=== PATIENT | male | born 1965 | race Caucasian/White ===

== ENCOUNTER → 2020-11-13 10:54 | Outpatient (BNVA) | payer OTHER, SELFPAY | PROVIDERS: Visit Provider Urology | DX: Z76.89 Persons encountering health services in other specified circumstances (principal) ==

== ENCOUNTER → 2022-06-04 15:16 | Outpatient (BNVA) | payer OTHER, SELFPAY | PROVIDERS: PCP Internal Medicine; Visit Provider Urology | DX: R79.89 Other specified abnormal findings of blood chemistry (principal); N40.1 Benign prostatic hyperplasia with lower urinary tract symptoms; N13.8 Other obstructive and reflux uropathy | CPT/HCPCS: 51798 ==

== ENCOUNTER 2023-02-01 07:54 | Outpatient (REF) | payer OTHER, SELFPAY ==
[2023-02-01 09:34] LABS: Prostate Specific Antigen 1.18 ng/mL (<0.05-4.0)
[2023-02-07 16:19] LABS: Testosterone, Total 151 ng/dL (250-1100)
== END 2023-02-01 07:55 | disposition home or self-care (01) ==
LOC: HO.LAB 07:54
PROVIDERS: Visit Provider Urology
DX: Z12.5 Encounter for screening for malignant neoplasm of prostate (principal); R79.89 Other specified abnormal findings of blood chemistry; E29.1 Testicular hypofunction
CPT/HCPCS: 36415; 84153; 84403; 85014

== ENCOUNTER → 2023-02-03 10:00 | Outpatient (BNVA) | payer OTHER, SELFPAY | PROVIDERS: PCP Internal Medicine; Visit Provider Urology | DX: Z13.89 Encounter for screening for other disorder (principal) ==

== ENCOUNTER → 2023-03-10 10:18 | Outpatient (BNVA) | payer OTHER, SELFPAY | PROVIDERS: PCP Internal Medicine; Visit Provider Urology ==

== ENCOUNTER 2023-09-14 16:06 | Outpatient (REF) | payer OTHER, SELFPAY ==
[2023-09-14 16:44] LABS: Hematocrit 37.6 % (42.0-52.0); Mean Corpuscular HGB Conc 34.6 g/dl (31.0-36.0); Mean Corpuscular Hemoglobin 30.5 pg (27.0-33.0); Mean Corpuscular Volume 88.3 fL (80.0-98.0); Platelet Count 215 X10*3/uL (160-400); Red Blood Count 4.26 X10*6/uL (4.60-5.80); Red Cell Distribution Width 12.9 % (11.0-16.0); White Blood Count 6.8 X10*3/uL (4.8-10.8)
[2023-09-14 17:26] LABS: Prostate Specific Antigen 0.62 ng/mL (<0.05-4.0)
[2023-09-18 21:48] LABS: Testosterone, Total 229 ng/dL (250-1100)
== END 2023-09-14 16:07 | disposition home or self-care (01) ==
LOC: HO.LAB 16:06
PROVIDERS: Visit Provider Urology
DX: E29.1 Testicular hypofunction (principal); Z12.5 Encounter for screening for malignant neoplasm of prostate
CPT/HCPCS: 36415; 84153; 84403; 85027

== ENCOUNTER 2023-09-20 13:23 | Outpatient (AMB) | payer OTHER, SELFPAY ==
--- NOTE | 2023-09-20 13:24 | MHC.OFFVIS ---
Intake Intake Visit Reasons: PSA/Testosterone(Testo Pending) Intake Note: Patient is Present for Telephone Follow Up For Urology Med: Tadalafil, Testosterone Antibiotic Allergy: None Blood Thinner: None Allergies No Known Allergies Allergy (Verified 06/04/22 07:50) HPI HPI Comments History of Present Illness Details Farhan is a pleasant male. He is a patient of Dr. Humphrey. He is seen for the following urologic conditions - hypogonadism - lower urinary tract symptoms - retrograde ejaculation - erectile dysfunction Telemedicine Evaluation 15 min Consultation [employer] Ellen Video attempted Good response to tadalafil 5 mg daily. Would like to add 20 mg on demand Testosterone low end of normal for him Increase T backed 0.5 cc subQ weekly Six month follow-up lab work Hypogonadism: 0.5 cc subcu weekly T is at higher end of range Reduced to 0.4 cc weekly He presents today for further evaluation and followup of his hypogonadism - stable lab work - doing well otherwise. Initial symptoms include erectile dysfunction Yes decreased libido Yes change in mood/depression Yes in muscle size/strength Yes increased fatigue/malaise Yes increased abdominal fat No tender breasts/gynecomastia No hair loss No osteopenia No The onset of symptoms has been gradual. Associate conditions include obstructive sleep apnea No CAD No diabetes Yes - with retrograde ejaculation dyslipidemia Yes hypertension Yes obesity No stress - financial, family, employment No heavy alcohol or illicit drug use No He has been taking antidepressants, anxiolytics, antipsychotics. Laboratory results baseline 03/16 T 248 01/15 T 309 02/15 T 520, PSA 0.5, 08/17 T 940 PS A0.6 02/16 T 740 PSA 0.6, 08/18 806, 0.5 04/19 897 PSA 1.4., 04/21 1300 1.6 - 02/20 P 1.2, T150, 09/22 T 229 Current therapy includes injectable exogenous testosterone 0.5 mg weekly. Response to therapy has been no change. Prior therapy includes topical, testosterone, minimal effect. Therapeutic plan Six months. Review [facility] Medical History Hypogonadism in male Insomnia Anxiety disorder GERD (gastroesophageal reflux disease) Asthma Diabetes mellitus, type II HTN (hypertension) Erectile disorder due to medical condition in male Urgency-frequency syndrome Bladder outlet obstruction Low testosterone Surgical History History of surgery Review of Systems Const All systems reviewed & are unremarkable except as noted in HPI and below Reports no additional complaints Resp Reports no additional complaints GI Reports no additional complaints Reports as per HPI Musc Reports no additional complaints Physical Exam Telemedicine evaluation Appropriate responses Regular breathing rate and rhythm HEENT Head: Yes normal to inspection Ears: hearing grossly normal bilaterally Eyes General: appearance normal, both eyes and all related structures Neck Neck: Yes normal visual inspection Chest Chest palpation & inspection: normal inspection of the chest Resp Effort & Inspection: normal respiratory effort and able to speak in complete sentences Assessment & Plan Assessment & Plan (1) Erectile dysfunction associated with type 2 diabetes mellitus: Code(s): E11.69 - Type 2 diabetes mellitus with other specified complication; N52.1 - Erectile dysfunction due to diseases classified elsewhere (2) Low testosterone in male: Code(s): R79.89 - Other specified abnormal findings of blood chemistry Plan Six month follow-up labs Orders: Orders Complete Blood Count no Diff 6 Months R79.89 - Other specified abnormal findings of blood chemistry Prostate Specific Antigen 6 Months R79.89 - Other specified abnormal findings of blood chemistry Testosterone, Total 6 Months R79.89 - Other specified abnormal findings of blood chemistry Medications: New syringe (disposable) (BD Luer-Brendan Syringe) Testosterone injection weekly 30 ea 0RF E11.69 - Type 2 diabetes mellitus with other specified complication, E34.9 - Endocrine disorder, unspecified, N52.1 - Erectile dysfunction due to diseases classified elsewhere syringe with needle, safety As directed 100 ea 0RF E11.69 - Type 2 diabetes mellitus with other specified complication, N52.1 - Erectile dysfunction due to diseases classified elsewhere tadalafil On demand medication take 60 minutes before intended activity 20 mg PO ONCE 30 days PRN 30 tabs 0RF sexual activity E11.69 - Type 2 diabetes mellitus with other specified complication, N52.1 - Erectile dysfunction due to diseases classified elsewhere Changed From testosterone cypionate (Depo-Testosterone) Two injections from each vial 80 mg (0.4 mL) subcut QWEEK 4 weeks 2 mL 1RF [id number] To testosterone cypionate (Depo-Testosterone) Two injections from each vial 100 mg (0.5 mL) subcut QWEEK 4 weeks 2 mL 5RF [id number] Refilled tadalafil (Cialis) 5 mg PO DAILY 90 days 90 tabs 1RF R79.89 - Other specified abnormal findings of blood chemistry Patient Instructions: Imaging studies, laboratory and physical exam results were discussed and reviewed in detail. No major barriers to patient understanding were identified. An opportunity to ask questions regarding the treatment plan was provided. All questions were answered. The patient expressed understanding and agreement with the above treatment plan. The patient is aware they should contact our office by phone for worsening of their current condition or the appearance of new urologic symptoms. Compliance is encouraged with any medications and followup testing that is ordered. It is a privilege to participate in the urologic care of your patient. If you have any questions or concerns regarding treatment for the above conditions, or other urologic issues, please do not hesitate to contact me. The office telephone contact is [phone]. This note is constructed using voice recognition software. While every effort has been made to ensure accuracy loader malt house errors may have been included. Yours sincerely, Dr Abhishek Angel MD, ORLIN [facility] - Urology Providers of Expert, Compassionate Care for the Genitourinary System Telehealth Telehealth Location of provider rendering services: practice address Location of patient: address on file Patient Identification confirmed using: Name, : Yes Telehealth method: video Patient verbally consented to treatment: Yes Patient verbally consented to billing insurance company: Yes Patient informed of any privacy concerns related to visit: Yes Coding Level of Care Code Tele Est Pt Level 3 (08603) Diagnoses Erectile dysfunction associated with type 2 diabetes mellitus E11.69; N52.1 Low testosterone in male R79.89
== END 2023-09-20 14:00 | disposition home or self-care (01) ==
LOC: HO.HUSH 13:23
PROVIDERS: PCP Internal Medicine; Visit Provider Urology
DX: E11.69 Type 2 diabetes mellitus with other specified complication (principal); N52.1 Erectile dysfunction due to diseases classified elsewhere; R79.89 Other specified abnormal findings of blood chemistry
CPT/HCPCS: 99213

== ENCOUNTER → 2023-09-20 13:23 | Outpatient (BNVA) | payer OTHER, SELFPAY | PROVIDERS: PCP Internal Medicine; Visit Provider Urology ==

== ENCOUNTER 2024-04-19 09:34 | Outpatient (REF) | payer OTHER, SELFPAY ==
[2024-04-19 10:33] LABS: Hematocrit 35.9 % (42.0-52.0); Hemoglobin 12.4 g/dl (14.0-18.0); Mean Corpuscular HGB Conc 34.5 g/dl (31.0-36.0); Mean Corpuscular Hemoglobin 30.2 pg (27.0-33.0); Mean Corpuscular Volume 87.3 fL (80.0-98.0); Mean Platelet Volume 10.9 fL (9.4-12.4); Platelet Count 191 X10*3/uL (160-400); Red Blood Count 4.11 X10*6/uL (4.60-5.80); Red Cell Distribution Width 13.4 % (11.0-16.0); White Blood Count 5.7 X10*3/uL (4.8-10.8)
[2024-04-23 17:14] LABS: Testosterone, Total 361 ng/dL (250-1100)
== END 2024-04-19 09:35 | disposition home or self-care (01) ==
LOC: HO.HMGCLDS 09:34
PROVIDERS: PCP Internal Medicine; Visit Provider Urology
DX: R79.89 Other specified abnormal findings of blood chemistry (principal); Z12.5 Encounter for screening for malignant neoplasm of prostate
CPT/HCPCS: 36415; 84153; 84403; 85027

== ENCOUNTER 2024-05-30 14:13 | Outpatient (AMB) | payer OTHER, SELFPAY ==
--- NOTE | 2024-05-30 14:18 | MHC.OFFVIS ---
Intake Visit Reasons: 8M Follow Up-PSA/Testosterone(set) Intake Note: Patient is Present for Follow Up Urology Medication:Tadalafil, Testosterone Antibiotic Allergies:None Blood Thinners: None Roll Tube Setter Required: No Allergies No Known Allergies Allergy (Verified 05/30/24 14:22) Medication List - Last Reconciled 05/30/24 by Abhishek Angel MD glipizide ER 2.5 mg PO DAILY hydrochlorothiazide 12.5 mg PO DAILY hydrochlorothiazide 25 mg PO DAILY lamotrigine 100 mg PO DAILY lisinopril 40 mg PO DAILY metformin 1,000 mg PO BID metoprolol tartrate 0 mg PO nifedipine ER 60 mg PO DAILY pantoprazole 40 mg PO DAILY pantoprazole 20 mg PO DAILY sertraline mg PO syringe (disposable) (BD Luer-Brendan Syringe) Testosterone injection weekly syringe with needle, safety As directed tadalafil (Cialis) 5 mg PO DAILY 90 days tadalafil 20 mg PO ONCE PRN 30 days testosterone cypionate (Depo-Testosterone) 100 mg (0.5 mL) subcut QWEEK 4 weeks trazodone 50 - 100 mg PO BEDTIME HPI Comments Details: Farhan is a pleasant male. He is a patient of Dr. Humphrey. He is seen for the following urologic conditions - hypogonadism - lower urinary tract symptoms - retrograde ejaculation - erectile dysfunction Telemedicine Evaluation 15 min Consultation [employer] Ellen Video attempted Good response to tadalafil 5 mg daily. Would like to add 20 mg on demand Testosterone low end of normal for him Increase T backed 0.5 cc subQ weekly Six month follow-up lab work Hypogonadism: 0.5 cc subcu weekly T is at higher end of range Reduced to 0.4 cc weekly He presents today for further evaluation and followup of his hypogonadism - stable lab work - doing well otherwise. Initial symptoms include erectile dysfunction Yes decreased libido Yes change in mood/depression Yes in muscle size/strength Yes increased fatigue/malaise Yes increased abdominal fat No tender breasts/gynecomastia No hair loss No osteopenia No The onset of symptoms has been gradual. Associate conditions include obstructive sleep apnea No CAD No diabetes Yes - with retrograde ejaculation dyslipidemia Yes hypertension Yes obesity No stress - financial, family, employment No heavy alcohol or illicit drug use No He has been taking antidepressants, anxiolytics, antipsychotics. Laboratory results baseline 5/17 T 248 01/15 T 309 02/15 T 520, PSA 0.5, 08/17 T 940 PS A0.6 02/16 T 740 PSA 0.6, 08/18 806, 0.5 04/19 897 PSA 1.4., 04/21 1300 1.6 - 02/20 P 1.2, T150, 09/22 T 229 Current therapy includes injectable exogenous testosterone 0.5 mg weekly. Response to therapy has been no change. Prior therapy includes topical, testosterone, minimal effect. Therapeutic plan Six months. Review [facility] Medical History Hypogonadism in male Insomnia Anxiety disorder GERD (gastroesophageal reflux disease) Asthma Diabetes mellitus, type II HTN (hypertension) Erectile disorder due to medical condition in male Urgency-frequency syndrome Bladder outlet obstruction Low testosterone Surgical History History of surgery Review of Systems Const Denies chills and Denies fever(s) Card Reports no additional complaints and Denies syncope Resp Denies cough GI Denies abdominal pain and Denies heartburn Reports as per HPI and Denies change in libido Neuro Denies syncope Psych Denies change in libido Endo Denies change in libido Physical Exam Const General: cooperative, healthy appearing, comfortable and no acute distress Orientation/consciousness: patient oriented x3 HEENT Face and sinus: Yes normal facial exam Mouth: moist mucous membranes Neck Neck: Yes normal visual inspection, Yes full ROM and Yes trachea midline Chest Chest palpation & inspection: normal inspection of the chest Resp Effort & Inspection: normal respiratory effort, able to speak in complete sentences and no respiratory distress GI Inspection: Yes normal to inspection Back/Spine/Pelvis Cervical Spine: normal cervical lordosis Thoracic/Lumbar Spine: thoracic and lumbar spine normal to inspection Skin General skin exam: no rashes or lesions noted Neuro General: patient oriented x3, gait normal, tone normal and moves all extremities Extrem General: Yes normal to inspection and Yes capillary refill normal Assessment & Plan Assessment & Plan (1) Erectile dysfunction associated with type 2 diabetes mellitus: Code(s): E11.69 - Type 2 diabetes mellitus with other specified complication; N52.1 - Erectile dysfunction due to diseases classified elsewhere Category: Medical (2) Low testosterone in male: Code(s): R79. - Other specified abnormal findings of blood chemistry Category: Medical Plan Refill medications Six month follow-up labs Orders: Orders Prostate Specific Antigen 6 Months R7. - Other specified abnormal findings of blood chemistry Testosterone, Total 6 Months R7. - Other specified abnormal findings of blood chemistry Complete Blood Count no Diff 6 Months R7 - Other specified abnormal findings of blood chemistry Medications: New insulin syringe-needle U-100 As directed 30 ea 0RF E29.1 - Testicular hypofunction, R7. - Other specified abnormal findings of blood chemistry needle (disp) 18 G (BD Regular [place]) As directed - draw up testosterone 30 ea 0RF E29.1 - Testicular hypofunction, R7. - Other specified abnormal findings of blood chemistry Patient Instructions: Imaging studies, laboratory and physical exam results were discussed and reviewed in detail. No major barriers to patient understanding were identified. An opportunity to ask questions regarding the treatment plan was provided. All questions were answered. The patient expressed understanding and agreement with the above treatment plan. The patient is aware they should contact our office by phone for worsening of their current condition or the appearance of new urologic symptoms. Compliance is encouraged with any medications and followup testing that is ordered. It is a privilege to participate in the urologic care of your patient. If you have any questions or concerns regarding treatment for the above conditions, or other urologic issues, please do not hesitate to contact me. The office telephone contact is [phone]. This note is constructed using voice recognition software. While every effort has been made to ensure accuracy solution professional errors may have been included. Yours sincerely, Dr Abhishek Angel MD, ORLIN [facility] - Urology Providers of Expert, Compassionate Care for the Genitourinary System Coding Level of Care Code Est Pt Level 3 (94992) Diagnoses Erectile dysfunction associated with type 2 diabetes mellitus E11.69; N52.1 Low testosterone in male R79.
== END 2024-05-30 14:39 | disposition home or self-care (01) ==
PROVIDERS: PCP Internal Medicine; Visit Provider Urology
DX: E11.69 Type 2 diabetes mellitus with other specified complication (principal); N52.1 Erectile dysfunction due to diseases classified elsewhere; R79.89 Other specified abnormal findings of blood chemistry
CPT/HCPCS: 99213

== ENCOUNTER → 2024-05-30 14:13 | Outpatient (BNVA) | payer OTHER, SELFPAY | PROVIDERS: PCP Internal Medicine; Visit Provider Urology ==

== ENCOUNTER 2024-11-30 08:55 | Outpatient (AMB) | payer OTHER, SELFPAY ==
--- NOTE | 2024-11-30 08:55 | MHC.OFFVIS ---
Intake Visit Reasons: 6M review(Pt refused labs) Intake Note: Patient is present for 6M (PT REFUSED LABS) Urology Medication:TADALAFIL,TESTOSTERONE Antibiotic Allergy:NONE Blood Thinner:NONE Sr. Vendor Management Associate Required: No Allergies No Known Allergies Allergy (Verified 11/30/24 08:56) HPI Comments Details: Farhan is a pleasant male. He is a patient of Dr. Humphrey. He is seen for the following urologic conditions - hypogonadism - lower urinary tract symptoms - retrograde ejaculation - erectile dysfunction Telemedicine Evaluation 15 min Consultation [employer] Ellen Video attempted Lab work not done Labs today and 6 months Rx done Hypogonadism: 0.5 cc subcu weekly T is at higher end of range Reduced to 0.4 cc weekly He presents today for further evaluation and followup of his hypogonadism - stable lab work - doing well otherwise. Initial symptoms include erectile dysfunction Yes decreased libido Yes change in mood/depression Yes in muscle size/strength Yes increased fatigue/malaise Yes increased abdominal fat No tender breasts/gynecomastia No hair loss No osteopenia No The onset of symptoms has been gradual. Associate conditions include obstructive sleep apnea No CAD No diabetes Yes - with retrograde ejaculation dyslipidemia Yes hypertension Yes obesity No stress - financial, family, employment No heavy alcohol or illicit drug use No He has been taking antidepressants, anxiolytics, antipsychotics. Laboratory results baseline 03/16 T 248 01/15 T 309 02/15 T 520, PSA 0.5, 08/17 T 940 PS A0.6 02/16 T 740 PSA 0.6, 08/18 806, 0.5 04/19 897 PSA 1.4., 04/21 1300 1.6 - 02/20 P 1.2, T150, 09/22 T 229 Current therapy includes injectable exogenous testosterone 0.5 mg weekly. Response to therapy has been no change. Prior therapy includes topical, testosterone, minimal effect. Therapeutic plan Six months. Review [facility] Medical History (Updated 11/30/24 @ 12:45 by Abhishek Angel MD) Hypogonadism in male Insomnia Anxiety disorder GERD (gastroesophageal reflux disease) Asthma Diabetes mellitus, type II HTN (hypertension) Erectile disorder due to medical condition in male Urgency-frequency syndrome Bladder outlet obstruction Low testosterone Surgical History History of surgery Review of Systems Const All systems reviewed & are unremarkable except as noted in HPI and below Reports no additional complaints Resp Reports no additional complaints GI Reports no additional complaints Reports as per HPI Musc Reports no additional complaints Physical Exam Telemedicine evaluation Appropriate responses Regular breathing rate and rhythm HEENT Head: Yes normal to inspection Ears: hearing grossly normal bilaterally Eyes General: appearance normal, both eyes and all related structures Neck Neck: Yes normal visual inspection Chest Chest palpation & inspection: normal inspection of the chest Resp Effort & Inspection: normal respiratory effort and able to speak in complete sentences Telehealth Telehealth Location of provider rendering services: practice address Location of patient: address on file Patient Identification confirmed using: Name, : Yes Telehealth method: voice only Patient verbally consented to treatment: Yes Patient verbally consented to billing insurance company: Yes Patient informed of any privacy concerns related to visit: Yes Assessment & Plan Assessment & Plan (1) Erectile dysfunction associated with type 2 diabetes mellitus: Code(s): E11.69 - Type 2 diabetes mellitus with other specified complication; N52.1 - Erectile dysfunction due to diseases classified elsewhere Category: Medical (2) BPH w urinary obs/LUTS: Code(s): N40.1 - Benign prostatic hyperplasia with lower urinary tract symptoms; N13.8 - Other obstructive and reflux uropathy Category: Medical (3) Low testosterone: Code(s): R79.89 - Other specified abnormal findings of blood chemistry Category: Medical Plan Rx 6m f/u Orders: Orders Prostate Specific Antigen 6 Months R79.89 - Other specified abnormal findings of blood chemistry Testosterone, Total 6 Months R79.89 - Other specified abnormal findings of blood chemistry Complete Blood Count no Diff 6 Months R79.89 - Other specified abnormal findings of blood chemistry Medications: Refilled tadalafil On demand medication take 60 minutes before intended activity 20 mg PO ONCE 30 days PRN 30 tabs 0RF sexual activity E11.69 - Type 2 diabetes mellitus with other specified complication, N52.1 - Erectile dysfunction due to diseases classified elsewhere testosterone cypionate (Depo-Testosterone) Two injections from each vial 100 mg (0.5 mL) subcut QWEEK 4 weeks 2 mL 5RF [id number] tadalafil (Cialis) 5 mg PO DAILY 90 days 90 tabs 1RF R79.89 - Other specified abnormal findings of blood chemistry Patient Instructions: Imaging studies, laboratory and physical exam results were discussed and reviewed in detail. No major barriers to patient understanding were identified. An opportunity to ask questions regarding the treatment plan was provided. All questions were answered. The patient expressed understanding and agreement with the above treatment plan. The patient is aware they should contact our office by phone for worsening of their current condition or the appearance of new urologic symptoms. Compliance is encouraged with any medications and followup testing that is ordered. It is a privilege to participate in the urologic care of your patient. If you have any questions or concerns regarding treatment for the above conditions, or other urologic issues, please do not hesitate to contact me. The office telephone contact is [phone]. This note is constructed using voice recognition software. While every effort has been made to ensure accuracy busperson errors may have been included. Yours sincerely, Dr Abhishek Angel MD, ORLIN [facility] - Urology Providers of Expert, Compassionate Care for the Genitourinary System Coding Level of Care Code Tele Est Pt Level 3 (00734) Diagnoses Erectile dysfunction associated with type 2 diabetes mellitus E11.69; N52.1 BPH w urinary obs/LUTS N40.1; N13.8 Low testosterone R79.89
--- OUTSIDE RECORDS SUMMARY | 2024-11-30 09:14 | XMS_ITS | Encounter Summary ---
Author Organization [facility] Address [phone] [place] [address] Care Team Providers Care Circular Ripsaw Operator Name Role Phone Jw Humphrey MD Primary Care Provider [phone]- [phone] Rita Wang PA-C Primary Care Provider Encounter Details Date Type Department Care Team (Late st Contact Info) Description 02/15/2024 Transcribe Orders [facility] SPECIMEN [address] [place] [address] Bridget Root CNP 2013 [facility] [address] [place] [phone] [email or web address] Social History Tobacco Use Types Packs/Day Years [...] with a working camera? Not on file Sex and Gender Information Value Date Recorded Sex Assigned at Male 02/07/2020 11:18 AM EDT Gender Identity Male 02/07/2020 11:18 AM EDT Sexual Orientation Straight 02/07/2020 11 :18 AM EDT documented as of this encounter Plan of Treatment Upcoming Encounters Date Type Department Care Team (Late st Contact Info) Description 01/22/2025 8:05 AM EDT Pre-Admission Testing [facility] PRETESTING [address] [place] [phone] Beto Ansari MD [address] [place] [address] [email or web address] 02/12/2025 Procedure Pass [facility] PERIOPERATIVE DEPT [address] [place] [address] 02/12/2025 11:30 AM EDT Hospital Encounter [facility] PERIOPERATIVE DEPT [address] [place] [address] Beto Ansari MD [address] [place] [address] [email or web address] 02/12/2025 11:30 AM EDT Anesthesia Event [facility] PERIOPERATIVE DEPT [address] [place] [address] Mayra Mckay, MAGDIEL [address] [place] [address] 02/12/2025 11:30 AM EDT - 02/12/2025 1:49 PM EDT Surgery [facility] PERIOPERATIVE DEPT [address] [place] [address] Beto Ansari MD [address] [place] [address] [email or web address] ARTHROPLASTY TOTAL HIP Scheduled Procedures Name Priority Associated Diagnoses Date/Ti me ARTHROPLASTY TOTAL HIP Primary osteoarthritis of left hip 02/12/2025 11:30 AM EDT MODIFIER ARTHROPLASTY HIP GURDEEP TAPERLOC MICROPLASTY Primary osteoarthritis of left hip 02/12/2025 11:30 AM EDT documented as of this encounter Visit Diagnoses Not on filedocumented in this encounter Care Teams Circular Ripsaw Operator Relationship Specialty Start Date End Date Jw Humphrey MD [address] [place] [phone] PCP - General Internal Medicine 09/27/23 10/24/24 Rita Wang PA-C [address] [place] [phone] PCP - General 10/25/24 documented as of this encounter Additional Source Comments The information contained in this document represents components of the legal health record. It is not the complete legal health record.[facility]
--- OUTSIDE RECORDS SUMMARY | 2024-11-30 09:14 | XMS_ITS | Encounter Summary ---
Author Organization [facility] Address [phone] [place] [address] Care Team Providers Care Client Director Name Role Phone Jw Humphrey MD Primary Care Provider [phone]- [phone] Jw Humphrey MD Primary Care Provider [phone]- [phone] Rita Wang PA-C Primary Care Provider Encounter Details Date Type Department Care Team (Late Contact Info) Description 06/18/2019 Procedure Pass [facility] PERIOPERATIVE DEPT [address] [place] [phone] Social History Tobacco Use Types Packs/Day Years Used Date Smoking Tobacco: Former Cigarettes 0.5 27.9 0 06/12/1991 - 05/22/2019 Smokeless Tobacco: Former Chew Quit: 06/12/1989 Comments:rough estimate star t date Sex and Gender Information Value Date Recorded Sex Assigned at Male 02/07/2020 11:18 AM EDT Gender Identity Male 02/07/2020 11:18 AM EDT Sexual Orientation Straight 02/07/2020 11 :18 AM EDT documented as of this encounter Plan of Treatment Upcoming Encounters Date Type Department Care Team (Late Contact Info) Description 01/22/2025 8:05 AM EDT Pre-Admission Testing [facility] PRETESTING [address] [place] [id number] Beto Ansari MD [address] [place] [address] [email or web address] 02/12/2025 Procedure Pass [facility] PERIOPERATIVE DEPT [address] [place] [address] 02/12/2025 11:30 AM EDT Hospital Encounter [facility] PERIOPERATIVE DEPT [address] [place] [address] Beto Ansari MD [address] [place] [address] [email or web address] 02/12/2025 11:30 AM EDT Anesthesia Event [facility] PERIOPERATIVE DEPT [address] [place] [address] Mayra Mckay CNP [address] [place] [address] [email or web address] 02/12/2025 11:30 AM EDT - 02/12/2025 1:49 PM EDT Surgery [facility] PERIOPERATIVE DEPT [address] [place] [address] Beto Ansari MD [address] [place] [address] [email or web address] ARTHROPLASTY TOTAL HIP Scheduled Procedures Name Priority [...] AM EST documented as of this encounter Care Teams Client Director Relationship Specialty Start Date End Date Jw Humphrey MD PCP - General Internal Medicine 06/10/19 09/26/23 Jw Humphrey MD [address] [place] [phone] PCP - General Internal Medicine 09/27/23 10/24/24 Rita Wang PA-C [address] [place] [phone] PCP - General 10/25/24 documented as of this encounter Additional Source Comments The information contained in this document represents components of the legal health record. It is not the complete legal health record.[facility]
--- OUTSIDE RECORDS SUMMARY | 2024-11-30 09:16 | XMS_ITS | Clinical Summary ---
Author Organization [facility] Address [phone] [place] [id number] Care Team Providers Care Leather Drier Name Role Phone Rita Wang PA-C Primary Care Provider Allergies Active Allergy Reactions Criticality Noted Date Comments Sulfamethoxazole-Trimethop rim Diarrhea,Nausea and/or Vomiting Medium 06/23/2019 Medications Medication Sig Dispensed Refills Start Date End Date Status metFORMIN (GLUCOPHAGE) 500 MG tablet Take 1,000 mg by mouth 2 (two) times a day with meals. Active lisinopril (PRINIVIL,ZESTRIL ) 40 MG tablet Take 40 mg by mouth daily. Active atorvastatin (LIPITOR) 10 MG tablet Take 10 mg by mouth daily. Active NIFEdipine (ADALAT CC) 60 MG 24 hr tablet Take 60 mg by mouth daily. Active lamoTRIgine (LAMICTAL) 100 MG tablet Take 100 mg by mouth daily. Active metoprolol tartrate (LOPRESSOR) 100 MG tablet Take 100 mg by mouth daily. Active sertraline (ZOLOFT) 100 MG tablet Take 200 mg by mouth daily. Active tamsulosin (FLOMAX) 0.4 mg Cap Take 0.4 mg by mouth nightly at bedtime. Active traZODone (DESYREL) 50 MG tablet Take 25-50 mg by mouth nightly at bedtime. Active glipiZIDE (GLUCOTROL XL) 2.5 MG 24 hr tablet Take 2.5 mg by mouth daily. 09/18/2022 Active SOOLANTRA 1 % APPLY IN THE MORNING TO FACE ROSACEA 2022 Active testosterone cypionate (DEPO-TESTOTERONE ) 200 mg/mL injection INJECT 80 MG (0.4 ML) SUBCUTANEOUSLY EVERY WEEK FOR 4 WEEKS TWO INJECTIONS FROM EACH VIAL 11/15/2022 Active tadalafiL (CIALIS) 5 MG tablet TAKE 1 TABLET BY MOUTH ONCE DAY. 11/08/2022 Active doxycycline hyclate (VIBRAMYCIN) 100 MG capsule Take 100 mg by mouth daily. Takes once daily for rosacea 02/01/2023 Active celecoxib (CELEBREX) 200 MG capsule Take 1 capsule (200 mg total) by mouth 2 (two) times a day as needed for pain (specific location in comments). 60 capsule 12/15/2023 Active metoprolol tartrate (LOPRESSOR) 50 MG tablet Take 50 mg by mouth nightly at bedtime. 01/15/2024 Active hydroCHLOROthiazi de (HYDRODIURIL) 25 MG tablet Take 1 tablet by mouth every morning. 12/07/2023 Active acetaminophen (TYLENOL) 500 MG tablet Take 2 tablets (1,000 mg total) by mouth every 8 (eight) hours as needed. 03/20/2024 Active amoxicillin (AMOXIL) 500 MG capsule Take 4 capsules (2,000 mg total) by mouth once as needed. Take 4 capsules one hour prior to any dental work or procedures. 12 capsule 1 04/16/2024 Active Active Problems Problem Noted Date Diagnosed Date History of total right hip replacement 4 Overview (03/20/2024): S/p T LORRI 03/19/24 Dr. Beto Marshall [facility] Primary osteoarthritis of right hip 03/19/2024 Wound infection 08/02/2019 Assessment & Plan (02/07/2020 8:27 PM EDT): Necrotizing soft tissue infection of his right foot and ankle debrided in late April and again in May 2019. He was home 06/19-07/27 with a VAC dressing and off antibiotics, and made good progress. On 07/27, he underwent planned readmission for STSG coverage of the wound. At that time, there was some concern for infection (malodor but not overt purulence), and the wound was irrigated with a solution of cefazolin, gentamicin, and bacitracin, and he was treated with systemic antibiotics post-op, primarily vancomycin and ciprofloxacin. Cultures from the OR grew enterococcus, peptostreptococcus, and corynebacterium. He did well, and was discharged home 08/01, on amoxicillin-clavulanate. He returned 08/02 with fever, chills, and new erythema about the wound, with serous discharge. He was started on empiric vancomycin, cefepime, and metronidazole, and promptly defervesed. Metronidazole was stopped 08/03, and cefepime was changed to ceftriaxone 08/05. He returned home 08/08 and did well subsequently, continuing vancomycin and ceftriaxone through 08/22. The wounds healed and he was doing very well at the time of follow-up with Dr. Blakely in October. That has remained the case. I have no objection to proceeding with right total hip arthroplasty. Assessment & Plan (08/16/2019 10:13 PM EDT): Necrotizing soft tissue infection of his right foot and ankle debrided in late April and again in May of this year. He was home 06/19-07/27 with a VAC dressing and off antibiotics, and made good progress. On 07/27, he underwent planned readmission for STSG coverage of the wound. At that time, there was some concern for infection (malodor but not overt purulence), and the wound was irrigated with a solution of cefazolin, gentamicin, and bacitracin, and he was treated with systemic antibiotics post-op, primarily vancomycin and ciprofloxacin. Cultures from the OR grew enterococcus, peptostreptococcus, and corynebacterium. He did well, and was discharged home 08/01, on amoxicillin-clavulanate. He returned 08/02 with fever, chills, and new erythema about the wound, with serous discharge. He was started on empiric vancomycin, cefepime, and metronidazole, and promptly defervesed. Metronidazole was stopped 08/03, and cefepime was changed to ceftriaxone 08/05. He returned home 08/08 and has done well since then, on vancomycin and ceftriaxone. At this time, the skin graft is largely intact, without purulence or evidence of surrounding cellulitis, though with some serous discharge, and some bleeding distally. I discussed the situation with Dr. Blakely and we agreed, out of an abundance of caution, to continue antibiotics through 08/22. S/P split thickness skin graft 07/27/2019 Anemia 06/15/2019 Assessment & Plan (06/15/2019 2:25 PM EDT): Hgb persistently low in the 8s. Normocytic. Wound vac has been draining sanguinous fluid but H/H remains stable. - Check iron studies, folate, B12 - Transfuse if hgb<7 Cellulitis and abscess of foot 06/12/2019 Assessment & Plan (06/15/2019 2:24 PM EDT): Patient presented to [facility] on 05/22 with right ankle pain/swelling and erythema in the setting of non-penetrating trauma several days before. S/p I&D on 05/24 and 05/26 with Cx growing MSSA. Initially started on vancomycin, narrowed to cefazolin based on culture data. ID was consulted at OSH for He's abscess (which is pus/necrosis encapsulated by granulation tissue) concerning for osteo and evidence of tenosynovitis. ID was consulted, recommended at least 6 weeks of cefazolin from 05/26 (last I&D). During the hospital course he developed necrotic area on the dorsal lateral side of his foot, concerning for persistent infection/osteomyelitis needing further I&D and flap reconstruction for exposed tendons on the dorsal side for which he has been transferred to [facility]. Ankle and foot xrays with findings concerning for osteo and subcutaneous gas. S/p OR 06/13 with Ortho debridement of his right foot and ankle, with placement of wound vac. OR cultures growing enterobacter, and cultures from OSH 05/24 grew MSSA (records uploaded to [facility]). Since plan will be managed by Plastic Surgery going forward, he is transferring to their service today. Pain control has been challenging. In the past 24hr, he received 40mg of oxycontin, plus 35mg oxycodone prn, plus 1.5mg IV dilaudid prn. Based on equianalgesic conversion, this equals approximately 95mg of oxycodone in 24hr. He has tolerated it well without altered mental status, drowsiness, or decreased respirations. He says that he slept better last night and his pain is down to 7/10 now. Would recommend uptitrating the long-acting meds as below to reduce the need for breakthrough meds. - Transfer to Plastic Surgery service - Appreciate Ortho recs- now signed off - Per ortho, should wear multi-podus boot for RLE and NWB (they confirmed he should we this all the time, including at night to immobilize the foot) - MRI no longer needed per ortho - Discontinued IV cefazolin - Started IV Cefepime and IV Flagyl per ID recs - Appreciate ID consult - F/u OR culture data Pain control: - Increase Oxycontin to 30mg q12hr standing, uptitrate based on prn needs - Oxycodone 5mg Q3hr prn moderate breakthrough pain - IV dilaudid 0.5mg Q3hr prn severe breakthrough pain - Tylenol 975mg TID standing - Increased gabapentin to 300mg TID - Elevate RLE Atrial fibrillation 06/12/2019 Assessment & Plan (06/15/2019 2:24 PM EDT): Patient with a known history of pAfib for which he is rate controlled and on baby ASA at home. Following repeat debridement in OR on 05/26; patient flipped into Afib; likely from septic shock and required ICU stay. CHADs Vasc - 2; however held given potential surgical interventions. Had an TTE at OSH which was unremarkable. EKG was repeated, noted to be in NSR. - Continue home dose of metoprolol 100 mg QAM and 50mg QPM - Continue 81 mg ASA - No events on tele so has been discontinued - Will need to have discussion after the surgical intervention to determine if he should be on NOAC for stroke prevention HTN (hypertension) 06/12/2019 Assessment & Plan (06/15/2019 2:17 PM EDT): Stable, but on fairly robust regimen - and it is unclear what type of work-up has been done. Better controlled now that pain is better managed. - IAC consult for PCP records - Continue home dose of 40 mg lisinopril - Continue home dose of 60 mg nifedipine ER - Continue home dose of 12.5 mg HCTZ - Continue with home dose of 100 mg QAM and 50 mg QPM metoprolol Anxiety and depression 06/12/2019 Assessment & Plan (06/13/2019 2:21 PM EDT): Stable. - Continue home dose of 200 mg sertraline daily DM (diabetes mellitus), type 2 06/12/2019 Assessment & Plan (06/14/2019 3:54 PM EDT): Patient reports stable management at home and takes metformin. He denies checking blood sugars, but reports in general that in the past are below 200's. A1c checked this admission; noted to be 7.5%. BG mostly 100s. - Continue with sliding scale insulin and FS QID Adverse effect of anesthetic 04/30/2019 Overview (11/05/2024): aspiration pneumonia Encounters Date Type Department Care Team Description 11/12/2024 7:40 AM EST - 11/12/2024 11:59 PM EST Hospital Encounter [facility] [address] [place] [address] Bridget Root CNP Discharge Disposition: Home or Self Care 11/09/2024 Orders Only [facility] [address] [address] Bridget Root CNP Type 2 diabetes mellitus with other skin complication, without long-term current use of insulin (Primary Dx) 2024 Orders Only [facility] [address] [address] Bridget Root CNP Type 2 diabetes mellitus with other skin complication, without long-term current use of insulin (Primary Dx) 10/18/2024 11:03 AM EST - 10/18/2024 11:59 PM EST Hospital Encounter [facility] - Diagnostic Radiology, [address] [place] [address] [place] [address] Jael Jones PA-C Discharge Disposition: Home or Self Care 10/18/2024 10:45 AM EST - 10/18/2024 11:02 AM EST Hospital Encounter [facility] [address] [place] [address] Bridget Root CNP Discharge Disposition: Home or Self Care 10/18/2024 9:30 AM EST Office Visit [facility] [address] [place] [address] [place] [address] Bridget Root CNP Kalnenieks, Melonie C, PA-C Type 2 diabetes mellitus with other skin complication, without long-term current use of insulin (Primary Dx); Preop testing; Primary osteoarthritis of left hip 10/18/2024 Orders Only [facility] 2013 [facility] [place] [address] Jael Jones PA-C Left hip pain (Primary Dx) 10/18/2024 Orders Only [facility] [address] [facility] [place] [address] Bridget Root CNP Pre-op testing (Primary Dx) 10/10/2024 Orders Only [facility] [address] [facility] [place] [address] Jael Jones PA-C Aftercare following hip joint replacement surgery, unspecified laterality (Primary Dx) 10/01/2024 Documentation [facility] [address] [facility] [place] [address] Bridget Root CNP from Last 3 Months Immunizations Name Administration Dates Next Due Influenza Quadrivalent Preservative Free IM 12/2018 Pneumococcal polysaccharide PPSV23 08/01/2019 Social History Tobacco Use Types Packs/Day Years Used Date Smoking Tobacco: Former Cigarettes 0.5 27.9 0 06/12/1991 - 05/22/2019 Smokeless Tobacco: Former Chew Quit: 06/12/1989 Tobacco Cessation:Counseling Given: Not Answered Comments:rough estimate start date Alcohol Use Standard Drinks/Week Comments Never [...] Orientation Straight 02/07/2020 11 :18 AM EDT Last Filed Vital Signs Vital Sign Reading Time Taken Comments Blood Pressure 146/82 10/18/2024 9:31 AM EST Pulse 60 10/18/2024 9:31 AM EST Temperature 36.3 ??C (97.4 ??F) 03/19/2024 7:00 PM ED T Respiratory Rate 18 10/18/2024 9:31 AM EST Oxygen Saturation 96% 10/18/2024 9:31 AM EST Inhaled Oxygen Concentration - - Weight 106 kg (233 lb 9.6 oz) 10/18/2024 9:31 AM EST Height 172.7 cm (5' 8 ) 10/18/2024 9:31 AM EST Body Mass Index 35.52 10/18/2024 9:31 AM EST Plan of Treatment Upcoming Encounters Date Type Department Care Team (Late st Contact Info) Description 01/22/2025 8:05 AM EDT Pre-Admission Testing [facility] PRETESTING [address] [place] [address] Beto Ansari MD [address] [place] [address] [email or web address] 02/12/2025 Procedure Pass [facility] PERIOPERATIVE DEPT [address] [place] [address] 02/12/2025 11:30 AM EDT Hospital Encounter [facility] PERIOPERATIVE DEPT [address] [place] [address] Beto Ansari MD [address] [place] [address] [email or web address] 02/12/2025 11:30 AM EDT Anesthesia Event [facility] PERIOPERATIVE DEPT [address] [place] [address] Mayra Mckay, MAGDIEL [address] [place] [address] 02/12/2025 11:30 AM EDT - 02/12/2025 1:49 PM EDT Surgery [facility] PERIOPERATIVE DEPT [address] [place] [address] Beto Ansari MD [address] [place] [address] [email or web address] ARTHROPLASTY TOTAL HIP Scheduled Procedures Name Priority Associated Diagnoses Date/Ti me ARTHROPLASTY TOTAL HIP Primary osteoarthritis of left hip 02/12/2025 11:30 AM EDT MODIFIER ARTHROPLASTY HIP GURDEEP TAPERLOC MICROPLASTY Primary osteoarthritis of left hip 02/12/2025 11:30 AM EDT Health Maintenance Due Date Last Done Comments Adult Td,Tdap Booster 1966 HEPATITIS B SCREENING 1984 HEPATITIS C SCREENING 1984 HIV ONE-TIME SCREENING (18-65 YEARS) 1984 HEPATITIS B VACCINES (1 of 3 - 19+ 3-dose series) 1985 COLOGUARD 2011 COLONOSCOPY 2011 COLORECTAL CANCER SCREENING 2011 FIT TEST 2011 FOBT 2011 SIGMOIDOSCOPY 2011 VIRTUAL COLONOSCOPY 2011 ZOSTER VACCINES (1 of 2) 2016 DIABETIC EYE EXAM 06/12/2019 INFLUENZA VACCINE (#1) 2024 , 08/06/2022, 09/20/2021, Additional history exists COVID-19 VACCINE ( - 2023- season) 2024 09/20/2021, 01/25/2021, 01/04/2021 DEPRESSION SCREENING 11/23/2024 11/23/2023 HEMOGLOBIN A1C 02/10/2025 11/12/2024, 09/30, 03/13/2024, Additional history exists BLOOD PRESSURE 04/18/2025 10/18/2024 PNEUMOCOCCAL VACCINES (50+ years) (3 of 3 - PCV20 or PCV21) 08/14/2025 08/14/2020, 08/01/2019 CREATININE LEVEL 10/18/2025 10/18/2024, , 08/04/2019, Additional history exists POTASSIUM LEVEL 10/18/2025 10/18/2024, 01/29, 08/04/2019, Additional history exists SMOKING STATUS SCREENING (Every 5 Years) 10/18/2029 10/18/2024 HEPATITIS A VACCINES Aged Out No long er eligible based on patient's age to complete this topic HIB VACCINES Aged Out No longer eligi ble based on patient's age to complete this topic MENINGOCOCCAL VACCINES (ACWY) Aged Out No longer eligible based on patient's age to complete this topic Medical Devices Implanted Type Area Caustic Mixer Device Identifier Shelf Expiration Date Model / Serial / Lot Dressing Wound 4.0x10in Bilayer Matrix Cross Linked Bovine Tendon Collagen Silicone - [id number] Implanted:Qty: 1 on 06/18/2019 by Gideon Blakely MD at [facility] [employer] Right: Foot INTE[employer]IS[employer] ETTA 09/29/2020 [id number] / / [id number] Screw Bone 25x6.5mm Cortical Acetabular Self Tapping Cable Ready Trauma Trilogy Hip 16a - [id number] Implanted:Qty: 1 on 03/19/2024 by Beto Ansari MD at [facility] Right: Acetabulum GUR[employer]EP [employer] [id number] 01/29/2033 [id number] / / [id number] Description:The implant type , laterality (when applicable), size, and expiration date have been visually and verbally confirmed by the Surgeon, Circulating RN and Scrub Personnel. Screw Bone 20x6.5mm Cortical Acetabular Self Tapping Cable Ready Trauma Trilogy Hip 16a - [id number] Implanted:Qty: 1 on 03/19/2024 by Beto Ansari MD at [facility] Right: Acetabulum [employer]EP [employer] [id number] 1 04/22/2033 [id number] / / [id number] Description:The implant type , laterality (when applicable), size, and expiration date have been visually and verbally confirmed by the Surgeon, Circulating RN and Scrub Personnel. Dressing Wound 2.0 Delmis Skin Replacement Bilayer Matrix - [id number] Implanted:Qty: 1 on 07/27/2019 by Gideon Blakely MD at [facility] Right: Foot [employer] ETTA 01/28/2021 [id number] / / [id number] Tamaroa Suture 4.75mm Healicoil Regensorb With 2 #2 Ultrabraid - [id number] Implanted:Qty: 1 on 12/30/2022 by Jassi King DO at [facility] Right: Shoulder ZAIDI 08/06/2025 [id number] / / [id number] Tamaroa Suture 4.75mm Healicoil Regensorb With 2 #2 Ultrabraid - [id number] Implanted:Qty: 1 on 12/30/2022 by Jassi King DO at [facility] Right: Shoulder ZAIDI 07/15/2025 [id number] / / [id number] Tamaroa Suture 4.5mm Arthroscopy Reelx Stt Peek Ss Core Knotless Shapr Tip Expandable Bx/5ea - [id number] Implanted:Qty: 4 on 12/30/2022 by Jassi King DO at [facility] Right: Shoulder [employer]AB[employer]OS[employer] 09/06/2024 [id number] / / [id number] Hip Shell 52mm Acetabular Multihole G7 - [id number] Implanted:Qty: 1 on 03/19/2024 by Beto Ansari MD at [facility] Right: Acetabulum [employer] 09/19/2033 [id number] / / [id number] Description:The implant type , laterality (when applicable), size, and expiration date have been visually and verbally confirmed by the Surgeon, Circulating RN and Scrub Personnel. Hip Liner 36mm E Acetabular Neutral G7 Vit E - [id number] Implanted:Qty: 1 on 03/19/2024 by Beto Ansari MD at [facility] Right: Acetabulum [employer]EP [employer] [id number] 12/19/2028 [id number] / / [id number] Description:The implant type , laterality (when applicable), size, and expiration date have been visually and verbally confirmed by the Surgeon, Circulating RN and Scrub Personnel. Hip Stem Size 12 Taperloc Pps Coated Complete Microplasty High Offset - [id number] Implanted:Qty: 1 on 03/19/2024 by Beto Ansari MD at [facility] Right: Acetabulum [employer] [id number] 07/28/2033 [id number] / / [id number] Description:The implant type , laterality (when applicable), size, and expiration date have been visually and verbally confirmed by the Surgeon, Circulating RN and Scrub Personnel. Femoral Head 36mm Plus 3mm Type 1 Taper Hip Biolox Delta Modular Ceramic - [id number] Implanted:Qty: 1 on 03/19/2024 by Beto Ansari MD at [facility] Right: Acetabulum [employer] [id number] 08/15/2033 [id number] / / [id number] Description:The implant type , laterality (when applicable), size, and expiration date have been visually and verbally confirmed by the Surgeon, Circulating RN and Scrub Personnel. Procedures Procedure Name Priority Date/Time Associated Diagnosis Comments HEMOGLOBIN A1C Routine 11/12/2024 7:52 AM EST Type 2 diabetes mellitus with other skin complication, without long-term current use of insulin MRSA/MSSA PRE-OP PCR Routine 10/18/2024 12:41 PM EST Pre-op testing XR HIP 2 VW LEFT PLUS PELVIS Routine 10/18/2024 11:17 AM EST Left hip pain HEMOGLOBIN A1C Routine 10/18/2024 10:58 AM EST Type 2 diabetes mellitus with other skin complication, without long-term current use of insulin BASIC METABOLIC PANEL Routine 10/18/2024 10:58 AM EST Preop testing CBC Routine 10/18/2024 10:58 AM EST Preop testing from Last 3 Months Results * (ABNORMAL) Hemoglobin A1c (11/12/2024 7:52 AM EST) Only the most recent of2 resultswithin the time period is included. HEMOGLOBIN A1C 8.2(H) 4.3 - 5.8 % [facility] Blood 11/12/2024 7:52 AM EST 11/12/2024 7:56 AM EST Bridget Fuller Ivett VELOZ LAB BLOOD ORDERABLE S Performing Organization Address City/[facility]/ZIP Co de Phone Number [facility] [address] [place] [address] * MRSA/MSSA PRE-OP PCR (10/18/2024 12:41 PM EST) MRSA PCR SCREEN MRSA NEGATIVE MRSA NEGATIVE [facility] Staph Aureus PCR Screen SA NEGATIVE SA NEGATIVE [facility] Nasal (Nasal) 10/18/2024 12: 41 PM EST 10/18/2024 1:18 PM EST Bridget Root MAGDIEL NON CULTURE MICROBI OLOGY Performing Organization Address City/[facility]/ZIP Co de Phone Number [address] [address] * XR HIP 2 VW LEFT PLUS PELVIS (10/18/2024 11:17 AM EST) Anatomical Region Laterality Modality Hip, Pelvis Computed Radiogr aphy 10/18/2024 1:16 PM EST Impressions 10/18/2024 1:20 PM EST Moderate left hip degenerative change. Narrative 10/18/2024 1:20 PM EST XR HIP 2 VW LEFT PLUS PELVIS Referring clinician's provided indication for this examination in Epic: Pain COMPARISON: XR HIP 2 VW RIGHT PLUS PELVIS ; XR HIPS 1 VW EA BILAT PLUS PELVIS FINDINGS: Pelvis: The pelvis is incompletely imaged. The sacrum is largely obscured by overlying bowel contents. Intact sacroiliac joints and pubic symphysis. Frontal evaluation of the right hip demonstrates total hip arthroplasty. Left hip: No displaced fracture. Normal alignment. Moderate degenerative change with bony proliferation about the lateral acetabulum. Procedure Note Driss Zepeda MD - 10/18/2024 XR HIP 2 VW LEFT PLUS PELVIS Referring clinician's provided indication for this examination in Epic:Pain COMPARISON: XR HIP 2 VW RIGHT PLUS PELVIS ; XR HIPS 1 VW EABILAT PLUS PELVIS FINDINGS: Pelvis: The pelvis is incompletely imaged. The sacrum is largely obscuredby overlying bowel contents. Intact sacroiliac joints and pubic symphysis.Frontal evaluation of the right hip demonstrates total hip arthroplasty. Left hip: No displaced fracture. Normal alignment. Moderate degenerativechange with bony proliferation about the lateral acetabulum. IMPRESSION: Moderate left hip degenerative change. Jael Jones PA-C IMG XR PELVIS * (ABNORMAL) CBC (10/18/2024 10:58 AM EST) WBC 6.47 4.00 - 11.00 K/uL [facility] RBC 4.64 4.50 - 5.90 M/uL [facility] HGB 13.7 13.5 - 17.5 g/dL [facility] HCT 40.0(L) 41.0 - 53.0 % [facility] PLT 224 150 - 450 K/uL [facility] MCV 86.2 80.0 - 100.0 fL [facility] MCH 29.5 27.0 - 31.0 pg [facility] MCHC 34.3 32.0 - 36.0 g/dL [facility] RDW 13.4 11.5 - 14.5 % [facility] MPV 11.1 8.4 - 12.0 fL [facility] NRBC 0.00 0.00 /100 WBCs [facility] Blood 10/18/2024 10:5 8 AM EST 10/18/2024 11:56 AM EST Bridget Root OPERATION SHIFT SUPERVISOR LAB BLOOD ORDERABLE S [facility] [address] [place] [address] * (ABNORMAL) Basic metabolic panel (10/18/2024 10:58 AM EST) SODIUM 138 136 - 145 mmol/L [facility] CHLORIDE 99 95 - 106 mmol/L [facility] POTASSIUM 4.2 3.5 - 5.2 mmol/L [facility] CO2 26 20 - 31 mmol/L [facility] BUN 18 9 - 23 mg/dL [facility] CREATININE 1.09 0.50 - 1.30 mg/dL [facility] GLUCOSE 207(H) 74 - 106 mg/dL [facility] CALCIUM 9.3 8.7 - 10.4 mg/dL [facility] EGFR 79 >60 mL/min/1.7 3m2 [facility] Comment:Estimated glomerular filtration rate calculated using the CKD-EPI refit equation. ANION GAP 13 3 - 17 mmol/L [facility] Blood 10/18/2024 10:5 8 AM EST 10/18/2024 11:58 AM EST Bridget Root OPERATION SHIFT SUPERVISOR LAB BLOOD ORDERABLE S Performing Organization Address City/State/[facility] Co de Phone Number [facility] [address] [place] [address] from Last 3 Months Advance Directives Documents on File Type Date Recorded Patient Plycor Operator Expl anation Healthcare Proxy 06/13/2019 * Full Code (Presumed) (Latest Code Status on File) Date Activated Date Inactivated Comments 08/02/2019 5:22 PM 08/08/2019 2:17 PM * Full Code (Presumed) Date Activated Date Inactivated Comments 07/27/2019 10:00 AM 08/01/2019 4:12 PM * Full Code (Presumed) Date Activated Date Inactivated Comments 06/12/2019 6:55 PM 06/19/2019 6:10 PM Care Teams Leather Drier Relationship Specialty Start Date End Date Rita Wang PA-C [address] [facility] [address] [place] [address] PCP - General 10/25/24 Additional Source Comments The information contained in this document represents components of the legal health record. It is not the complete legal health record.[facility]
--- OUTSIDE RECORDS SUMMARY | 2024-11-30 09:16 | XMS_ITS | Encounter Summary ---
Author Organization [facility] Address [phone] [place] [address] Care Team Providers Care Systems Planner Name Role Phone Unavailable Primary Care Provider Unavailabl e Encounter Details Date Type Department Care Team (Late st Contact Info) Description 08/16/2003 Hospital Encounter [facility] [address] [place] [address] Jaja Hudson, MECHANICAL RELIABILITY ENGINEER [facility] BLK 1500BLK [address] [place] [address] Social History Tobacco Use Types Packs/Day Years [...] Description 01/22/2025 8:05 AM EDT Pre-Admission Testing [facility] [address] [place] [address] Beto Ansari MD 2013 [place] [address] [email or web address] 02/12/2025 Procedure Pass [facility]PT [address] [place] [address] 02/12/2025 11:30 AM EDT Hospital Encounter [facility] [address] [place] [address] Beto Ansari MD 2013 [place] [address] [email or web address] 02/12/2025 11:30 AM EDT Anesthesia Event [facility]PT [address] [place] [address] Mayra Mckay CNP 2013 [place] [address] 02/12/2025 11:30 AM EDT - 02/12/2025 1:49 PM EDT Surgery [facility]PT 2013 [place] [address] Beto Ansari MD [address] [place] [address] [email or web address] ARTHROPLASTY TOTAL HIP Scheduled Procedures Name Priority Associated Diagnoses Date/Ti me ARTHROPLASTY TOTAL HIP Primary osteoarthritis of left hip 02/12/2025 11:30 AM EDT MODIFIER ARTHROPLASTY HIP GURDEEP TAPERLOC MICROPLASTY Primary osteoarthritis of left hip 02/12/2025 11:30 AM EDT documented as of this encounter Procedures Procedure Name Priority Date/Time Associated Diagnosis Comments XR LOWER EXTREMITY OUTSIDE (NO INTERPRETATION) Routine 08/16/2003 12:00 AM EDT documented in this encounter Results * XR Lower Extremity Outside (No Interpretation) (08/16/2003 12:00 AM EDT) Narrative [facility] - 06/15/2019 9:28 AM EDT This study is for PACS storage only and not for interpretation. Jaja Hudson CNP IMG OUTSIDE IMAGING W/OUT INTERPRETATION [facility] documented in this encounter Visit [...] It is not the complete legal health record.[facility]
--- OUTSIDE RECORDS SUMMARY | 2024-11-30 09:17 | XMS_ITS | Encounter Summary ---
Author Organization [facility] Address [phone] [place] [address] Care Team Providers Care Collar Closer Lockstitch Name Role Phone Jw Humphrey MD Primary Care Provider +1- [phone] Rita Wang PA-C Primary Care Provider Encounter Details Date Type Department Care Team (Late st Contact Info) Description 12/15/2023 Telephone [facility] Department of Orthopaedic Surgery, Arthroplasty Service [address] [place] [address] Beto Ansari MD 2013 [place] [address] [email or web address] Social History Tobacco Use Types Packs/Day Years [...] Description 01/22/2025 8:05 AM EDT Pre-Admission Testing [facility] [address] [place] [address] Beto Ansari MD 2013 [place] [address] [email or web address] 02/12/2025 Procedure Pass [facility] PERIOPERATIVE DEPT 2013 [place] [address] 02/12/2025 11:30 AM EDT Hospital Encounter [facility] PERI[facility]IVE DEPT [address] [place] [address] Beto Ansari MD [address] [place] [address] [email or web address] 02/12/2025 11:30 AM EDT Anesthesia Event [facility] PERIOPER[facility]IVE DEPT 2013 [place] [address] Mayra Mckay CNP 2013 [place] [address] 02/12/2025 11:30 AM EDT - 02/12/2025 1:49 PM EDT Surgery [facility] PERIOPER[facility]IVE DEPT 2013 [place] [address] Bteo Ansari MD 2013 [place] [address] [email or web address] ARTHROPLASTY TOTAL HIP Scheduled Procedures Name Priority Associated Diagnoses Date/Ti me ARTHROPLASTY TOTAL HIP Primary osteoarthritis of left hip 02/12/2025 11:30 AM EDT MODIFIER ARTHROPLASTY HIP GURDEEP TAPERLOC MICROPLASTY Primary osteoarthritis of left hip 02/12/2025 11:30 AM EDT documented as of this encounter Visit Diagnoses Not on filedocumented in this encounter Care Teams Collar Closer Lockstitch Relationship Specialty Start Date End Date Jw Humphrey MD [address] [place] [address] PCP - General Internal Medicine 09/27/23 10/24/24 Rita Wang, YEVGENIY [address] [place] [address] PCP - General 10/25/24 documented as of this encounter Additional Source Comments The information contained in this document represents components of the legal health record. It is not the complete legal health record.[facility]
--- OUTSIDE RECORDS SUMMARY | 2024-11-30 09:17 | XMS_ITS | Encounter Summary ---
Author Organization [facility] Address [phone] [place] [address] Care Team Providers Care [facility] Office Supervisor Name Role Phone Jw Humphrey MD Primary Care Provider +1- [phone] Jw Humphrey MD Primary Care Provider +1- [phone] Rita Wang PA-C Primary Care Provider Encounter Details Date Type Department Care Team (Latest Contact Info) Description 08/10/2019 Transcribe Orders [facility] [address] [place] [address] Anatoly White MD [address] [place] [address] [email or web address] Diagnosis unknown (Primary Dx) Social History Tobacco Use Types Packs/Day Years Used Date Smoking Tobacco: Former Cigarettes 0.5 27.9 0 06/12/1991 - 05/22/2019 Smokeless Tobacco: Former Chew Quit: 06/12/1989 Comments:rough estimate star t date Alcohol Use Standard Drinks/Week Comments Not Currently 0 (1 standard drink = 0.6 oz pur e alcohol) Sex and Gender Information Value Date Recorded Sex Assigned at Male 02/07/2020 11:18 AM EDT Gender Identity Male 02/07/2020 11:18 AM EDT Sexual Orientation Straight 02/07/2020 11 :18 AM EDT documented as of this encounter Plan of Treatment Upcoming Encounters Date Type Department Care Team (Late st Contact Info) Description 01/22/2025 8:05 AM EDT Pre-Admission Testing [facility] 2013 [place] [id number] Beto Ansari MD 2013 [place] [address] [email or web address] 02/12/2025 Procedure Pass [facility] PERIOPERATIVE DEPT 2013 [place] [address] 02/12/2025 11:30 AM EDT Hospital Encounter [facility] PERIOPER[facility] DEPT [address] [place] [address] Beto Ansari MD 2013 [place] [address] [email or web address] 02/12/2025 11:30 AM EDT Anesthesia Event [facility] PERIOPERATIVE DEPT [address] [place] [address] Mayra Mckay, MAGDIEL [address] [place] [address] [email or web address] 02/12/2025 11:30 AM EDT - 02/12/2025 1:49 PM EDT Surgery [facility] PER[facility]OPER[facility]IVE DEPT 2013 [place] [address] Beto Ansari MD [address] [place] [address] [email or web address] ARTHROPLASTY TOTAL HIP Scheduled Procedures Name Priority Associated Diagnoses Date/Ti me ARTHROPLASTY TOTAL HIP Primary osteoarthritis of left hip 02/12/2025 11:30 AM EDT MODIFIER ARTHROPLASTY HIP GURDEEP TAPERLOC MICROPLASTY Primary osteoarthritis of left hip 02/12/2025 11:30 AM EDT documented as of this encounter Results * Vancomycin, trough (08/10/2019 10:00 AM EDT) VANCOMYCIN,TROU GH 12.1 10.0 - 20.0 ug/mL [facility] Comment: Pre-dose level 10-20 ug/mL depending on disease severity/organism susceptibility. 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 Enterobacter R to ceftriaxone 06/15/2019 06/15/2019 05/27/2023 1:22 AM E DT VRE 08/16/2019 08/16/2019 12/15/2022 1:26 AM EST documented as of this encounter Care Teams [facility] Office Supervisor Relationship Specialty Start Date End Date Jw Humphrey MD PCP - General Internal Medicine 06/10/19 09/26/23 Jw Humphrey MD [address] [place] [address] PCP - General Internal Medicine 09/27/23 10/24/24 Rita Wang PA-C [address] [place] [address] PCP - General 10/25/24 documented as of this encounter Additional Source Comments The information contained in this document represents components of the legal health record. It is not the complete legal health record.[facility]
--- OUTSIDE RECORDS SUMMARY | 2024-11-30 09:17 | XMS_ITS | Encounter Summary ---
Author Organization [facility] Address [phone] [place] [address] Care Team Providers Care Curriculum Advisory Teacher Name Role Phone Jw Humphrey MD Primary Care Provider +1- [phone] Jw Humphrey MD Primary Care Provider +1- [phone] Rita Wang PA-C Primary Care Provider Encounter Details Date Type Department Care Team (Late Contact Info) Description 06/13/2019 Procedure Pass [facility] [address] [place] [phone] Social History Tobacco Use Types Packs/Day Years [...] Testing [facility] PRETEST[facility] [address] [place] [phone] Beto Ansari MD [address] [place] [address] [email or web address] 02/12/2025 Procedure Pass [facility] PERIOPERATIVE DEPT [address] [place] [address] 02/12/2025 11:30 AM EDT Hospital Encounter [facility] PERIOPERATIVE DEPT [address] [place] [address] Beto Ansari MD 2013 [place] [address] [email or web address] 02/12/2025 11:30 AM EDT Anesthesia Event [facility] PERIOPERATIVE DEPT [address] [place] [address] Mayra Mckay CNP [address] [place] [address] [email or web address] 02/12/2025 11:30 AM EDT - 02/12/2025 1:49 PM EDT Surgery [facility] PERIOPERATIVE DEPT [address] [place] [address] Beto Ansari MD [address] [place] [address] [email or web address] ARTHROPLASTY TOTAL HIP Scheduled Procedures Name Priority Associated Diagnoses Date/Ti me ARTHROPLASTY TOTAL HIP Primary osteoarthritis of left hip 02/12/2025 11:30 AM EDT MODIFIER ARTHROPLASTY HIP UGRDEEP TAPERLOC MICROPLASTY Primary osteoarthritis of left hip 02/12/2025 11:30 AM EDT documented as of this encounter Visit Diagnoses Not on filedocumented in this encounter Additional Health Concerns Infection Onset Date Last Indicated Resolved Time MDR-GN Comment:06/13/19 wound Enterobacter R to ceftriaxone 06/15/2019 06/15/2019 05/27/2023 1:22 AM E DT VRE 08/16/2019 08/16/2019 12/15/2022 1:26 AM EST documented as of this encounter Care Teams Curriculum Advisory Teacher Relationship Specialty Start Date End Date Jw Humphrey MD PCP - General Internal Medicine 06/10/19 09/26/23 Jw Humphrey MD [address] [place] [address] PCP - General Internal Medicine 09/27/23 10/24/24 Rita Wang PA-C [address] [place] [address] PCP - General 10/25/24 documented as of this encounter Additional Source Comments The information contained in this document represents components of the legal health record. It is not the complete legal health record.[facility]
--- OUTSIDE RECORDS SUMMARY | 2024-11-30 09:17 | XMS_ITS | Encounter Summary ---
Author Organization [facility] Address [phone] [place] [address] Care Team Providers Care Fermenting Cellars Supervisor Name Role Phone Jw Humphrey MD Primary Care Provider +1- [phone] Rita Wang PA-C Primary Care Provider Encounter Details Date Type Department Care Team (Late st Contact Info) Description 11/16/2023 Ancillary Orders [facility] Department of Orthopaedic Surgery, Foot & Ankle Service [address] [facility] [address] [place] [address] Beto Ansari MD 2013 [place] [id number] [email or web address] Pain (Primary Dx) Social History Tobacco Use Types [...] Description 01/22/2025 8:05 AM EDT Pre-Admission Testing [facility] PRE[facility] 2013 [place] [address] Beto Ansari MD 2013 [place] [address] [email or web address] 02/12/2025 Procedure Pass [facility] PERIOPERATIVE DEPT 2013 [place] [address] 02/12/2025 11:30 AM EDT Hospital Encounter [facility] PERIOPERATIVE DEPT [address] [place] [address] Beto Ansari MD 2013 [place] [address] [email or web address] 02/12/2025 11:30 AM EDT Anesthesia Event [facility] PERIOPERATIVE DEPT 2013 [place] [address] Mayra Mckay, MAGDIEL [address] [place] [address] 02/12/2025 11:30 AM EDT - 02/12/2025 1:49 PM EDT Surgery [facility] PERIOPERAT[facility] DEPT [address] [place] [address] Beto Ansari MD [address] [place] [address] [email or web address] ARTHROPLASTY TOTAL HIP Scheduled Procedures Name Priority Associated Diagnoses Date/Ti me ARTHROPLASTY TOTAL HIP Primary osteoarthritis of left hip 02/12/2025 11:30 AM EDT MODIFIER ARTHROPLASTY HIP GURDEEP TAPERLOC MICROPLASTY Primary osteoarthritis of left hip 02/12/2025 11:30 AM EDT documented as of this encounter Results * XR HIPS 1 VW EA BILAT PLUS PELVIS (11/16/2023 10:32 AM EST) Anatomical Region Laterality Modality Hip, Pelvis Radiographic Jenny ging 11/16/2023 10:3 9 AM EST Impressions 11/16/2023 10:41 AM EST Bilateral hip osteoarthritis, right worse than left. Right hip findings are minimally progressed since 2019. Narrative 11/16/2023 10:41 AM EST XR HIPS 1 VW EA BILAT PLUS PELVIS Referring clinician's provided indication for this examination in [facility]: Pain COMPARISON: XR HIPS 2+ VW EA BILAT PLUS PELVIS FINDINGS: Lower pelvis: No displaced fracture. Intact sacroiliac joints and pubic symphysis. Left Hip: Moderate degenerative changes, similar to prior. Right Hip: Moderate to severe degenerative changes with prominent subchondral cysts in the acetabulum, minimally progressed since 2019. Procedure Note Jose Monsalve MD - 11/16/2023 XR HIPS 1 VW EA BILAT PLUS PELVIS Referring clinician's provided indication for this examination in Epic:Pain COMPARISON: XR HIPS 2+ VW EA BILAT PLUS PELVIS FINDINGS: Lower pelvis: No displaced fracture. Intact sacroiliac joints and pubicsymphysis. Left Hip: Moderate degenerative changes, similar to prior. Right Hip: Moderate to severe degenerative changes with prominentsubchondral cysts in the acetabulum, minimally progressed since 2019. IMPRESSION: Bilateral hip osteoarthritis, right worse than left. Right hip findingsare minimally progressed since 2019. Beto Ansari MD IMG XR PELVIS documented in this encounter Visit Diagnoses Diagnosis Pain Generalized pain Pain- Primary Generalized pain Primary osteoarthritis of left hip documented in this encounter Care Teams Fermenting Cellars Supervisor Relationship Specialty Start Date End Date Jw Humphrey MD [address] [place] [address] PCP - General Internal Medicine 09/27/23 10/24/24 Rita Wang PA-C [address] [place] [address] PCP - General 10/25/24 documented as of this encounter Additional Source Comments The information contained in this document represents components of the legal health record. It is not the complete legal health record.[facility]
--- OUTSIDE RECORDS SUMMARY | 2024-11-30 09:18 | XMS_ITS | Encounter Summary ---
Author Organization [facility] Address [phone] [place] [address] Care Team Providers Care Underground Truck Operator Name Role Phone Rita Wang PA-C Primary Care Provider Encounter Details Date Type Department Care Team (Late st Contact Info) Description 11/12/2024 7:40 AM EST - 11/12/2024 11:59 PM [facility] Hospital Encounter [facility] [address] [place] [address] Bridget Root CNP 2013 [facility] [address] [place] [address] [email or web address] Discharge Disposition: Home or Self Care Social History Tobacco Use Types Packs/Day Years [...] AM EDT documented as of this encounter Medications at Time of Discharge Medication Sig Dispensed Refills Start Date End Date acetaminophen (TYLENOL) 500 MG tablet Take 2 tablets (1,000 mg total) by mouth every 8 (eight) hours as needed. 03/20/2024 amoxicillin (AMOXIL) 500 MG capsule Take 4 capsules (2,000 mg total) by mouth once as needed. Take 4 capsules one hour prior to any dental work or procedures. 12 capsule 1 04/16/2024 atorvastatin (LIPITOR) 10 MG tablet Take 10 mg by mouth daily. celecoxib (CELEBREX) 200 MG capsule Take 1 capsule (200 mg total) by mouth 2 (two) times a day as needed for pain (specific location in comments). 60 capsule 12/15/2023 doxycycline hyclate (VIBRAMYCIN) 100 MG capsule Take 100 mg by mouth daily. Takes once daily for rosacea 02/01/2023 glipiZIDE (GLUCOTROL XL) 2.5 MG 24 hr tablet Take 2.5 mg by mouth daily. 09/18/2022 hydroCHLOROthiazide (HYDRODIURIL) 25 MG tablet Take 1 tablet by mouth every morning. 12/07/2023 lamoTRIgine (LAMICTAL) 100 MG tablet Take 100 mg by mouth daily. lisinopril (PRINIVIL,ZESTRIL) 40 MG tablet Take 40 mg by mouth daily. metFORMIN (GLUCOPHAGE) 500 MG tablet Take 1,000 mg by mouth 2 (two) times a day with meals. metoprolol tartrate (LOPRESSOR) 100 MG tablet Take 100 mg by mouth daily. metoprolol tartrate (LOPRESSOR) 50 MG tablet Take 50 mg by mouth nightly at bedtime. 01/15/2024 NIFEdipine (ADALAT CC) 60 MG 24 hr tablet Take 60 mg by mouth daily. sertraline (ZOLOFT) 100 MG tablet Take 200 mg by mouth daily. SOOLANTRA 1 % APPLY IN THE MORNING TO FACE ROSACEA 2022 tadalafiL (CIALIS) 5 MG tablet TAKE 1 TABLET BY MOUTH ONCE DAY. 11/08/2022 tamsulosin (FLOMAX) 0.4 mg Cap Take 0.4 mg by mouth nightly at bedtime. testosterone cypionate (DEPO-TESTOTERONE) 200 mg/mL injection INJECT 80 MG (0.4 ML) SUBCUTANEOUSLY EVERY WEEK FOR 4 WEEKS TWO INJECTIONS FROM EACH VIAL 11/15/2022 traZODone (DESYREL) 50 MG tablet Take 25-50 mg by mouth nightly at bedtime. documented as of this encounter Plan of Treatment Upcoming Encounters Date Type Department Care Team (Late st Contact Info) Description 01/22/2025 8:05 AM EDT Pre-Admission Testing [facility] [address] [place] [address] Beto Ansari MD 2013 [place] [address] [email or web address] 02/12/2025 Procedure Pass [facility] PERIOPERATIVE DEPT [address] [place] [address] 02/12/2025 11:30 AM EDT Hospital Encounter [facility] PERIOPER[facility]IVE DEPT [address] [place] [address] Beto Ansari MD 2013 [place] [address] [email or web address] 02/12/2025 11:30 AM EDT Anesthesia Event [facility] PERIOPER[facility]IVE DEPT [address] [place] [address] Mayra Mckay, MAGDIEL [address] [place] [address] 02/12/2025 11:30 AM EDT - 02/12/2025 1:49 PM EDT Surgery [facility] PERIOPERATIVE DEPT [address] [place] [address] Beto Ansari MD 2013 [place] [address] [email or web address] ARTHROPLASTY TOTAL HIP Scheduled Procedures [...] complication, without long-term current use of insulin documented in this encounter Results * (ABNORMAL) Hemoglobin A1c (11/12/2024 7:52 AM EST) HEMOGLOBIN A1C 8.2(H) 4.3 - 5.8 % [facility] Blood 11/12/2024 7:52 AM EST 11/12/2024 7:56 AM EST Bridget Root LOAN AND CREDIT MANAGER LAB BLOOD ORDERABLE S [facility] [address] [place] [address] documented in this encounter Visit Diagnoses Diagnosis 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 It is not the complete legal health record.[facility]
--- OUTSIDE RECORDS SUMMARY | 2024-11-30 09:20 | XMS_ITS | Encounter Summary ---
Author Organization [facility] Address [address] [place] [address] Care Team Providers Care Field Insurance Sales Manager Name Role Phone Rita Wang Primary Care Provider + Reason for Visit * Reason Comments GERD Encounter Details Date Type Department Care Team (Latest Contact Info) Description 11/07/2024 9:00 AM EST Office Visit Gastroenterology - [address] [facility] [address] [place] [phone] Laureano Farmer MD [address] [facility] [address] [address] Gastroesophageal reflux disease without esophagitis (Primary Dx) Social History Tobacco Use Types Packs/Day Years Used Date Smoking Tobacco: Former Smokeless Tobacco: Never Alcohol Use Standard Drinks/Week Comments Never 0 (1 standard drink = 0.6 oz pur e alcohol) Housing Instability Answer Date Recorde d Are you worried that in the next 2 months you may not have stable housing? Patient declined 11/06/2024 Food Access & Nutrition Answer Date Rec orded Do you have access to a vari ety of food including fruits and vegetables? Patient declined 11/06/2024 Health Literacy Answer Date Recorded How often do you need to hav e someone help you when you read instructions, pamphlets, or other written material from your doctor or pharmacy? Patient declined 11/06/2024 Caregiver: How often do you need to have someone help you when you read instructions, pamphlets, or other written material from your doctor or pharmacy? Not on file 025 Financial Risk Answer Date Recorded How hard is it for you to pa y for the very basics like food, housing, medical care, and air conditioning / heating? Patient declined 11/06/2024 Transportation Answer Date Recorded Has the lack of transportati on kept you from meetings, work, or from getting things needed for daily living? Patient declined 11/06/2024 Has the lack of transportati on kept you from medical appointments or from getting medications? Patient declined 11/06/2024 Social Isolation Answer Date Recorded How often do you feel lonely or isolated from those around you? Patient declined 11/06/2024 Food Risk Answer Date Recorded Within the past 12 months we worried whether our food would run out before we got money to buy more. Patient declined 025 Within the past 12 months th e food we bought just didn't last and we didn't have money to get more. Patient declined 04/2025 Dependent Care Answer Date Recorded Do you need help finding or paying for care for your loved ones. For example, children's zoo caretaker or elderly care for an older adult? Patient declined 11/06/2024 Education Answer Date Recorded Do you think completing more education or training, like finishing a GED, going to college, or learning a trade, would be helpful for you? Patient declined 11/06/2024 Employment and Income Answer Date Recor ded During the last four weeks, have you been actively looking for work? Patient declined 11/06/2024 Living Situation Answer Date Recorded What is your living situation? 0 11/06/2024 Sex and Gender Information Value Date Recorded Sex Assigned at Not on file Gender Identity Not on file Sexual Orientation Not on file Job Start Date Occupation Industry Not on file Not on file Not on file documented as of this encounter Last Filed Vital Signs Vital Sign Reading Time Taken Comments Blood Pressure - - Pulse - - Temperature - - Respiratory Rate - - Oxygen Saturation - - Inhaled Oxygen Concentration - - Weight 116 kg (255 lb) 11/07/2024 8:55 AM EST Height 172.7 cm (5' 8 ) 11/07/2024 8:55 AM EST Body Mass Index 38.77 11/07/2024 8:55 AM EST documented in this encounter Progress Notes * Laureano Farmer MD - 11/07/2024 9:00 AM EST PROGRESS NOTE Subjective Patient ID: Josué Whitney is a 59 y.o. male. Chief Complaint Patient presents with GERD Colonoscopy screening: No family history of crc or polyps. Colon in 2019. Prep was good, some adherent material in right colon irrigated and suctioned away. Diverticulosis. No alarm features. When eats starts to cough. Some GERD. No dysphagia. Reflux after meals. Pantoprazole 20mg. Present for years. No family history of esophageal disorders. No gi bleeding. Weight is stable. GERD He reports no chest pain. Social History Socioeconomic History Marital status: Spouse name: Not on file Number of children: Not on file Years of education: Not on file Highest education level: Not on file Occupational History Not on file Tobacco Use Smoking status: Former Smokeless tobacco: Never Substance and Sexual Activity Alcohol use: Never Drug use: Never Sexual activity: Not on file Other Topics Concern Not on file Social History Narrative 1 son, 1 daughter Past Medical History: Diagnosis Date Anxiety and depression 11/04/2016 DX:Anxiety and depression Benign enlargement of prostate 09/07/2016 DX:Benign enlargement of prostate Bilateral hip pain DX:Bilateral hip pain; COMMENT: right worse than left, x-rays 11/30/18= right > left OA Cellulitis and abscess of foot 07/17/2019 DX:Cellulitis and abscess of foot; COMMENT: R foot, hospitalized at [facility] 05/22/2019, transferred [facility] 06/12/2019 for further I+D procedures. Chronic low back pain DX:Chronic low back pain; COMMENT: injection done [facility] 2018- MRI disc hernitation lumbar Erectile dysfunction 10/13/2018 DX:Erectile dysfunction Esophageal reflux 09/07/2016 DX:Esophageal reflux History of acute respiratory failure 07/17/2019 DX:History of acute respiratory failure; COMMENT: During 05/2019 hospitalization for R foot cellulitis. ICU intubated 06/01-06/10/19 Hyperlipidemia 06/16/2018 DX:Hyperlipidemia Hypertension 06/16/2018 DX:Hypertension Hypogonadism, male 10/13/2018 DX:Hypogonadism, male; COMMENT: urology Dr. Moraes Obesity (BMI 30.0-34.9) DX:Obesity (BMI 30.0-34.9) Osteoarthritis 07/17/2019 DX:Osteoarthritis; COMMENT: Hips and ankles, s/p cortisone inj to hips. Peripheral neuropathy 07/17/2019 DX:Peripheral neuropathy Primary insomnia 09/13/2018 DX:Primary insomnia Right ankle pain DX:Right ankle pain; COMMENT: OA- f/u [facility] Dr. 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 Garcia at [facility] ANKLE SURGERY Right 06/13/2019 PROCEDURE: HISTORICAL ANKLE SURGERY; COMMENT: further debridement of nonviable tissue, with wound VAC placed at [facility] Dr. Blakely ANKLE SURGERY Right 06/18/2019 PROCEDURE: HISTORICAL ANKLE SURGERY; COMMENT: wound debridement and Integra placement at [facility] Dr. Blakely ANKLE SURGERY Right 07/27/2019 PROCEDURE: HISTORICAL ANKLE SURGERY; COMMENT: removal integra, washout and debridment foot wound and split thickness graft right thigh - developed cellulitis (IV vancomycin and ceftriaxone)- PICC placed 08/06/19- d/c home 08/08/19 HIP ARTHROPLASTY Right 03/19/2024 PROCEDURE: HISTORICAL HIP REPLACEMENT; COMMENT: Dr. Renee at [facility] actually her daughter Review of Systems Constitutional: Negative. Respiratory: Negative for shortness of breath. Cardiovascular: Negative for chest pain. Gastrointestinal: Negative. Genitourinary: Negative for difficulty urinating. Skin: Negative for color change. Psychiatric/Behavioral: Negative for agitation and confusion. Objective Physical Exam Vitals reviewed. Constitutional: General: He is not in acute distress. Appearance: Normal appearance. He is not ill-appearing, toxic-appearing or diaphoretic. HENT: Head: Normocephalic. Nose: Nose normal. Mouth/Throat: Mouth: Mucous membranes are moist. Pharynx: Oropharynx is clear. Eyes: Extraocular Movements: Extraocular movements intact. Cardiovascular: Rate and Rhythm: Normal rate. Pulses: Normal pulses. Pulmonary: Effort: Pulmonary effort is normal. Abdominal: General: There is no distension. Palpations: Abdomen is soft. There is no mass. Tenderness: There is no abdominal tenderness. There is no right CVA tenderness, left CVA tenderness, guarding or rebound. Hernia: No hernia is present. Musculoskeletal: General: Normal range of motion. Cervical back: Neck supple. Skin: General: Skin is warm. Neurological: General: No focal deficit present. Mental Status: He is alert and oriented to person, place, and time. Psychiatric: Mood and Affect: Mood normal. Behavior: Behavior normal. Assessment/Plan GERD. He is on pantoprazole which is excellent. Basically we discussed dietary and other nonpharmacologic treatments including not eating for 3 hours before he goes to sleep not lying down after eating dietary measures etc. And outs were given. He asked about weight loss and I did share that certainly or at least in my opinion weight loss might help his reflux tremendously. Has had good luck previously on the keto diet. Given borderline blood sugars I would be totally good with this. Shared with him I am not a diet doctor, but the keto diet was the only 1 that personally worked for me. I did book him for an upper endoscopy just to assess and rule out Fraire's. Coughing when he swallows. Depending on the results of the upper endoscopy may need to investigate this further. Colon cancer screening. Did have a colonoscopy in 2020. This was discussed with him. There is no family history of first-degree relatives with colon cancer or polyps. His colonoscopy in 2020 his prepwas generally good just a thin coating of material in the proximal colon which was largely irrigated away. I think is reasonable to hold off at this point given no symptoms. Oertli we can revisit this issue from time to time. Last Recorded Vitals: Height 1.727 m (68 ), weight 116 kg (255 lb). Labs: No results found for: WBC , HGB , HCT , MCV , PLT No results found for: NA , K , CL , CO2 , BUN , CREATININE , CALCIUM , PROT , BILITOT , ALKPHOS , ALT , AST , GLUCOSE No results found for: WOUNDCX , BLOODCX , URINECX , CSFCX , AFBCX , MRSA Pertinent new radiology results/studies: MR PELVIS W WO [facility] Diagnostic Imaging Department [address] [place] [id number] Patient: JOSUÉ WHITNEY /Age/Sex: 1965 - 57 - M Unit#: [id number] Location/Status: SPDIMRI/REG CLI Mnemonic/Ordering Site: PELVISWWO/SPMAIN Ordering Physician: QUYEN HESS MD MR Pelvis W WO - 02/22/23 - MRI of the pelvis. February 22, 2023 at 1513 hours Clinical History: Retrograde ejaculation. Technique: Multiplanar multiecho sequences through the pelvis are obtained without and with intravenous gadolinium. Contrast Dose: 20 mL of DOTAREM. Comparison: No prior imaging studies comparison at the time of reporting. Findings: A few nodular foci are seen in the transitional zone of the prostate, possibly early changes of prostatic hyperplasia. The prostate and seminal vesicles are otherwise unremarkable. No prostatomegaly. There is dilated caliber of the proximal prostatic urethra (maximum calibre of 5.7 mm) with patulous bladder neck. The urinary bladder is well distended with mild diffuse wall thickening. No free fluid is noted. No evidence of significant lymphadenopathy. Degenerative changes are seen in the right hip joint with reduced superior joint space and a few subchondral cysts along the acetabulum. Remaining visualised osseous structures are grossly unremarkable. Impression: 1. A few nodular foci in the transitional zone of the prostate, possibly early changes of prostatic hyperplasia. No prostatomegaly. 2. Dilated caliber of the proximal prostatic urethra. Possibilities to consider include any prior history of prostatic surgery versus urethral stricture. Further workup is suggested. 3. Mild diffuse urinary bladder wall thickening, which may be related to chronic cystitis versus bladder outlet obstruction. Dictating Physician: ZANE BYRNE MD Electronically Signed by: ZANE BYRNE MD Dic Date/Time: 02/25/23 0959 Sign date/Time: 02/25/23958 MEDICATIONS: Current Hospital Medications: Current Outpatient Medications: albuterol HFA (ProAir HFA) 90 mcg/actuation inhaler, Inhale 2 puffs by mouth every 4 (four) hours if needed for wheezing or shortness of breath., Disp: , Rfl: aspirin 81 mg EC tablet, Take 1 tablet (81 mg total) by mouth 1 (one) time each day., Disp: , Rfl: atorvastatin (LIPITOR) 10 mg tablet, TAKE 1 TABLET BY MOUTH EVERY DAY, Disp: 90 tablet, Rfl: 3 cholecalciferol (VITAMIN D-3) 50 mcg (2,000 unit) capsule, Take 1 capsule (2,000 Units total) by mouth 1 (one) time each day., Disp: , Rfl: doxycycline (VIBRAMYCIN) 100 mg capsule, Take 1 capsule (100 mg total) by mouth 2 (two) times a day., Disp: , Rfl: glipiZIDE (GLUCOTROL XL) 2.5 mg 24 hr tablet, Take 1 tablet (2.5 mg total) by mouth 1 (one) time each day., Disp: , Rfl: hydroCHLOROthiazide (HYDRODIURIL) 25 mg tablet, Take 1 tablet (25 mg total) by mouth 1 (one) time each day., Disp: , Rfl: lamoTRIgine (LaMICtal) 100 mg tablet, TAKE 1 TABLET BY MOUTH EVERY DAY, Disp: 90 tablet, Rfl: 1 lisinopril (PRINIVIL,ZESTRIL) 40 mg tablet, TAKE 1 TABLET BY MOUTH EVERY DAY, Disp: 90 tablet, Rfl:3 metFORMIN (GLUCOPHAGE) 500 mg tablet, TAKE 2 TABS BY MOUTH 2 TIMES DAILY (WITH MEALS)., Disp: 360 tablet, Rfl: 3 metoprolol tartrate (LOPRESSOR) 100 mg tablet, Take 1 tablet (100 mg total) by mouth 1 (one) time each day in the morning., Disp: , Rfl: metoprolol tartrate (LOPRESSOR) 50 mg tablet, Take 1 tablet (50 mg total) by mouth 1 (one) time each day in the morning. SEPARATE FROM METOPROLOL 100 MG TAB AT NIGHT., Disp: , Rfl: pantoprazole (PROTONIX) 20 mg EC tablet, TAKE 1 TABLET BY MOUTH EVERY DAY, Disp: 90 tablet, Rfl: 1 sertraline (ZOLOFT) 100 mg tablet, TAKE 2 TABLETS BY MOUTH EVERY DAY, Disp: 180 tablet, Rfl: 1 tadalafiL (CIALIS) 5 mg tablet, Take 1 tablet (5 mg total) by mouth 1 (one) time each day., Disp: ,Rfl: tamsulosin (FLOMAX) 0.4 mg 24 hr capsule, Take 1 capsule (0.4 mg total) by mouth 1 (one) time each day., Disp: , Rfl: testosterone cypionate (DEPO-TESTOTERONE) 200 mg/mL injection, Inject 4 mL (800 mg total) into the shoulder, thigh, or buttocks every 14 (fourteen) days., Disp: , Rfl: traZODone (DESYREL) 100 mg tablet, TAKE 1/2 TO 1 TABLET nightly, Disp: 90 tablet, Rfl: 3 fluticasone propionate (FLONASE) 50 mcg/actuation nasal spray, Administer 2 sprays into each nostril 1 (one) time each day if needed. (Patient not taking: Reported on 11/07/2024), Disp: , Rfl: gabapentin (NEURONTIN) 300 mg capsule, Take 1 capsule (300 mg total) by mouth 2 (two) times a day. (Patient not taking: Reported on 11/07/2024), Disp: , Rfl: LORazepam (ATIVAN) 0.5 mg tablet, Take 1 tablet (0.5 mg total) by mouth 3 (three) times a day if needed for anxiety. for up to 7 days Max Daily Amount: 1.5 mg (Patient not taking: Reported on 11/07/2024), Disp: , Rfl: meloxicam (MOBIC) 7.5 mg tablet, Take 1 tablet (7.5 mg total) by mouth 2 (two) times a day if needed for mild pain. for up to 7 days. Take with food (Patient not taking: Reported on 11/07/2024), Disp: , Rfl: metroNIDAZOLE (METROGEL) 0.75 % gel, Apply topically 2 (two) times a day. Apply and rub a thin filmmorning and evening, to entire affected, Disp: , Rfl: NIFEdipine CC (ADALAT CC) 60 mg 24 hr tablet, TAKE 1 TABLET BY MOUTH EVERY DAY (Patient not taking:Reported on 11/07/2024), Disp: 90 tablet, Rfl: 3 terazosin (HYTRIN) 10 mg capsule, Take 1 capsule (10 mg total) by mouth., Disp: , Rfl: Home Medications: He has a current medication list which includes the following long-term medication(s): albuterol hfa, atorvastatin, glipizide, hydrochlorothiazide, lamotrigine, lisinopril, metformin, metoprolol tartrate, metoprolol tartrate, sertraline, tadalafil, trazodone, fluticasone propionate, gabapentin, lorazepam, nifedipine cc, and terazosin. 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) Type 2 diabetes mellitus with neurological manifestation ([facility]) Vitamin D deficiency Laureano Farmer MD 9:06 AM EST Screening for colon cancer. Patient did undergo a colonoscopy in 07/20 which was negative except forsome diverticulosis. From PCP: HPI: Noticed a rash around the eyelids for about 4 weeks ,went to urgent care, was put on prednisone with some improvement seen, although the rash is still present he says. Possibly came in contact with some plants like poison gumaro when he was doing yard work before it started. ROS: Constitutional: No fever, chills or night sweats. GI: See HPI. PAST MEDICAL HISTORY: Patient Active Problem List Diagnosis Date Noted Rosacea [L71.9] 02/01/2023 Obesity (BMI 30.0-34.9) [E66.811] Cellulitis and abscess of foot [L03.119, L02.619] 07/17/2019 R foot, hospitalized at [facility] 05/22/2019, transferred to [facility] 06/12/2019 for further I+D procedures. History of acute respiratory failure [Z87.09] 07/17/2019 During 05/2019 hospitalization for R foot cellulitis. ICU intubated 06/01-06/10/19 Peripheral neuropathy [G62.9] 07/17/2019 Osteoarthritis [M19.90] 07/17/2019 Hips and ankles, s/p cortisone inj to hips. Type 2 diabetes mellitus with neurological manifestation (HCC) [E11.49] 07/17/2019 Tobacco use [Z72.0] 07/17/2019 Right ankle pain [M25.571] OA- f/u [facility] Dr. Escalante Type 2 diabetes mellitus with microalbuminuria, without long-term current use of insulin (HCC) [E11.29, R80.9] Chronic low back pain [M54.50, G89.29] injection done [facility] 2018- MRI disc hernitation lumbar Bilateral hip pain [M25.551, M25.552] right worse than left, x-rays 11/30/18= right > left OA . S/p injection right hip 12/22/18 via arthrogrm- ortho Dr. 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 Garcia at [facility] HISTORICAL ANKLE SURGERY Right 06/13/2019 further debridement of nonviable tissue, with wound VAC placed at [facility] Dr. Blakely HISTORICAL ANKLE SURGERY Right 06/18/2019 wound debridement and Integra placement at [facility] Dr. Blakely HISTORICAL ANKLE SURGERY Right 07/27/2019 removal integra, washout and debridment foot wound and split thickness graft right thigh - developed cellulitis (IV vancomycin and ceftriaxone)- PICC placed 08/06/19- d/c home 08/08/19 HISTORICAL HIP REPLACEMENT Right 03/19/2024 Dr. Renee at [facility] actually her daughter SOCIAL HISTORY: Social History Tobacco Use Smoking status: Former Smokeless tobacco: Never Tobacco comments: quit 05/22/19 when hospitalized Substance Use Topics Alcohol use: Never History Last Reviewed by Rita Wang PA-C on 03/13/2024 at 2:51 PM Sections Reviewed Tobacco FAMILY HISTORY: No family history on file. MEDICATIONS DISCONTINUED/REORDERED: There are no discontinued medications. ACTIVE MEDICATIONS: Current Outpatient Medications Medication Sig Dispense Refill glipiZIDE (GLUCOTROL) 2.5 MG 24 hr tablet TAKE 1 TABLET BY MOUTH EVERY DAY 90 Tablet 1 meloxicam (MOBIC) 7.5 MG tablet Take 1 Tablet by mouth 2 times daily as needed for Pain for up to 7days. Take with food. 14 Tablet 0 lamotrigine (LAMICTAL) 100 MG tablet TAKE 1 TABLET BY MOUTH EVERY DAY 90 Tablet 1 metoprolol (LOPRESSOR) 50 MG tablet TAKE 1 TABLET BY MOUTH EVERY MORNING. SEPARATE FROM METOPROLOL 100 MG TAB AT NIGHT. 90 Tablet 3 sertraline (ZOLOFT) 100 MG tablet TAKE 2 TABLETS BY MOUTH EVERY DAY 180 Tablet 1 metoprolol (LOPRESSOR) 100 MG tablet TAKE 1 TABLET BY MOUTH EVERY DAY IN THE MORNING 90 Tablet 3 hydrochlorothiazide (HYDRODIURIL) 25 MG tablet TAKE 1 TABLET BY MOUTH EVERY DAY 90 Tablet 3 doxycycline (VIBRAMYCIN) 100 MG capsule Take 1 Capsule by mouth 2 times daily. 180 Capsule 1 trazodone (DESYREL) 100 MG tablet TAKE 1/2 TO 1 TABLET BY MOUTH AT BEDTIME 90 Tablet 1 NIFEdipine (ADALAT CC) 60 MG 24 hr tablet TAKE 1 TABLET BY MOUTH EVERY DAY 90 Tablet 3 metformin (GLUCOPHAGE) 500 MG tablet TAKE 2 TABS BY MOUTH 2 TIMES DAILY (WITH MEALS). 360 Tablet 3 atorvastatin (LIPITOR) 10 MG tablet TAKE 1 TABLET BY MOUTH EVERY DAY 90 Tablet 3 pantoprazole (PROTONIX) 20 MG tablet TAKE 1 TABLET BY MOUTH EVERY DAY 90 Tablet 1 lisinopril (PRINIVIL,ZESTRIL) 40 MG tablet TAKE 1 TABLET BY MOUTH EVERY DAY 90 Tablet 3 gabapentin (NEURONTIN) 300 MG capsule Take 1 Capsule by mouth 2 times daily. Testosterone Cypionate 200 MG/ML Solution INJECT (0.4 ML) SUBCUTANEOUSLY EVERY WEEK FOR 4 WEEKS TWOINJECTIONS FROM EACH VIAL tadalafil (CIALIS) 5 MG tablet TAKE ONE TABLET BY MOUTH EVERY DAY DIRECTED terazosin (HYTRIN) 10 MG capsule metronidazole (METROGEL) 0.75 % gel Apply and rub a thin film twice daily, morning and evening, to entire affected 45 g 0 PROAIR HFA 108 (90 Base) MCG/ACT Aero Soln Inhale 2 Puffs into the lungs 4 times daily as needed for Cough or Wheezing. 1 Inhaler 0 fluticasone (FLONASE) 50 MCG/ACT nasal spray 2 sprays each nostril daily as needed. 1 Bottle 0 tamsulosin (FLOMAX) 0.4 MG 24 hr capsule Take 0.4 mg by mouth daily. PER UROLOGY lorazepam (ATIVAN) 0.5 MG tablet Take 1 Tab by mouth 3 times daily as needed for Anxiety (anxiety) for up to 7 days. 21 tablet 0 aspirin 81 MG tablet Take 81 mg by mouth daily. Cholecalciferol (VITAMIN D3) 2000 UNITS Cap Take 2,000 Units by mouth daily. No current facility-administered medications for this visit. ALLERGIES: Allergies Allergen Reactions No Known Drug Allergies documented in this encounter Plan of Treatment Upcoming Encounters Date Type Department Care Team (Late st Contact Info) Description 12/05/2024 10:00 AM EST Hospital Encounter [facility] Endoscopy [address] [place] [phone] Laureano Farmer MD 299 [facility] [address] [place] [address] 05/13/2025 2:00 PM EDT Office Visit Internal Medicine - [place] 175 [facility] [address] [place] [phone] Rita Wang PA 175 [facility] [address] [place] [address] documented as of this encounter Visit Diagnoses Diagnosis Gastroesophageal reflux disease without esophagitis- Primary Esophageal reflux documented in this encounter Additional Health Concerns Assessment Noted Time PHQ-9 Depression Total Score: 0 11/06/19 25 12:32 PM EST documented as of this encounter Care Teams Field Insurance Sales Manager Relationship Specialty Start Date End Date Rita Wang PA [address] [place] [address] PCP - General Internal Medicine 08/18/20 documented as of this encounter
--- OUTSIDE RECORDS SUMMARY | 2024-11-30 09:20 | XMS_ITS | Encounter Summary ---
Author Organization [facility] Address [phone] [place] [address] Care Team Providers Care Automobile Mechanic Radiator Name Role Phone Jw Humhprey MD Primary Care Provider +1- [phone] Rita Wang PA-C Primary Care Provider Encounter Details Date Type Department Care Team (Late st Contact Info) Description 03/30/2024 Telephone [facility] Department of Orthopaedic Surgery, Arthroplasty Service [address] [place] [address] Beto Ansari MD [address] [place] [address] [email or web address] Social History Tobacco Use Types Packs/Day [...] 8:05 AM EDT Pre-Admission Testing [facility] PRETESTING [address] [place] [address] Beto Ansari MD [address] [place] [address] [email or web address] 02/12/2025 Procedure Pass [facility] PERIOPERATIVE DEPT [address] [place] [address] 02/12/2025 11:30 AM EDT Hospital Encounter [facility] PERIOPERATIVE DEPT [address] [place] [address] Beto Ansari MD [address] [place] [address] [email or web address] 02/12/2025 11:30 AM EDT Anesthesia Event [facility] PERIOPERATIVE DEPT [address] [place] [address] Mayra Mckay CNP [address] [place] [address] 02/12/2025 11:30 AM EDT - 02/12/2025 1:49 PM EDT Surgery [facility] PERIOPERATIVE DEPT [address] [place] [address] Beto Ansari MD [address] [place] [address] [email or web address] ARTHROPLASTY TOTAL HIP Scheduled Procedures Name Priority Associated Diagnoses Date/Ti me ARTHROPLASTY TOTAL HIP Primary osteoarthritis of left hip 02/12/2025 11:30 AM EDT MODIFIER ARTHROPLASTY HIP GURDEEP TAPERLOC MICROPLASTY Primary osteoarthritis of left hip 02/12/2025 11:30 AM EDT documented as of this encounter Visit Diagnoses Not on filedocumented in this encounter Care Teams Automobile Mechanic Radiator Relationship Specialty Start Date End Date Jw Humphrey MD [address] [place] [address] PCP - General Internal Medicine 09/27/23 10/24/24 Rita Wang, YEVGENIY [address] [place] [id number] PCP - General 10/25/24 documented as of this encounter Additional Source Comments The information contained in this document represents components of the legal health record. It is not the complete legal health record.[facility]
--- OUTSIDE RECORDS SUMMARY | 2024-11-30 09:20 | XMS_ITS | Clinical Summary ---
Author Organization [facility] [address] [facility] Address [address] [place] [address] Phone Care Team Providers Care Dry Cell Sealer Name Role Phone Rita Wang Primary Care Provider + Allergies Active Allergy Reactions Criticality Noted Date Comments Sulfamethoxazole-Trimethop rim Diarrhea,Nausea And Vomiting Medium 06/23/2019 Medications Medication Sig Dispensed Refills Start Date End Date Status aspirin 81 mg EC tablet Take 1 tablet (81 mg total) by mouth 1 (one) time each day. 02/25/2015 Active cholecalciferol (VITAMIN D-3) 50 mcg (2,000 unit) capsule Take 1 capsule (2,000 Units total) by mouth 1 (one) time each day. 03/17/2018 Active doxycycline (VIBRAMYCIN) 100 mg capsule Take 1 capsule (100 mg total) by mouth 2 (two) times a day. 03/13/2024 Active glipiZIDE (GLUCOTROL XL) 2.5 mg 24 hr tablet Take 1 tablet (2.5 mg total) by mouth 1 (one) time each day. 06/15/2023 Active hydroCHLOROthiazid e (HYDRODIURIL) 25 mg tablet Take 1 tablet (25 mg total) by mouth 1 (one) time each day. 03/13/2024 Active metoprolol tartrate (LOPRESSOR) 100 mg tablet Take 1 tablet (100 mg total) by mouth 1 (one) time each day in the morning. 03/13/2024 Active metoprolol tartrate (LOPRESSOR) 50 mg tablet Take 1 tablet (50 mg total) by mouth 1 (one) time each day in the morning. SEPARATE FROM METOPROLOL 100 MG TAB AT NIGHT. 04/16/2024 Active metroNIDAZOLE (METROGEL) 0.75 % gel Apply topically 2 (two) times a day. Apply and rub a thin film morning and evening, to entire affected 12/15/2020 Active albuterol HFA (ProAir HFA) 90 mcg/actuation inhaler Inhale 2 puffs by mouth every 4 (four) hours if needed for wheezing or shortness of breath. 08/14/2020 Active tadalafiL (CIALIS) 5 mg tablet Take 1 tablet (5 mg total) by mouth 1 (one) time each day. 07/27/2023 Active tamsulosin (FLOMAX) 0.4 mg 24 hr capsule Take 1 capsule (0.4 mg total) by mouth 1 (one) time each day. 04/03/2019 Active terazosin (HYTRIN) 10 mg capsule Take 1 capsule (10 mg total) by mouth. Active testosterone cypionate (DEPO-TESTOTERONE) 200 mg/mL injection Inject 4 mL (800 mg total) into the shoulder, thigh, or buttocks every 14 (fourteen) days. 08/11/2023 Active pantoprazole (PROTONIX) 20 mg EC tabletIndications: Gastro-esophageal reflux disease without esophagitis TAKE 1 TABLET BY MOUTH EVERY DAY 90 tablet 1 09/11/2024 Active sertraline (ZOLOFT) 100 mg tabletIndications: Anxiety disorder, unspecified TAKE 2 TABLETS BY MOUTH EVERY DAY 180 tablet 1 09/11/2024 Active atorvastatin (LIPITOR) 10 mg tablet TAKE 1 TABLET BY MOUTH EVERY DAY 90 tablet 3 10/23/2024 Active metFORMIN (GLUCOPHAGE) 500 mg tablet TAKE 2 TABS BY MOUTH 2 TIMES DAILY (WITH MEALS). 360 tablet 3 10/23/2024 Active NIFEdipine CC (ADALAT CC) 60 mg 24 hr tabletIndications: Essential (primary) hypertension TAKE 1 TABLET BY MOUTH EVERY DAY 90 tablet 3 10/23/2024 Active Additional Information Patient not taking.Reported on 11/07/2024 lisinopril (PRINIVIL,ZESTRIL) 40 mg tabletIndications: Essential (primary) hypertension TAKE 1 TABLET BY MOUTH EVERY DAY 90 tablet 3 2024 Active lamoTRIgine (LaMICtal) 100 mg tablet TAKE 1 TABLET BY MOUTH EVERY DAY 90 tablet 1 2024 Active traZODone (DESYREL) 100 mg tablet TAKE 1/2 TO 1 TABLET nightly 90 tablet 3 2024 Active semaglutide (OZEMPIC) 0.25 mg or 0.5 mg (2 mg/3 mL) injection penIndications:Typ e 2 diabetes mellitus with microalbuminuria, without long-term current use of insulin ([facility]) Inject 0.25 mg under the skin every 7 (seven) days. 2 mL 11/13/2024 Active fluticasone propionate (FLONASE) 50 mcg/actuation nasal spray Administer 2 sprays into each nostril 1 (one) time each day if needed. 01/14/2020 5 Discontinue d(Therapy completed) gabapentin (NEURONTIN) 300 mg capsule Take 1 capsule (300 mg total) by mouth 2 (two) times a day. 08/17/2023 5 Discontinue d(Therapy completed) LORazepam (ATIVAN) 0.5 mg tablet Take 1 tablet (0.5 mg total) by mouth 3 (three) times a day if needed for anxiety. for up to 7 days Max Daily Amount: 1.5 mg 2018 Discontinue d(Therapy completed) meloxicam (MOBIC) 7.5 mg tablet Take 1 tablet (7.5 mg total) by mouth 2 (two) times a day if needed for mild pain. for up to 7 days. Take with food 05/18/2024 Discontinue d(Therapy completed) Active Problems Problem Noted Date Diagnosed Date Bilateral hip pain 08/04/2024 Overview (08/04/2024): right worse than left, x-rays 11/30/18= right > left OA . S/p injection right hip 12/22/18 via arthrogrm- ortho Dr. Beltre Chronic low back pain 08/04/2024 Overview (08/04/2024): injection done [facility] 2018- MRI disc hernitation lumbar Obesity (BMI 30.0-34.9) 08/04/2024 Right ankle pain 08/04/2024 Overview (08/04/2024): OA- f/u [facility] Dr. Escalante Type 2 diabetes mellitus wit h microalbuminuria, without long-term current use of insulin 08/04/2024 Vitamin D deficiency 08/04/2024 Rosacea 02/01/2023 Cellulitis and abscess of foot 07/17/2019 Overview (08/04/2024): R foot, hospitalized at [facility] 05/22/2019, transferred to [facility] 06/12/2019 for further I+D procedures. Osteoarthritis 07/17/2019 Overview (08/04/2024): Hips and ankles, s/p cortisone inj to hips. 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 Back pain of lumbar region with sciatica 018 Anxiety and depression 11/04/2016 Benign enlargement of prostate 09/07/2016 Esophageal reflux 09/07/2016 Encounters Date Type Department Care Team Description 11/13/2024 4:00 PM EST Office Visit Internal Medicine - [place] [address] [facility] [address] [place] [address] Rita Wang PA Type 2 diabetes mellitus with microalbuminuria, without long-term current use of insulin ([facility]) (Primary Dx); Primary hypertension; Pure hypercholesterolemia; Anxiety and depression; Insomnia, unspecified type; Obesity (BMI 30.0-34.9) 11/07/2024 9:00 AM EST Office Visit Gastroenterology - 299 [facility] 299 [facility] [address] [place] [address] Laureano Farmer MD Gastroesophageal reflux disease without esophagitis (Primary Dx) from Last 3 Months Immunizations Name Administration Dates Next Due Influenza Quadravalent, MDCK , 0.5ml, preservative free (Flucelvax) 6mo and older 08/14/2020 Influenza trivalent, 0.5mL, preservative free (Fluarix; FluLaval; Fluzone) ages 6mo and older (Afluria) 3 years and older 09/19/2014 Influenza, Unspecified 08/01/2019 Pneumococcal conjugate 13 va lent (Prevnar 13, PCV13) 2mo and older 08/14/2020 Pneumococcal polysaccharide 23 valent (Pneumovax 23) 2yo and older 08/01/2019 Surgical History Surgery Date Site/Laterality Comments ANKLE SURGERY 05/26/2019 Right PROCEDURE: HISTORICAL ANKLE SURGERY; COMMENT: I & D and synovectomies Dr. Garcia at [facility] ANKLE SURGERY 06/13/2019 Right PROCEDURE: HISTORICAL ANKLE SURGERY; COMMENT: further debridement of nonviable tissue, with wound VAC placed at [facility] Dr. Blakely ANKLE SURGERY 06/18/2019 Right PROCEDURE: HISTORICAL ANKLE SURGERY; COMMENT: wound debridement and Integra placement at [facility] Dr. Blakely ANKLE SURGERY 07/27/2019 Right PROCEDURE: HISTORICAL ANKLE SURGERY; COMMENT: removal integra, washout and debridment foot wound and split thickness graft right thigh - developed cellulitis (IV vancomycin and ceftriaxone)- PICC placed 08/06/19- d/c home 08/08/19 HIP ARTHROPLASTY 03/19/2024 Right PROCEDURE: HISTORICAL HIP REPLACEMENT; COMMENT: Dr. Renee at [facility] actually her daughter Medical History Medical History Date Comments Erectile dysfunction 10/13/2018 DX:Erectile dysfunction Benign enlargement of prostate 09/07/2016 D X:Benign enlargement of prostate Esophageal reflux 09/07/2016 DX:Esophageal reflux Hyperlipidemia 06/16/2018 DX:Hyperlipidemi a Hypertension 06/16/2018 DX:Hypertension Hypogonadism, male 10/13/2018 DX:Hypogonadi sm, male; COMMENT: urology Dr. 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 Escalante Chronic low back pain DX:Chronic low back pain; COMMENT: injection done [facility] 2018- MRI disc hernitation lumbar Anxiety and depression 11/04/2016 DX:Anxiet y and depression Bilateral hip pain DX:Bilateral hip pain; COMMENT: right worse than left, x-rays 11/30/18= right > left OA Type 2 diabetes mellitus wit h vascular disease (CMS/HCC) DX:Type 2 diabetes mellitus with vascular disease ([facility]) Cellulitis and abscess of foot 07/17/2019 D X:Cellulitis and abscess of foot; COMMENT: R foot, hospitalized at [facility] 05/22/2019, transferred to [facility] 06/12/2019 for further I+D procedures. History of acute respiratory failure 07/17/2019 DX:History of acute respiratory failure; COMMENT: During 05/2019 hospitalization for R foot cellulitis. ICU intubated 06/01-06/10/19 Peripheral neuropathy 07/17/2019 DX:Periphe ral neuropathy Osteoarthritis 07/17/2019 DX:Osteoarthriti s; COMMENT: Hips and ankles, s/p cortisone inj to hips. Type 2 diabetes mellitus wit h neurological manifestation ([facility]) 07/17/2019 DX:Type 2 diabete s mellitus with neurological manifestation ([facility]) Obesity (BMI 30.0-34.9) DX:Obesi ty (BMI 30.0-34.9) Rosacea DX:Rosacea Family History Relation Name Status Comments Daughter Lisa Alive Son Jam Alive Social History Tobacco Use Types Packs/Day Years Used Date Smoking Tobacco: Former Smokeless Tobacco: Never Tobacco Cessation:Counseling Given: Not Answered Alcohol Use Standard Drinks/Week Comments Never 0 [...] care for your loved ones. For example, child welfare consultant or elderly care for an older adult? [...] file Not on file Not on file Obstetrics History Last Filed Vital Signs Vital Sign Reading Time Taken Comments Blood Pressure 178/100 11/13/2024 4:11 PM EST Pulse 65 11/13/2024 4:07 PM EST Temperature 35.8 ??C (96.4 ??F) 11/13/2024 4:07 PM ES T Respiratory Rate - - Oxygen Saturation 98% 11/13/2024 4:07 PM EST Inhaled Oxygen Concentration - - Weight 102 kg (225 lb) 11/13/2024 4:07 PM EST Height 172.7 cm (5' 8 ) 11/07/2024 8:55 AM EST Body Mass Index 34.21 11/07/2024 8:55 AM EST Plan of Treatment Upcoming Encounters Date Type Department Care Team (Late st Contact Info) Description 12/05/2024 10:00 AM EST Hospital Encounter [facility] Endoscopy [address] [place] [id number] Laureano Farmer MD 299 [facility] [address] [place] [address] 05/13/2025 2:00 PM EDT Office Visit Internal Medicine - [place] 175 [facility] [address] [place] [phone] Rita Wang PA 175 [facility] [address] [place] [address] Health Maintenance Due Date Last Done Comments Diabetes: Annual Foot Exam 1976 DTaP,Tdap,and Td Vaccines (1 - Tdap) 1985 Hepatitis B Vaccines (1 of 3 - 19+ 3-dose series) 1985 Zoster Vaccines (1 of 2) 2016 HIV Screening 10/09/2022 Hepatitis C Screening 10/09/2022 Diabetes: Annual Urine Albumin-Creatinine Ratio (uACR) 02/02/2024 02/01/2023 COVID-19 Vaccine ( season) 2024 09/20/2021, 01/25/2021, 01/04/2021 Influenza Vaccine (#1) 2024 , 08/06/2022, 09/20/2021, Additional history exists Diabetes: Blood Sugar Control Test (HGBA1C) 09/13/2024 03/13/2024, 03/13/2024 Diabetes: Annual Retina Eye Exam 10/03/2024 10/03/2023 Diabetes: Annual GFR (Glomerular Filtration Rate) 03/13/2025 03/13/2024, 03/13/2024 Hypertension/CHF/CAD Annual BMP Blood Test 03/13/2025 03/13/2024, 03/13/2024 Depression Screening 11/06/2025 11/06/2024 Social Influencers of Health Screening 11/06/2025 11/06/2024 Cholesterol Screening (Lipid Panel) 03/13/2029 03/13/2024, 03/13/2024 Colorectal Cancer Screening: Colonoscopy 07/29/2030 07/29/2020, 07/29/2020 Pneumococcal Vaccine: Pediatrics (0 to 5 Years) and At-Risk Patients (6 to 64 Years) (3 of 3 - PPSV23 or PCV20) 2031 08/14/2020, 08/01/2019 HIB Vaccines Aged Out No longer eligi ble based on patient's age to complete this topic HPV Vaccines Aged Out No longer eligi ble based on patient's age to complete this topic Hepatitis A Vaccines Aged Out No long er eligible based on patient's age to complete this topic IPV Vaccines Aged Out No longer eligi ble based on patient's age to complete this topic MMR Vaccines Aged Out No longer eligi ble based on patient's age to complete this topic Meningococcal ACWY Vaccine Aged Out N o longer eligible based on patient's age to complete this topic RSV Immunization Patients Under 20 months Aged Out No longer eligible based on patient's age to complete this topic Varicella Vaccines Aged Out No longer eligible based on patient's age to complete this topic Procedures Procedure Name Priority Date/Time Associated Diagnosis Comments ANNUAL BMP BLOOD TEST Routine 03/13/2024 HEMOGLOBIN A1C Routine 03/13/2024 LIPID PANEL Routine 03/13/2024 DIABETES EYE EXAM Routine 10/03/2023 URINE ALBUMIN CREATININE RATIO Routine 02/01/2023 COLONOSCOPY Routine 07/29/2020 from Last 3 Months or Most Recently Relevant to Health Maintenance Results * Annual BMP Blood Test (03/13/2024) Pathologist [facility] Annual BMP Blood Test abstracted Historical Provider MD ALMAS HICKS E * (ABNORMAL) Hemoglobin A1c (03/13/2024) [facility] Hemoglobin A1C 6.6(A) 6.5 % Blood Venous blood specimen / Unknown Historical Provider LAB BLOOD ORDERAB LES * (ABNORMAL) Lipid panel (03/13/2024) [facility] LDL/HDL Ratio 5(A) 0 - 4 Triglycerides 150 0 - 150 mg/dL Cholesterol 206(A) 0 - 200 mg/dL HDL 44 40 mg/dL LDL Cholesterol 132(A) 0 - 100 mg/dL Blood Venous blood specimen / Unknown Historical Provider LAB BLOOD ORDERAB LES * Diabetes Eye Exam (10/03/2023) [facility] Diabetes: Annual Retina Eye Exam abstracted Historical Provider [facility] * Urine Albumin Creatinine Ratio (02/01/2023) [facility] Urine Albumin Creatinine Ratio abstracted [facility] Provider [facility] E * Colonoscopy (07/29/2020) [facility] Colonoscopy no interpretation , abstracted Anatomical Region Laterality Modality Other [facility] Provider [facility] from Last 3 Months or Most Recently Relevant to Health Maintenance Care Teams Dry Cell Sealer Relationship Specialty Start Date End Date Rita Wang PA [address] [place] [address] PCP - General Internal Medicine 08/18/20
--- OUTSIDE RECORDS SUMMARY | 2024-11-30 09:20 | XMS_ITS | Encounter Summary ---
Author Organization [facility] Address [phone] [place] [address] Care Team Providers Care Overhead Cleaner Maintainer Name Role Phone Jw Humphrey MD Primary Care Provider +1- [phone] Jw Humphrey MD Primary Care Provider +1- [phone] Rita Wang PA-C Primary Care Provider Encounter Details Date Type Department Care Team (Late st Contact Info) Description 11/25/2022 Procedure Pass [address] [place] [address] Social History Tobacco Use Types Packs/Day Years [...] Description 01/22/2025 8:05 AM EDT Pre-Admission Testing [facility] PRETESTING [address] [place] [id number] Beto Ansari MD [address] [place] [address] [email or web address] 02/12/2025 Procedure Pass [facility] PERIOPERATIVE DEPT [address] [place] [address] 02/12/2025 11:30 AM EDT Hospital Encounter [facility] PERIOPERATIVE DEPT [address] [place] [address] Beto Ansari MD [address] [place] [address] [email or web address] 02/12/2025 11:30 AM EDT Anesthesia Event [facility] PERIOPERATIVE DEPT [address] [place] [address] Mayra Mckay CNP [address] [place] [address] [email or web address] 02/12/2025 11:30 AM EDT - 02/12/2025 1:49 PM EDT Surgery [facility] PERIOPERATIVE DEPT [address] [place] [address] Beto Ansari MD [address] [place] [address] [email or web address] ARTHROPLASTY TOTAL [...] documented as of this encounter Care Teams Overhead Cleaner Maintainer Relationship Specialty Start Date End Date Jw Humphrey MD PCP - General Internal Medicine 06/10/19 09/26/23 Jw Humphrey MD [address] [place] [address] PCP - General Internal Medicine 09/27/23 10/24/24 Rita Wang PA-C [address] [place] [id number] PCP - General 10/25/24 documented as of this encounter Additional Source Comments The information contained in this document represents components of the legal health record. It is not the complete legal health record.[facility]
--- OUTSIDE RECORDS SUMMARY | 2024-11-30 09:20 | XMS_ITS | Encounter Summary ---
Author Organization [facility] Address [address] [place] [address] Care Team Providers Care Armature Coil Winder Name Role Phone Rita Wang Primary Care Provider + Reason for Referral * Medications - Pending Review Specialty Diagnoses / Procedures Referred By Contsaul t Referred To Contact Diagnoses Type 2 diabetes mellitus with microalbuminuria, without long-term current use of insulin (CMS/HCC) Rita Wang PA [address] [address] Referral ID Status Reason Start Date Expiration Date V isits Requested Visits Authorized [id number] Pending Review 1 1 Reason for Visit * Reason Comments Diabetes Hypertension Hyperlipidemia Anxiety Depression Insomnia Obesity Encounter Details Date Type Department Care Team (Late st Contact Info) Description 11/13/2024 4:00 PM EST Office Visit Internal Medicine - [place] 175 [facility] [address] [facility] [address] [place] [address] Rita Wang PA 175 [facility] [address] [place] [address] Type 2 diabetes mellitus with microalbuminuria, without long-term current use of insulin (CMS/HCC) (Primary Dx); Primary hypertension; Pure hypercholesterolemia; Anxiety and depression; Insomnia, unspecified type; Obesity (BMI 30.0-34.9) Social History Tobacco Use Types Packs/Day Years [...] care for your loved ones. For example, childcare center director or elderly care for an older adult? [...] (225 lb) 11/13/2024 4:07 PM EST Height - - Body Mass Index 34.21 11/07/2024 8:55 AM EST documented in this encounter Ordered Prescriptions Prescription Sig Dispensed Refills Start Date End Da te semaglutide (OZEMPIC) 0.25 mg or 0.5 mg (2 mg/3 mL) injection penIndications:Type 2 diabetes mellitus with microalbuminuria, without long-term current use of insulin ([facility]) Inject 0.25 mg under the skin every 7 (seven) days. 2 mL 11/13/2024 documented in this encounter Progress Notes * GILLIAN Olsen - 11/13/2024 4:00 PM EST CHIEF COMPLAINT: Diabetes, Hypertension, Hyperlipidemia, Anxiety, Depression, Insomnia, and Obesity IDENTIFIER: Farhan Storey is a 59 y.o. old male. HPI: Follow-up diabetes, hypertension, hyperlipidemia, anxiety, depression, insomnia and obesity. He waslast seen by me for physical 03/13/2024. He was last seen in primary care via Dr. Bell for sick visit 08/29/2024 for allergic dermatitis around eyes. He was prescribed a cream which helped. Last labs (BMP, hemoglobin A1c, CBC with differential) were on 10/18/2024 and also had a hemoglobin A1c doneon at [facility] yesterday. States he is compliant with his medications and denies any side effects. Diabetes is treated with metformin 500 mg 2 tabs twice daily and glipizide ER 2.5 mg daily, last hemoglobin A1c 8.2. Admits he has not been paying good attention to diet, but has been really vigilantpast couple weeks. Will add ozempic 0.25 mg weekly. Hypertension is treated with metoprolol 50 mg in the morning and 100 mg at bedtime, HCTZ 12.5 mg daily, nifedipine ER 60 mg daily and lisinopril 40 mg daily, elevated in the office today 200/115 and 178/100. He was a little elevated at his last visit with me and was advised to monitor at home says runs in good range usually 120's/70's. Says he will cont to monitor at home. Hyperlipidemia is treated with atorvastatin 10 mg daily with last LDL 132, triglycerides 150, HDL 44 and 03/13/2024. Anxiety/depression/insomnia are stable on sertraline, Lamictal and trazodone. Obesewith BMI 34.21 and he is up 11 pounds since his last visit with me. BPH is stable on Flomax 0.4 mg daily and terazosin 10 mg nightly for which he is followed by urology. GERD is stable on pantoprazole 20 mg daily. Right hip arthritis followed by Ortho surgeon Dr. Ansari at [facility] and is status post right hip replacement 03/19/2024. He also needs to have left total hip replacement done, but needs to get sugars under better control. Plan to add ozempic and he says new surgery date 02/12/25. Says his right hip feels great, left hip in lot pain. HCM: Colonoscopy 07/29/2020, repeat [address] Farmer Eye exams yearly Dental exams every 6 months Other Providers: Urologist Dr. Angel every 6 months for hypogonadism on testosterone injections, BPH Ortho Dr. Ansari at [facility] Gen - hip OA Plastic Dr. 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 [place] DERM - Rosacea ROS: GENERAL: Negative for malaise, significant weight loss and fever RESPIRATORY: No cough, wheezing or shortness of breath CARDIOVASCULAR: No chest pain, leg swelling or palpitations SKIN: No lesions, rash or itching NEURO: No headaches or dizziness PAST MEDICAL HISTORY: Patient Active Problem List Diagnosis Date Noted Bilateral hip pain 08/04/2024 Chronic low back pain 08/04/2024 Obesity (BMI 30.0-34.9) 08/04/2024 Right ankle pain 08/04/2024 Type 2 diabetes mellitus with microalbuminuria, without long-term current use of insulin ([facility]) 08/04/2024 Vitamin D deficiency 08/04/2024 Rosacea 02/01/2023 Cellulitis and abscess of foot 07/17/2019 Osteoarthritis 07/17/2019 Peripheral neuropathy 07/17/2019 Type 2 diabetes mellitus with neurological manifestation ([facility]) 07/17/2019 Erectile dysfunction 10/13/2018 Hypogonadism, male 10/13/2018 Primary insomnia 09/13/2018 Hyperlipidemia 06/16/2018 Hypertension 06/16/2018 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 Garcia at [facility] ANKLE SURGERY Right 06/13/2019 PROCEDURE: HISTORICAL ANKLE SURGERY; COMMENT: further debridement of nonviable tissue, with wound VAC placed at [facility] Dr. Blakely ANKLE SURGERY Right 06/18/2019 PROCEDURE: HISTORICAL ANKLE SURGERY; COMMENT: wound debridement and Integra placement at [facility] Dr. Blakely ANKLE SURGERY Right 07/27/2019 PROCEDURE: HISTORICAL ANKLE SURGERY; COMMENT: removal integra, washout and debridment foot wound and split thickness graft right thigh - developed cellulitis (IV vancomycin and ceftriaxone)- PICC placed 08/06/19- d/c home 08/08/19 HIP ARTHROPLASTY Right 03/19/2024 PROCEDURE: HISTORICAL HIP REPLACEMENT; COMMENT: Dr. Renee at [facility] her daughter SOCIAL HISTORY: Social History Tobacco Use Smoking status: Former Smokeless tobacco: Never Substance Use Topics Alcohol use: Never FAMILY HISTORY: No family history on file. MEDICATIONS DISCONTINUED/REORDERED: Medications Discontinued During This Encounter Medication Reason meloxicam (MOBIC) 7.5 mg tablet Therapy completed gabapentin (NEURONTIN) 300 mg capsule Therapy completed LORazepam (ATIVAN) 0.5 mg tablet Therapy completed fluticasone propionate (FLONASE) 50 mcg/actuation nasal spray Therapy completed ACTIVE MEDICATIONS: No outpatient medications have been marked as taking for the 11/13/24 encounter (Office Visit) with GILLIAN Olsen. ALLERGIES: No Known Allergies PHYSICAL EXAM: Visit Vitals BP (!) 178/100 Pulse 65 Temp 35.8 ??C (96.4 ??F) (Temporal) Wt 102 kg (225 lb) SpO2 98% BMI 34.21 kg/m?? Smoking Status Former BSA 2.15 m?? APPEARANCE: Alert and in no acute distress EYES: Conjunctiva and sclera normal. HEART: RRR LUNG: clear to auscultation bilaterally ABDOMEN: Obese EXTREMITIES: No edema NEURO: Awake, alert and oriented x 3 SKIN: Skin color normal. Warm and dry. LABS: Abstract on 08/04/2024 Component Date Value Ref Range Status Annual BMP Blood Test 03/13/2024 abstracted Final HM Colonoscopy 07/29/2020 no interpretation, abstracted Final Diabetes: Annual Retina Eye Exam 10/03/2023 abstracted Final HM Urine Albumin Creatinine Ratio 02/01/2023 abstracted Final LDL/HDL Ratio 03/13/2024 5 (A) 0 - 4 Final Triglycerides 03/13/2024 150 0 - 150 mg/dL Final Cholesterol 03/13/2024 206 (A) 0 - 200 mg/dL Final HDL 03/13/2024 44 40 mg/dL Final LDL Cholesterol 03/13/2024 132 (A) 0 - 100 mg/dL Final Hemoglobin A1C 03/13/2024 6.6 (A) 6.5 % Final Medication and lab orders: No orders of the defined types were placed in this encounter. Other orders: None IMAGING: IMPRESSION: 1. Type 2 diabetes mellitus with microalbuminuria, without long-term current use of insulin ([facility]) 2. Primary hypertension 3. Pure hypercholesterolemia 4. Anxiety and depression 5. Insomnia, unspecified type 6. Obesity (BMI 30.0-34.9) PLAN: 1. DM type II with microalbuminuria, without long-term use insulin. Not optimally controlled. Continue metformin 500 mg 2 tabs twice daily with meals, glipizide ER 2.5 mg daily and adding Ozempic 0.25 mg weekly along with diet and exercise. He will reach out in the next month to see how he is doing with the medication. 2. Hypertension. Not optimally controlled in the office. Claims he runs in good range at home and will continue to monitor and stay on the same medication regimen (see HPI) along with DASH diet. 3. Hyperlipidemia. Stable. Reviewed most recent lipids. Continue with atorvastatin 10 mg daily along with diet and exercise. 4. Anxiety/depression/insomnia. Stable. Continue current medication regimen. 5. Obesity. Diet and exercise encouraged weight loss. Adding Ozempic. Follow-up 6 months for physical. Call sooner if needed. GILLIAN Olsen on 11/13/2024 at 4:37 PM EST documented in this encounter Plan of Treatment Upcoming Encounters Date Type Department Care Team (Late st Contact Info) Description 12/05/2024 10:00 AM EST Hospital Encounter [facility] Endoscopy [address] [place] [phone] Laureano Farmer MD 299 [facility] [address] [place] [address] 05/13/2025 2:00 PM EDT Office Visit Internal Medicine - [place] 175 [facility] [address] [place] [phone] Rita Wang PA 175 [facility] [address] [place] [address] documented as of this encounter Visit Diagnoses Diagnosis Type 2 diabetes mellitus with microalbuminuria, without long-term current use of insulin ([facility])- Primary Primary hypertension Unspecified essential hypertension Pure hypercholesterolemia Anxiety and depression Insomnia, unspecified type Obesity (BMI 30.0-34.9) documented in this encounter Discontinued Medications Medication Sig Discontinue Reason Start Date End Da te meloxicam (MOBIC) 7.5 mg tablet Take 1 tablet (7.5 mg total) by mouth 2 (two) times a day if needed for mild pain. for up to 7 days. Take with food Therapy completed 05/18/2024 11/13/2024 gabapentin (NEURONTIN) 300 mg capsule Take 1 capsule (300 mg total) by mouth 2 (two) times a day. Therapy completed 08/17/2023 11/13/2024 LORazepam (ATIVAN) 0.5 mg tablet Take 1 tablet (0.5 mg total) by mouth 3 (three) times a day if needed for anxiety. for up to 7 days Max Daily Amount: 1.5 mg Therapy completed 2018 11/13/2024 fluticasone propionate (FLONASE) 50 mcg/actuation nasal spray Administer 2 sprays into each nostril 1 (one) time each day if needed. Therapy completed 01/14/2020 11/13/2024 documented as of this encounter Additional Health Concerns Assessment Noted Time PHQ-9 Depression Total Score: 0 11/06/19 25 12:32 PM EST documented as of this encounter Care Teams Armature Coil Winder Relationship Specialty [place] [address] [place] [address] PCP - General Internal Medicine 08/18/20 documented as of this encounter
--- OUTSIDE RECORDS SUMMARY | 2024-11-30 09:20 | XMS_ITS | Encounter Summary ---
Author Organization [facility] Address [phone] [place] [address] Care Team Providers Care Distillery Miller Name Role Phone Jw Humphrey MD Primary Care Provider +1- [phone] Jw Humphrey MD Primary Care Provider +1- [phone] Rita Wang PA-C Primary Care Provider Encounter Details Date Type Department Care Team (Late Contact Info) Description 07/27/2019 Procedure Pass [facility] PERIOPERATIVE DEPT [address] [place] [phone] Social History Tobacco Use Types Packs/Day Years [...] Upcoming Encounters Date Type Department Care Team ([facility] Contact Info) Description 01/22/2025 8:05 AM EDT Pre-Admission Testing [facility] PRETEST[facility] [address] [place] [address] Beto Ansari MD [address] [place] [address] [email or web address] 02/12/2025 Procedure Pass [facility] PERIOPERATIVE DEPT [address] [place] [address] 02/12/2025 11:30 AM EDT Hospital Encounter [facility] PERIOPERATIVE DEPT [address] [place] [address] Beto Ansari MD [address] [place] [address] [email or web address] 02/12/2025 11:30 AM EDT Anesthesia Event [facility] PERIOPERATIVE DEPT [address] [place] [address] Mayra Mckay CNP [address] [place] [address] [email or web address] 02/12/2025 11:30 AM EDT - 02/12/2025 1:49 PM EDT Surgery [facility] PERIOPERATIVE DEPT [address] [place] [address] Beto Ansari MD [address] [place] [address] [email or web address] ARTHROPLASTY TOTAL HIP Scheduled Procedures Name [...] documented as of this encounter Care Teams Distillery Miller Relationship Specialty Start Date End Date Jw Humphrey MD PCP - General Internal Medicine 06/10/19 09/26/23 Jw Humphrey MD [address] [place] [address] PCP - General Internal Medicine 09/27/23 10/24/24 Rita Wang PA-C [address] [place] [address] PCP - General 10/25/24 documented as of this encounter Additional Source Comments The information contained in this document represents components of the legal health record. It is not the complete legal health record.[facility]
--- OUTSIDE RECORDS SUMMARY | 2024-11-30 09:20 | XMS_ITS | Encounter Summary ---
Author Organization [facility] Address [phone] [place] [address] Care Team Providers Care Rapier Insertion Loom Fixer Name Role Phone Jw Humphrey MD Primary Care Provider +1- [phone] Rita Wang PA-C Primary Care Provider Encounter Details Date Type Department Care Team (Late st Contact Info) Description 03/19/2024 Procedure Pass [facility] PER[facility]IVE [facility]PT [address] [place] [address] Social History Tobacco Use Types Packs/Day Years [...] [facility] [address] [place] [address] Beto Ansari MD [address] [place] [address] [email or web address] 02/12/2025 Procedure Pass [facility] PERIOPER[facility]IVE [facility]PT [address] [place] [address] 02/12/2025 11:30 AM EDT Hospital Encounter [facility] PERIOPERATIVE [facility]PT [address] [place] [address] Beto Ansari MD [address] [place] [address] [email or web address] 02/12/2025 11:30 AM EDT Anesthesia Event [facility] PERIOPERATIVE DEPT [address] [place] [address] Mayra Mckay CNP [address] [place] [address] [email or web address] 02/12/2025 11:30 AM EDT - 02/12/2025 1:49 PM EDT Surgery [facility] PERIOPER[facility]IVE DEPT [address] [place] [address] Beto Ansari MD [address] [place] [address] [email or web address] ARTHROPLASTY TOTAL HIP Scheduled Procedures Name Priority Associated Diagnoses Date/Ti me ARTHROPLASTY TOTAL HIP Primary osteoarthritis of left hip 02/12/2025 11:30 AM EDT MODIFIER ARTHROPLASTY HIP GURDEEP TAPERLOC MICROPLASTY Primary osteoarthritis of left hip 02/12/2025 11:30 AM EDT documented as of this encounter Visit Diagnoses Not on filedocumented in this encounter Care Teams Rapier Insertion Loom Fixer Relationship Specialty Start Date End Date Jw Humphrey MD [address] [place] [address] PCP - General Internal Medicine 09/27/23 10/24/24 Rita Wang PA-C [address] [place] [address] PCP - General 10/25/24 documented as of this encounter Additional Source Comments The information contained in this document represents components of the legal health record. It is not the complete legal health record.[facility]
== END 2024-11-30 10:08 | disposition home or self-care (01) ==
LOC: HO.HUSH 08:55
PROVIDERS: PCP Internal Medicine; Visit Provider Urology
DX: E11.69 Type 2 diabetes mellitus with other specified complication (principal); N52.1 Erectile dysfunction due to diseases classified elsewhere; N40.1 Benign prostatic hyperplasia with lower urinary tract symptoms; N13.8 Other obstructive and reflux uropathy; R79.89 Other specified abnormal findings of blood chemistry
CPT/HCPCS: 98013

== ENCOUNTER 2025-05-28 10:38 | Outpatient (AMB) | payer OTHER, SELFPAY ==
--- NOTE | 2025-05-28 10:53 | HO.NEPHOV_ITS ---
Vital Signs 05/28/25 10:59 Height 5 ft 8 in Weight 208 lb BMI 31.6 BP 120/76 Blood Pressure Location Lt brachial Position Sitting Pulse 70 Pulse Source Pulse Oximeter Pulse Oximetry (%) 97 Oxygen Delivery Method Room Air Intake Visit Reasons: Self Referral- [facility] P[employer] Tank Fabricator Required: No Accompanied by: Self / Same As Patient Allergies Sulfa (Sulfonamide Antibiotics) Allergy (Verified 05/28/25 11:02) Unknown HPI Comments Details: I had the pleasure of seeing Farhan in consultation for CKD and hypertension. He is 59 years of age and has been a diabetic and hypertensive. He has lost some weight on GLP 1 agonist and his blood pressure is better controlled.He is tolera ting JOHANA inhibitor well. He denies any coronary artery disease, carotid stenosis, congestive heart failure, CVA, PVD or known ZAIRE. He does not have any epistaxis, recurrent sinusitis, recurrent sore throat, microscopic hematuria, sensorineural deafness, new bone or back pain, excessive nonsteroidal anti- inflammatory intake, family history of ESRD or renal transplantation. He had no systemic complaints at the time of this office visit. [facility] Medical History (Updated 05/28/25 @ 11:33 by Mohamud Wesley MD) Benign enlargement of prostate Anxiety and depression Back pain of lumbar region with sciatica Spondylarthrosis HLD (hyperlipidemia) Erectile dysfunction Peripheral neuropathy Osteoarthritis Cellulitis and abscess of foot Rosacea Vitamin D deficiency Type 2 diabetes mellitus with microalbuminuria, without long-term current use of insulin Right ankle pain Obesity Chronic low back pain Bilateral hip pain Hypogonadism in male Insomnia Anxiety disorder GERD (gastroesophageal reflux disease) Asthma Diabetes mellitus, type II HTN (hypertension) Erectile disorder due to medical condition in male Urgency-frequency syndrome Bladder outlet obstruction Low testosterone Surgical History History of total right hip arthroplasty History of ankle surgery History of surgery Family History (Updated 05/28/25 @ 10:56 by Maylin Morgan MA) Maternal Uncle Diabetes mellitus Social History (Updated 05/28/25 @ 10:56 by Maylin Morgan MA) Alcohol intake: never Patient Tobacco Use Status: Former Tobacco user Review of Systems Const All systems reviewed & are unremarkable except as noted in HPI and below Physical Exam Vital Signs: Last Vital Signs Pulse 70 05/28/25 10:59 BP 120/76 05/28/25 10:59 Pulse Ox 97 05/28/25 10:59 Oxygen Delivery Method Room Air 05/28/25 10:59 BMI result Body Mass Index 31.6 Const General: comfortable and no acute distress Orientation/consciousness: patient oriented x3 HEENT Head: Yes normocephalic Mouth: Normal oral and palatal mucosa present Eyes EOM: EOMs intact bilaterally Neck Neck: Yes supple Resp Auscultation: clear to auscultation bilaterally Cardio Jugular venous distension: no JVD Rate: regular rate GI Palpation (GI): Soft to palpation Auscultation: normal bowel sounds General: Yes no CVA tenderness Back/Spine/Pelvis Back: no CVA tenderness Skin General skin exam: no rashes or lesions noted Neuro General: patient oriented x3 and moves all extremities Extrem General: Yes no pedal edema Assessment & Plan Assessment & Plan (1) HTN (hypertension): Code(s): I10 - Essential (primary) hypertension Category: Medical Qualifiers: Hypertension type: unspecified Qualified Code(s): I10 - Essential (primary) hypertension (2) CKD stage 3a, GFR 45-59 ml/min: Code(s): N18.31 - Chronic kidney disease, stage 3a Category: Medical Plan Farhan has mild CKD with hypertension. 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 He may be having vascular disease as well. His urine output is good. He has history of BPH and is on Flomax and terazosin. He is tolerating JOHANA inhibitor well. He is a great candidate for SGLT2 inhibitor. He is on GLP 1 agonist. He has lost weight. His blood pressure is at goal. I have ordered extensive workup including imaging studies. There is no indication for any renal biopsy now. All these have been discussed in detail. Answered all questions and follow-up was given. Orders: Orders Electrolytes 2 Weeks I10 - Essential (primary) hypertension, N18.31 - Chronic kidney disease, stage 3a Blood Urea Nitrogen 2 Weeks I10 - Essential (primary) hypertension, N18.31 - Chronic kidney disease, stage 3a Creatinine 2 Weeks I10 - Essential (primary) hypertension, N18.31 - Chronic kidney disease, stage 3a Immunofixation Pnl, Serum 2 Weeks I10 - Essential (primary) hypertension, N18.31 - Chronic kidney disease, stage 3a Protein Creatinine Ratio, Ur 2 Weeks I10 - Essential (primary) hypertension, N18.31 - Chronic kidney disease, stage 3a Calcium 2 Weeks I10 - Essential (primary) hypertension, N18.31 - Chronic kidney disease, stage 3a UA and rflx microscopic 2 Weeks I10 - Essential (primary) hypertension, N18.31 - Chronic kidney disease, stage 3a US renal BI 2 Weeks I10 - Essential (primary) hypertension, N18.31 - Chronic kidney disease, stage 3a US renal doppler 2 Weeks I10 - Essential (primary) hypertension, N18.31 - Chronic kidney disease, stage 3a Coding Level of Care Code New Pt Level 4 (17316) Diagnoses Hypertension, unspecified type I10 Hypertension type: unspecified CKD stage 3a, GFR 45-59 ml/min N18.31
[2025-05-28 10:59] VITALS: BP 120/76; PULSE 70; O2SAT 97; BMI 31.6
--- OUTSIDE RECORDS SUMMARY | 2025-05-28 11:44 | XMS_ITS | Encounter Summary ---
Author Organization [facility] Address [address] [facility] [address] [place] [address] Phone Care Team Providers Care Lap Winder Name Role Phone Jw Humphrey MD Primary Care Provider +1- [phone] Rita Wang Primary Care Provider + Encounter Details Date Type Department Care Team (Late st Contact Info) Description 02/15/2024 Transcribe Orders [facility] [address] [place] [address] Bridget Root CNP 2013 [facility] [address] [place] [address] [email or web address] Social History Tobacco Use Types Packs/Day Years [...] Care Team (Late st Contact Info) Description 05/29/2025 8:00 AM EDT Appointment [facility] - Diagnostic Radiology, Main [place] [address] [place] [address] Ninoska Howard, MAGDIEL [address] [facility] [address] [place] [address] [email or web address] 05/29/2025 10:15 AM EDT Office Visit [facility] 2013 [facility], [address] [place] [address] Beto Ansari MD [address] [facility], [facility] [address] [place] [address] [email or web address] documented as of this encounter Visit Diagnoses Not on filedocumented in this encounter Care Teams Lap Winder Relationship Specialty Start Date End Date Jw Humphrey MD [address] [place] [address] PCP - General Internal Medicine 09/27/23 10/24/24 Rita Wang PA 175 [facility] [address] [place] [address] PCP - General 10/25/24 documented as of this encounter Additional Source Comments The information contained in this document represents components of the legal health record. It is not the complete legal health record.[facility]
--- OUTSIDE RECORDS SUMMARY | 2025-05-28 11:44 | XMS_ITS | Clinical Summary ---
Author Organization [facility] 299 [facility] Address [address] [place] [address] Phone Care Team Providers Care News Videotape Editor Name Role Phone Rita Wang Primary Care Provider + Allergies No known active allergies Medications aspirin 81 mg EC tablet Take 1 tablet (81 mg total) by mouth 1 (one) time each day. 02/26/20 15 Active cholecalciferol (VITAMIN D-3) 50 mcg (2,000 unit) capsule Take 1 capsule (2,000 Units total) by mouth 1 (one) time each day. 03/17/20 18 Active doxycycline (VIBRAMYCIN) 100 mg capsule Take 1 capsule (100 mg total) by mouth 2 (two) times a day. 03/13/20 24 Active metroNIDAZOLE (METROGEL) 0.75 % gel Apply topically 2 (two) times a day. Apply and rub a thin film morning and evening, to entire affected 12/15/19 21 Active albuterol HFA (ProAir HFA) 90 mcg/actuation inhaler Inhale 2 puffs by mouth every 4 (four) hours if needed for wheezing or shortness of breath. 08/14/20 20 Active tadalafiL (CIALIS) 5 mg tablet Take 1 tablet (5 mg total) by mouth 1 (one) time each day. 07/27/20 23 Active tamsulosin (FLOMAX) 0.4 mg 24 hr capsule Take 1 capsule (0.4 mg total) by mouth 1 (one) time each day. 04/03/20 Active terazosin (HYTRIN) 10 mg capsule Take 1 capsule (10 mg total) by mouth. Active testosterone cypionate (DEPO-TESTOTERO NE) 200 mg/mL injection Inject 4 mL (800 mg total) into the shoulder, thigh, or buttocks every 14 (fourteen) days. 08/11/20 Active atorvastatin (LIPITOR) 10 mg tablet TAKE 1 TABLET BY MOUTH EVERY DAY 90 tablet 3 10/23/20 24 Active metFORMIN (GLUCOPHAGE) 500 mg tablet TAKE 2 TABS BY MOUTH 2 TIMES DAILY (WITH MEALS). 360 tablet 3 10/23/20 Active NIFEdipine CC (ADALAT CC) 60 mg 24 hr tabletIndicatio ns:Essential (primary) hypertension TAKE 1 TABLET BY MOUTH EVERY DAY 90 tablet 3 10/23/20 Active Additional Information Patient not taking.Reported on 11/07/2024 lisinopril (PRINIVIL,ZESTR IL) 40 mg tabletIndicatio ns:Essential (primary) hypertension TAKE 1 TABLET BY MOUTH EVERY DAY 90 tablet 3 10/26/20 24 Active traZODone (DESYREL) 100 mg tablet TAKE 1/2 TO 1 TABLET nightly 90 tablet 3 10/26/20 24 Active glipiZIDE (GLUCOTROL XL) 2.5 mg 24 hr tablet TAKE 1 TABLET BY MOUTH EVERY DAY 90 tablet 1 02/17/20 25 Active sertraline (ZOLOFT) 100 mg tabletIndicatio ns:Anxiety disorder, unspecified TAKE 2 TABLETS BY MOUTH EVERY DAY 180 tablet 1 02/17/20 25 Active metoprolol tartrate (LOPRESSOR) 100 mg tablet TAKE 1 TABLET BY MOUTH EVERY DAY IN THE MORNING 90 tablet 3 03/14/20 25 Active hydroCHLOROthia zide (HYDRODIURIL) 25 mg tablet TAKE 1 TABLET BY MOUTH EVERY DAY 90 tablet 3 03/14/20 25 Active pantoprazole (PROTONIX) 20 mg EC tabletIndicatio ns:Gastro-esoph ageal reflux disease without esophagitis TAKE 1 TABLET BY MOUTH EVERY DAY 90 tablet 1 03/14/20 25 Active lamoTRIgine (LaMICtal) 100 mg tablet TAKE 1 TABLET BY MOUTH EVERY DAY 90 tablet 1 04/22/20 25 Active semaglutide (Ozempic) 0.25 mg or 0.5 mg (2 mg/3 mL) injection penIndications: Type 2 diabetes mellitus with microalbuminuri a, without long-term current use of insulin ([facility] V24, [facility] V28) Inject 0.5 mg under the skin every 7 (seven) days. 6 mL 3 04/30/20 25 Active metoprolol tartrate (LOPRESSOR) 50 mg tablet Take 1 tablet (50 mg total) by mouth 2 (two) times a day. 90 tablet 3 05/06/20 25 026 Active metoprolol tartrate (LOPRESSOR) 50 mg tablet Take 1 tablet (50 mg total) by mouth 1 (one) time each day in the morning. SEPARATE FROM METOPROLOL 100 MG TAB AT NIGHT. 04/16/20 24 025 Discontinued semaglutide (Ozempic) 0.25 mg or 0.5 mg (2 mg/3 mL) injection penIndications: Type 2 diabetes mellitus with microalbuminuri a, without long-term current use of insulin ([facility] V24, [facility] V28) Inject 0.5 mg under the skin every 7 (seven) days. 6 mL 1 01/11/20 25 025 Discontinued Active Problems Problem Noted Date Diagnosed Date Bilateral hip pain 08/04/2024 Overview (08/04/2024): right worse than left, x-rays 11/30/18= right > left OA . S/p injection right hip 12/22/18 via arthrogrm- ortho Dr. Beltre Chronic low back pain 08/04/2024 Overview (08/04/2024): injection done [facility] 2018- MRI disc hernitation lumbar Obesity (BMI 30.0-34.9) 08/04/2024 Right ankle pain 08/04/2024 Overview (08/04/2024): OA- f/u [facility] Dr. Escalante Type 2 diabetes mellitus wit h microalbuminuria, without long-term current use of insulin ([facility] V24, [facility] V28) 08/04/2024 Vitamin D deficiency 08/04/2024 Rosacea 02/01/2023 Cellulitis and abscess of foot 07/17/2019 Overview (08/04/2024): R foot, hospitalized at [facility] 05/22/2019, transferred to [facility] 06/12/2019 for further I+D procedures. Osteoarthritis 07/17/2019 Overview (08/04/2024): Hips and ankles, s/p cortisone inj to hips. 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 Garcia at [facility] ANKLE SURGERY 06/13/2019 Right PROCEDURE: HISTORICAL ANKLE SURGERY; COMMENT: further debridement of nonviable tissue, with wound VAC placed at [facility] Dr. Blakely ANKLE SURGERY 06/18/2019 Right PROCEDURE: HISTORICAL ANKLE SURGERY; COMMENT: wound debridement and Integra placement at [facility] Dr. Blakely ANKLE SURGERY 07/27/2019 Right PROCEDURE: HISTORICAL ANKLE SURGERY; COMMENT: removal integra, washout and debridment foot wound and split thickness graft right thigh - developed cellulitis (IV vancomycin and ceftriaxone)- PICC placed 08/06/19- d/c home 08/08/19 HIP ARTHROPLASTY 03/19/2024 Right PROCEDURE: HISTORICAL HIP REPLACEMENT; COMMENT: Dr. Renee at [facility] actually her daughter Medical History Medical History [...] DX:Chronic low back pain; COMMENT: injection done [facility] 2018- MRI disc hernitation lumbar Anxiety and depression 11/04/2016 DX:Anxiet y and depression Bilateral hip pain DX:Bilateral hip pain; COMMENT: right worse than left, x-rays 11/30/18= right > left OA Type 2 diabetes mellitus wit h vascular disease (CMS/HCC V24, CMS/HCC V28) DX:Type 2 diabetes mellitus with vascular disease (HCC) Cellulitis and abscess of foot 07/17/2019 D X:Cellulitis and abscess of foot; COMMENT: R foot, hospitalized at [facility] 05/22/2019, transferred to [facility] 06/12/2019 for further I+D procedures. History of acute respiratory failure 07/17/2019 DX:History of acute respiratory failure; COMMENT: During 05/2019 hospitalization for R foot cellulitis. ICU intubated 06/01-06/10/19 Peripheral neuropathy 07/17/2019 DX:Periphe ral neuropathy Osteoarthritis 07/17/2019 DX:Osteoarthriti s; COMMENT: Hips and ankles, s/p cortisone inj to hips. 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 For example, child nutrition manager or elderly care for an older adult? [...] What is your living situation? 0 11/06/2024 Interpersonal Safety Answer Date Record ed Physical Abuse 12/05/2024 Verbal Abuse 12/05/2024 Sex and Gender Information Value Date Recorded Sex Assigned at Male 11/30/2024 9:48 AM EST Legal Sex Male 9:13 PM EST Gender Identity Male 11/30/2024 9:48 AM EST Sexual Orientation Straight 11/30/2024 9: 48 AM EST Obstetrics History Last Filed Vital Signs Vital Sign Reading Time Taken Comments Blood Pressure 145/90 12/05/2024 10:15 AM EST Pulse 60 12/05/2024 10:15 AM EST Temperature 36.1 C (96.9 F) 12/05/2024 9:55 AM EST Respiratory Rate 16 12/05/2024 10:15 AM EST Oxygen Saturation 98% 12/05/2024 10:15 AM EST Inhaled Oxygen Concentration - - Weight 102 kg (225 lb) 11/13/2024 4:07 PM EST Height 172.7 cm (5' 8 ) 11/07/2024 8:55 AM EST Body Mass Index 34.21 11/07/2024 8:55 AM EST Plan of Treatment Health Maintenance Due Date Last Done Comments Diabetes: Annual Foot Exam 1976 DTaP,Tdap,and Td Vaccines (1 - Tdap) 1985 Hepatitis B Vaccines (1 of 3 - 19+ 3-dose series) 1985 Zoster Vaccines (1 of 2) 2016 HIV Screening 10/09/2022 Hepatitis C Screening 10/09/2022 Diabetes: Annual Urine Albumin-Creatinine Ratio (uACR) 02/02/2024 02/01/2023 COVID-19 Vaccine ( season) 2024 09/20/2021, 01/25/2021, 01/04/2021 Diabetes: Blood Sugar Control Test (HGBA1C) 09/13/2024 03/13/2024, 03/13/2024 Diabetes: Annual Retina Eye Exam 10/03/2024 10/03/2023 Diabetes: Annual GFR (Glomerular Filtration Rate) 03/13/2025 03/13/2024, 03/13/2024 Hypertension/CHF/CAD Annual BMP Blood Test 03/13/2025 03/13/2024, 03/13/2024 Influenza Vaccine (#1) 2025 , 08/06/2022, 09/20/2021, Additional history exists Pneumococcal Vaccine: 50+ Years (3 of 3 - PCV20 or PCV21) 08/14/2025 08/14/2020, 08/01/2019 Social Influencers of Health Screening 11/06/2025 11/06/2024 Cholesterol Screening (Lipid Panel) 03/13/2029 03/13/2024, 03/13/2024 Colorectal Cancer Screening: Colonoscopy 07/29/2030 07/29/2020, 07/29/2020 Depression Screening Completed 11/06/2024 HIB Vaccines Aged Out No longer eligi [...] patient's age to complete this topic Meningococcal B Vaccine Aged Out No l onger eligible based on patient's age to complete [...] * Annual BMP Blood Test (03/13/2024) Pathologist [facility] Annual BMP Blood Test abstracted Result [facility] Provider HEALTH MAINTENANCE Final Result * (ABNORMAL) Hemoglobin A1c (03/13/2024) [facility] Hemoglobin A1C 6.6(A) <=6.5 % Blood Venous blood specimen / Unknown Result [facility] Provider LAB BLOOD ORDERABLES Gisella l Result * (ABNORMAL) Lipid panel (03/13/2024) [facility] LDL/HDL Ratio 5(A) 0 - 4 Triglycerides 150 0 - 150 mg/dL Cholesterol 206(A) 0 - 200 mg/dL HDL 44 >=40 mg/dL LDL Cholesterol 132(A) 0 - 100 mg/dL Blood Venous blood specimen / Unknown Result [facility] Provider LAB BLOOD ORDERABLES Gisella l Result * Diabetes Eye Exam (10/03/2023) [facility] Diabetes: Annual Retina Eye Exam abstracted Result [facility] Provider HEALTH MAINTENANCE Final Result * Urine Albumin Creatinine Ratio (02/01/2023) [facility] Urine Albumin Creatinine Ratio abstracted Result [facility] Provider HEALTH MAINTENANCE Final Result * Colonoscopy (07/29/2020) Colonoscopy no interpretation , abstracted Anatomical Region Laterality Modality Other Historical Provider MD HEALTH MAINTENANCE Final Result from Last 3 Months or Most Recently Relevant to Health Maintenance Insurance [employer] Care Teams News Videotape Editor Relationship Specialty Start Date End Date Rita Wang PA [address] [place] [address] PCP - General Internal Medicine 08/18/20
--- OUTSIDE RECORDS SUMMARY | 2025-05-28 11:44 | XMS_ITS | Patient Health Record ---
Author Organization [facility] Address [address] [place] [address] Care Team Providers Care Inspection Manager Name Role Phone Jw Humphrey MA Primary Care Provider UnavailChico Santcaruz Unavailable [phone] Reason For Referral No Information Medications Medication SIG (Take, Route, Fr equency, Duration) Notes Start Date End Date Status LaMICtal 100 MG 1 tablet Orally Twic e a day; Duration: 30 day(s) Active Ambien CR 6.25 MG 1 tablet at bedtime as needed Orally Once a day Active Keflex 500 500 MG 1 capsule Orally moshe ry 12 hrs; Duration: 10 day(s) 03/02/2012 Active Zoloft 200 MG 1 tablet Orally Once a day; Duration: 30 day(s) Active Problems Problem Type SNOMED Code ICD Code Onset Dates Problem Status W/U Status Risk Notes Problem Foot ulcer (66986253) Ulcer of Other Part of Foot (707.15) Active confirmed Problem Pain in limb (43339367) Pain in Limb (729.5) Active confirmed Problem Contusion of toe (17829845) Contusion of toe (924.3) Active confirmed Problem Abscess /Cellulitis (682.7) Active confirmed Plan Of Treatment Pending Test Test Name Order Date [id number] SKIN/TISSUE 03/02/2012 Insurance Providers Payer Name Payer Address Payer Phone Subscriber Number Group Number Insured Name Patient Relationship to Insured Coverage Start Date Coverage End Date [employer] ([facility]) [address] [place] [id number] Farhan Storey Self - patient is the insured Medical (General) History Medical History History ICD Code chicken pox depression Surgical History Surgery Date(Month/Year) carpal tunnel surgery ankle surgery stomach surgery
== END 2025-05-28 11:46 | disposition home or self-care (01) ==
LOC: HO.HKAS 10:38
PROVIDERS: PCP Physician Assistant; Visit Provider Internal Medicine Nephrology
DX: I10 Essential (primary) hypertension (principal); N18.31 Chronic kidney disease, stage 3a
CPT/HCPCS: 99204

== ENCOUNTER 2025-05-28 11:37 | Outpatient (REF) | payer OTHER, SELFPAY ==
[2025-05-28 18:17] LABS: Hematocrit 42.4 % (42.0-52.0); Hemoglobin 14.0 g/dl (14.0-18.0); Mean Corpuscular HGB Conc 33.0 g/dl (31.0-36.0); Mean Corpuscular Hemoglobin 29.6 pg (27.0-33.0); Mean Corpuscular Volume 89.6 fL (80.0-98.0); NRBC Abs Auto 0.000 X10*3/uL (0.0-0.012); NRBC Pct Auto 0.0 /100WBC (0.0-0.2); Platelet Count 240 X10*3/uL (160-400); Red Blood Count 4.73 X10*6/uL (4.60-5.80); White Blood Count 5.9 X10*3/uL (4.8-10.8)
[2025-05-31 10:49] LABS: Prostate Specific Antigen 0.78 ng/mL (<0.05-4.0)
== END 2025-05-28 11:38 | disposition home or self-care (01) ==
LOC: HO.HKASLDS 11:37
PROVIDERS: Visit Provider Urology
DX: R79.89 Other specified abnormal findings of blood chemistry (principal); Z12.5 Encounter for screening for malignant neoplasm of prostate
CPT/HCPCS: 36415; 84153; 84403; 85027

== ENCOUNTER 2025-06-19 07:36 | Outpatient (REF) | payer OTHER, SELFPAY ==
--- NOTE | ~2025-06-19 | US_ITS ---
CLINICAL HISTORY: N18.31 - Chronic kidney disease, stage 3a --- Additional Notes or Special Instructions: Needs to R O renal artery stenosis US renal duplex ultrasound Comparison: None available Technique: Real time duplex ultrasound imaging was performed by the email campaign manager. Multiple manufacturing sales representative static images were saved for review. Findings: Aorta: Normal waveform, 77.8 cm/s. Right kidney: Normal size and echotexture, 11.9 cm length. Simple cysts in the upper pole measuring 1.4 x 1.1 x 1.4 cm. Main renal artery peak systolic velocities (PSV), normal is <180cm/s: Proximal: 81.9 cm/s Mid: 87.1 cm/s Distal: 92.8 cm/s Max Renal PSV/Aorta PSV, normal is <3.5: 1.2 No pulsus parvus et tardus waveforms or turbulent flow. Max segmental resistive index: 0.75 Left kidney: Normal size and echotexture, 12.2 cm length. Simple cyst in the upper pole measuring 0.8 x 0.9 x 1.0 cm. Main renal artery peak systolic velocities (PSV), normal is <180cm/s: Proximal: 99.5 cm/s Mid: 88.7 cm/s Distal: 68.4 cm/s Max Renal PSV/Aorta PSV, normal is <3.5: 1.3 No pulsus parvus et tardus waveforms or turbulent flow. Max segmental resistive index: 0.71 Patent renal veins. Impression: No sonographic evidence of renal artery stenosis. This document has been electronically signed by: Connie Garg MD on 06/20/2025 14:53:51
--- NOTE | ~2025-06-19 | US_ITS ---
CLINICAL HISTORY: N18.31 - Chronic kidney disease, stage 3a --- Additional Notes or Special Instructions: Needs to R O renal artery stenosis US renal duplex ultrasound Comparison: None available Technique: Real time duplex ultrasound imaging was performed by the library services dean. Multiple tour sales representative static images were saved for review. Findings: Aorta: Normal waveform, 77.8 cm/s. Right kidney: Normal size and echotexture, 11.9 cm length. Simple cysts in the upper pole measuring 1.4 x 1.1 x 1.4 cm. Main renal artery peak systolic velocities (PSV), normal is <180cm/s: Proximal: 81.9 cm/s Mid: 87.1 cm/s Distal: 92.8 cm/s Max Renal PSV/Aorta PSV, normal is <3.5: 1.2 No pulsus parvus et tardus waveforms or turbulent flow. Max segmental resistive index: 0.75 Left kidney: Normal size and echotexture, 12.2 cm length. Simple cyst in the upper pole measuring 0.8 x 0.9 x 1.0 cm. Main renal artery peak systolic velocities (PSV), normal is <180cm/s: Proximal: 99.5 cm/s Mid: 88.7 cm/s Distal: 68.4 cm/s Max Renal PSV/Aorta PSV, normal is <3.5: 1.3 No pulsus parvus et tardus waveforms or turbulent flow. Max segmental resistive index: 0.71 Patent renal veins. Impression: No sonographic evidence of renal artery stenosis. This document has been electronically signed by: Connie Garg MD on 06/20/2025 14:53:51
--- OUTSIDE RECORDS SUMMARY | 2025-06-19 07:39 | XMS_ITS | Clinical Summary ---
Author Organization [facility] 299 [facility] Address [address] [place] [address] Phone Care Team Providers Care District Ranger Name Role Phone Rita Wang Primary Care Provider + Allergies No known active allergies Medications aspirin 81 mg EC tablet Take 1 tablet (81 mg total) by mouth 1 (one) time each day. 5 Active cholecalciferol (VITAMIN D-3) 50 mcg (2,000 unit) capsule Take 1 capsule (2,000 Units total) by mouth 1 (one) time each day. 8 Active doxycycline (VIBRAMYCIN) 100 mg capsule Take 1 capsule (100 mg total) by mouth 2 (two) times a day. 4 Active metroNIDAZOLE (METROGEL) 0.75 % gel Apply topically 2 (two) times a day. Apply and rub a thin film morning and evening, to entire affected 1 Active albuterol HFA (ProAir HFA) 90 mcg/actuation inhaler Inhale 2 puffs by mouth every 4 (four) hours if needed for wheezing or shortness of breath. 0 Active tadalafiL (CIALIS) 5 mg tablet Take 1 tablet (5 mg total) by mouth 1 (one) time each day. 3 Active tamsulosin (FLOMAX) 0.4 mg 24 hr capsule Take 1 capsule (0.4 mg total) by mouth 1 (one) time each day. 9 Active terazosin (HYTRIN) 10 mg capsule Take 1 capsule (10 mg total) by mouth. Active testosterone cypionate (DEPO-TESTOTERON E) 200 mg/mL injection Inject 4 mL (800 mg total) into the shoulder, thigh, or buttocks every 14 (fourteen) days. 3 Active atorvastatin (LIPITOR) 10 mg tablet TAKE 1 TABLET BY MOUTH EVERY DAY 90 tablet 3 4 Active metFORMIN (GLUCOPHAGE) 500 mg tablet TAKE 2 TABS BY MOUTH 2 TIMES DAILY (WITH MEALS). 360 tablet 3 4 Active NIFEdipine CC (ADALAT CC) 60 mg 24 hr tabletIndication s:Essential (primary) hypertension TAKE 1 TABLET BY MOUTH EVERY DAY 90 tablet 3 4 Active Additional Information Patient not taking.Reported on 11/07/2024 lisinopril (PRINIVIL,ZESTRI L) 40 mg tabletIndication s:Essential (primary) hypertension TAKE 1 TABLET BY MOUTH EVERY DAY 90 tablet 3 4 Active traZODone (DESYREL) 100 mg tablet TAKE 1/2 TO 1 TABLET nightly 90 tablet 3 4 Active glipiZIDE (GLUCOTROL XL) 2.5 mg 24 hr tablet TAKE 1 TABLET BY MOUTH EVERY DAY 90 tablet 1 5 Active sertraline (ZOLOFT) 100 mg tabletIndication s:Anxiety disorder, unspecified TAKE 2 TABLETS BY MOUTH EVERY DAY 180 tablet 1 5 Active metoprolol tartrate (LOPRESSOR) 100 mg tablet TAKE 1 TABLET BY MOUTH EVERY DAY IN THE MORNING 90 tablet 3 5 Active hydroCHLOROthiaz melissa (HYDRODIURIL) 25 mg tablet TAKE 1 TABLET BY MOUTH EVERY DAY 90 tablet 3 5 Active pantoprazole (PROTONIX) 20 mg EC tabletIndication s:Gastro-esophag eal reflux disease without esophagitis TAKE 1 TABLET BY MOUTH EVERY DAY 90 tablet 1 5 Active lamoTRIgine (LaMICtal) 100 mg tablet TAKE 1 TABLET BY MOUTH EVERY DAY 90 tablet 1 5 Active semaglutide (Ozempic) 0.25 mg or 0.5 mg (2 mg/3 mL) injection penIndications:T ype 2 diabetes mellitus with microalbuminuria , without long-term current use of insulin ([facility] V24, [facility] V28) Inject 0.5 mg under the skin every 7 (seven) days. 6 mL 3 5 Active metoprolol tartrate (LOPRESSOR) 50 mg tablet Take 1 tablet (50 mg total) by mouth 2 (two) times a day. 90 tablet 3 5 05/06/20 26 Active Active Problems Problem Noted Date Diagnosed Date Bilateral hip pain 08/04/2024 Overview (08/04/2024): right worse than left, x-rays 11/30/18= right > left OA . S/p injection right hip 12/22/18 via arthrogrm- ortho Dr. Beltre Chronic low back pain 08/04/2024 Overview (08/04/2024): injection done [facility] 2018- MRI disc hernitation lumbar Obesity (BMI 30.0-34.9) 08/04/2024 Right ankle pain 08/04/2024 Overview (08/04/2024): OA- f/u [facility] Dr. Escalante Type 2 diabetes mellitus wit h microalbuminuria, without long-term current use of insulin ([facility] V24, [facility] V28) 08/04/2024 Vitamin D deficiency 08/04/2024 Rosacea 02/01/2023 Cellulitis and abscess of foot 07/17/2019 Overview (08/04/2024): R foot, hospitalized at [facility] 05/22/2019, [place] [facility] [place]12[place]2019 for further I+D procedures. Osteoarthritis 07/17/2019 Overview (08/04/2024): Hips and ankles, s/p cortisone inj to hips. 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 Garcia at [facility] ANKLE SURGERY 06/13/2019 Right PROCEDURE: HISTORICAL ANKLE SURGERY; COMMENT: further debridement of nonviable tissue, with wound VAC placed [place] [facility] [place]. Blakely ANKLE SURGERY 06/18/2019 Right PROCEDURE: HISTORICAL ANKLE SURGERY; COMMENT: wound debridement and Integra placement [place] [facility] [place]. Blakely ANKLE SURGERY 07/27/2019 Right PROCEDURE: HISTORICAL ANKLE SURGERY; COMMENT: removal integra, washout and debridment foot wound and split thickness graft right thigh - developed cellulitis (IV vancomycin and ceftriaxone)- PICC placed 08/06/19- d/c home 08/08/19 HIP ARTHROPLASTY 03/19/2024 Right PROCEDURE: HISTORICAL HIP REPLACEMENT; COMMENT: Dr. Renee at [facility] her daughter Medical History Medical History Date [...] DX:Chronic low back pain; COMMENT: injection done [facility] 2018- MRI disc hernitation lumbar Anxiety and depression 11/04/2016 DX:Anxiet y and depression Bilateral hip pain DX:Bilateral hip pain; COMMENT: right worse than left, x-rays 11/30/18= right > left OA Type 2 diabetes mellitus wit h vascular disease ([facility] V24, [facility] V28) DX:Type 2 diabetes mellitus with vascular disease (HCC) Cellulitis and abscess of foot 07/17/2019 D X:Cellulitis and abscess of foot; COMMENT: R foot, hospitalized at [facility] 05/22/2019, [place] [facility] [place] for further I+D procedures. History of acute respiratory failure 07/17/2019 DX:History of acute respiratory failure; COMMENT: During 05/2019 hospitalization for R foot cellulitis. ICU intubated 06/01-06/10/19 Peripheral neuropathy 07/17/2019 DX:Periphe ral neuropathy Osteoarthritis 07/17/2019 DX:Osteoarthriti s; COMMENT: Hips and ankles, s/p cortisone inj to hips. 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 For example, child life therapist or elderly care for an older adult? [...] Results * Annual BMP Blood Test (03/13/2024) Annual BMP Blood Test abstracted us Historical Provider MD HEALTH MAINTENANCE Final Result * (ABNORMAL) Hemoglobin A1c (03/13/2024) Hemoglobin A1C 6.6(A) <=6.5 % Blood Venous blood specimen / Unknown Result [facility] Provider LAB BLOOD ORDERABLES Gisella l Result * (ABNORMAL) Lipid panel (03/13/2024) [facility] LDL/HDL Ratio 5(A) 0 - 4 Triglycerides 150 0 - 150 mg/dL Cholesterol 206(A) 0 - 200 mg/dL HDL 44 >=40 mg/dL LDL Cholesterol 132(A) 0 - 100 mg/dL Blood Venous blood specimen / Unknown Result [facility] Provider LAB BLOOD ORDERABLES Gisella l Result * Diabetes Eye Exam (10/03/2023) [facility] Diabetes: Annual Retina Eye Exam abstracted Result [facility] Provider HEALTH MAINTENANCE Final Result * Urine Albumin Creatinine Ratio (02/01/2023) [facility] Urine Albumin Creatinine Ratio abstracted Result [facility] Provider HEALTH MAINTENANCE Final Result * Colonoscopy (07/29/2020) [facility] Colonoscopy no interpretation , abstracted Anatomical Region Laterality Modality Other Result [facility] Provider HEALTH MAINTENANCE Final Result from Last 3 Months or Most Recently Relevant to Health Maintenance Insurance [employer] Care Teams District Ranger Relationship Specialty Start Date End Date Rita Wang PA [address] [place] [address] PCP - General Internal Medicine 08/18/20
--- OUTSIDE RECORDS SUMMARY | 2025-06-19 07:39 | XMS_ITS | Encounter Summary ---
Author Organization [facility] Address [address] [place] [address] Phone Care Team Providers Care Plaster Tender Name Role Phone Jw Humphrey MD Primary Care Provider [phone] Rita Wang Primary Care Provider + Encounter Details Date Type Department Care Team (Late st Contact Info) Description 02/15/2024 Transcribe Orders [facility] LAB SPECIMEN [address] [place] [address] Bridget Root CNP [address] [facility] [address] [place] [address] [email or web address] Social History Tobacco [...] on file documented as of this encounter Visit Diagnoses Not on filedocumented in this encounter Care Teams Plaster Tender Relationship Specialty Start Date End Date Jw Humphrey MD [address] [place] [id number] PCP - General Internal Medicine 09/27/23 10/24/24 Rita Wang PA [address] [place] [id number] PCP - General 10/25/24 documented as of this encounter Additional Source Comments The information contained in this document represents components of the legal health record. It is not the complete legal health record.[facility]
--- OUTSIDE RECORDS SUMMARY | 2025-06-19 07:39 | XMS_ITS | Patient Health Record ---
[facility] Address [address] [facility] [place] [address] Care Team Providers Care Warehouse Specialist Name Role Phone Jw Humphrey MA Primary Care Provider UnavailChico Santacruz Unavailable [phone] Reason For Referral No Information Medications Medication [...] W/U Status Risk Notes Problem Foot ulcer (75577822) Ulcer of Other Part of Foot (707.15) Active confirmed Problem Pain in limb (07022480) Pain in Limb (729.5) Active confirmed Problem Contusion of toe (68574944) Contusion of toe (924.3) Active confirmed Problem Abscess /Cellulitis (682.7) Active confirmed Plan Of Treatment Pending Test Test Name Order Date [id number] SKIN/TISSUE 03/02/2012 Insurance Providers Payer Name Payer Address Payer Phone Subscriber Number Group Number Insured Name Patient Relationship to Insured Coverage Start Date Coverage End Date [employer] ([facility]) [address] [place] [id number] Farhan Storey Self - patient is the insured Medical (General) History Medical History History ICD Code chicken pox depression Surgical History Surgery Date(Month/Year) carpal tunnel surgery ankle surgery stomach surgery
== END 2025-06-19 07:37 | disposition home or self-care (01) ==
LOC: HO.US 07:36
PROVIDERS: PCP Physician Assistant; Visit Provider Internal Medicine Nephrology
DX: I12.9 Hypertensive chronic kidney disease with stage 1 through stage 4 chronic kidney disease, or unspecified chronic kidney disease (principal); N18.31 Chronic kidney disease, stage 3a
CPT/HCPCS: 76775; 93975

== ENCOUNTER → 2025-06-19 07:38 | Outpatient (BNV) | payer OTHER, SELFPAY | PROVIDERS: PCP Physician Assistant; Visit Provider Radiology Diagnostic Radiology | DX: I10 Essential (primary) hypertension (principal) | CPT/HCPCS: 93975 ==

== ENCOUNTER 2025-07-11 15:26 | Outpatient (AMB) | payer OTHER, SELFPAY ==
--- OUTSIDE RECORDS SUMMARY | 2003-08-16 | XMS_ITS | Encounter Summary ---
Author Organization [facility] Address [address] [place] [address] Phone Care Team Providers Care City Manager Name Role Phone Unavailable Primary Care Provider Unavailabl e Encounter Details Date Type Department Care Team (Late st Contact Info) Description 08/16/2003 Hospital Encounter [facility] [address] [place] [address] Jaja Hudson, INSPECTING AND TESTING LEAD HAND [address] [place] [address] [email or web address] Social History Tobacco Use Types Packs/Day Years [...] 12/30/2022 7:34 AM Janny Mcbride RN * [place] Suicide Severity Rating Scale (Screener/Recent Self-Report) Question [...] (No Interpretation) (08/16/2003 12:00 AM EDT) Narrative [facility] - 06/15/2019 9:28 AM EDT This study is for PACS storage only and not for interpretation. us Jaja Hudson CNP IMG OUTSIDE IMAGING W/ OUT INTERPRETATION Final Result [facility] documented in this encounter Visit [...] It is not the complete legal health record.[facility]
--- NOTE | 2025-07-11 15:31 | HO.NEPHOV ---
Vital Signs 07/11/25 15:32 Height 5 ft 8 in Weight 209 lb BMI 31.8 BP 116/70 Blood Pressure Location Lt brachial Position Sitting Pulse 66 Pulse Source Pulse Oximeter Pulse Oximetry (%) 97 Oxygen Delivery Method Room Air Intake Visit Reasons: 1mon f/u w/labs-LVM Marking Machine Tender Required: No Accompanied by: Self / Same As Patient Allergies Sulfa (Sulfonamide Antibiotics) Allergy (Verified 07/11/25 15:32) Unknown HPI Comments Details: I had the pleasure of seeing Farhan in follow up for CKD and hypertension. He is 59 years of age and has been a diabetic and hypertensive. He has lost some weight on GLP 1 agonist and his blood pressure is better controlled.He is tolerating JOHANA inhibitor well. He denies any coronary artery disease, carotid stenosis, congestive heart failure, CVA, PVD or known ZAIRE. He does not have any epistaxis, recurrent sinusitis, recurrent sore throat, microscopic hematuria, sensorineural deafness, new bone or back pain, excessive nonsteroidal anti-inflammatory intake, family history of ESRD or renal transplantation. He had no systemic complaints at the time of this office visit. [facility] Medical History (Updated 05/28/25 @ 11:33 by Mohamud Wesley MD) Benign enlargement of prostate Anxiety and depression Back pain of lumbar region with sciatica Spondylarthrosis HLD (hyperlipidemia) Erectile dysfunction Peripheral neuropathy Osteoarthritis Cellulitis and abscess of foot Rosacea Vitamin D deficiency Type 2 diabetes mellitus with microalbuminuria, without long-term current use of insulin Right ankle pain Obesity Chronic low back pain Bilateral hip pain Hypogonadism in male Insomnia Anxiety disorder GERD (gastroesophageal reflux disease) Asthma Diabetes mellitus, type II HTN (hypertension) Erectile disorder due to medical condition in male Urgency-frequency syndrome Bladder outlet obstruction Low testosterone Surgical History History of total right hip arthroplasty History of ankle surgery History of surgery Family History Maternal Uncle Diabetes mellitus Social History Alcohol intake: never Patient Tobacco Use Status: Former Tobacco user Review of Systems Const All systems reviewed & are unremarkable except as noted in HPI and below Physical Exam Vital Signs: Last Vital Signs Pulse 66 07/11/25 15:32 BP 116/70 07/11/25 15:32 Pulse Ox 97 07/11/25 15:32 Oxygen Delivery Method Room Air 07/11/25 15:32 BMI result Body Mass Index 31.8 Const General: comfortable and no acute distress Orientation/consciousness: patient oriented x3 HEENT Head: Yes normocephalic Mouth: Normal oral and palatal mucosa present Eyes EOM: EOMs intact bilaterally Neck Neck: Yes supple Resp Auscultation: clear to auscultation bilaterally Cardio Jugular venous distension: no JVD Rate: regular rate GI Palpation (GI): Soft to palpation Auscultation: normal bowel sounds General: Yes no CVA tenderness Back/Spine/Pelvis Back: no CVA tenderness Skin General skin exam: no rashes or lesions noted Neuro General: patient oriented x3 and moves all extremities Extrem General: Yes no pedal edema Results Reviewed Nephrology Results: Hgb, (14.0-18.0) 14.0 g/dl 05/28/25 WBC, (4.8-10.8) 5.9 X10*3/uL 05/28/25 Plt Count, (160-400) 240 X10*3/uL Δ 05/28/25 Renal US 06/20/25 Assessment & Plan Assessment & Plan (1) HTN (hypertension): Code(s): I10 - Essential (primary) hypertension Category: Medical Qualifiers: Hypertension type: unspecified Qualified Code(s): I10 - Essential (primary) hypertension (2) CKD stage 3a, GFR 45-59 ml/min: Code(s): N18.31 - Chronic kidney disease, stage 3a Category: Medical Plan Farhan has mild CKD with hypertension. 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 He may be having vascular disease as well. His urine output is good. He has history of BPH and is on Flomax and terazosin. He is tolerating JOHANA inhibitor well. He is a great candidate for SGLT2 inhibitor. He is on GLP 1 agonist. He has lost weight. His blood pressure is at goal. His renal imaging study was unremarkable. There is no indication for any renal biopsy now. All these have been discussed in detail. Answered all questions and follow-up was given Orders: Orders Protein Creatinine Ratio, Ur 7 Months I10 - Essential (primary) hypertension, N18.31 - Chronic kidney disease, stage 3a Creatinine 7 Months I10 - Essential (primary) hypertension, N18.31 - Chronic kidney disease, stage 3a Blood Urea Nitrogen 7 Months I10 - Essential (primary) hypertension, N18.31 - Chronic kidney disease, stage 3a Electrolytes 7 Months I10 - Essential (primary) hypertension, N18.31 - Chronic kidney disease, stage 3a Hemoglobin A1c 7 Months I10 - Essential (primary) hypertension, N18.31 - Chronic kidney disease, stage 3a Coding Level of Care Code Est Pt Level 4 (45560) Diagnoses Hypertension, unspecified type I10 Hypertension type: unspecified CKD stage 3a, GFR 45-59 ml/min N18.31
[2025-07-11 15:32] VITALS: BP 116/70; PULSE 66; O2SAT 97; BMI 31.8
--- OUTSIDE RECORDS SUMMARY | 2025-07-11 18:37 | XMS_ITS | Encounter Summary ---
Author Organization [facility] Address [address] [facility] [address] [place] [address] Phone Care Team Providers Care Egg Trayer Name Role Phone Jw Humphrey MD Primary Care Provider +1- [phone] Jw Humphrey MD Primary Care Provider +1- [phone] Rita Wang Primary Care Provider + Encounter Details Date Type Department Care Team (Late st Contact Info) Description 07/27/2019 Procedure Pass [facility] PERIOPERATIVE DEPT [address] [place] [phone] Social History Tobacco Use Types Packs/Day Years [...] documented as of this encounter Care Teams Egg Trayer Relationship Specialty Start Date End Date Jw Humphrey MD PCP - General Internal Medicine 06/10/19 09/26/23 Jw Humphrey MD [address] [place] [address] PCP - General Internal Medicine 09/27/23 10/24/24 Rita Wang PA [address] [place] [id number] PCP - General 10/25/24 documented as of this encounter Additional Source Comments The information contained in this document represents components of the legal health record. It is not the complete legal health record.[facility]
--- OUTSIDE RECORDS SUMMARY | 2025-07-11 18:37 | XMS_ITS | Encounter Summary ---
Author Organization [facility] Address [address] [facility] [address] [place] [address] Phone Care Team Providers Care Nursing Educator Name Role Phone Jw Humphrey MD Primary Care Provider +1- [phone] Jw Humphrey MD Primary Care Provider +1- [phone] Rita Wang Primary Care Provider + Encounter Details Date Type Department Care Team (Late st Contact Info) Description 06/15/2019 Procedure Pass [facility] [address] [place] [address] Social History Tobacco Use Types Packs/Day Years Used Date Smoking Tobacco: Never Assessed Sex and Gender Information Value Date Recorded [...] documented as of this encounter Care Teams Nursing Educator Relationship Specialty Start Date End Date Jw Humphrey MD PCP - General Internal Medicine 06/10/19 09/26/23 Jw Humphrey MD [address] [place] [id number] PCP - General Internal Medicine 09/27/23 10/24/24 Rita Wang PA [address] [place] [id number] PCP - General 10/25/24 documented as of this encounter Additional Source Comments The information contained in this document represents components of the legal health record. It is not the complete legal health record.[facility]
--- OUTSIDE RECORDS SUMMARY | 2025-07-11 18:37 | XMS_ITS | Encounter Summary ---
Author Organization [facility] Address [address] [facility] [address] [place] [address] Phone Care Team Providers Care Rn Clinical Trials Name Role Phone Jw Humphrey MD Primary Care Provider +1- [phone] Jw Humphrey MD Primary Care Provider +1- [phone] Rita Wang Primary Care Provider + Encounter Details Date Type Department Care Team (Latest Contact Info) Description 08/10/2019 Transcribe Orders [facility] [address] [place] [address] Anatoly White MD [address] [place] [id number] [email or web address] Diagnosis unknown (Primary Dx) Social History [...] on file documented as of this encounter Results * Vancomycin, trough (08/10/2019 10:00 AM EDT) VANCOMYCIN,TROU GH 12.1 10.0 - 20.0 ug/mL [facility] Comment: Pre-dose level 10-20 ug/mL depending on disease severity/organism susceptibility. Blood 08/10/2019 10:0 0 AM EDT 08/10/2019 3:39 PM EDT us Anatoly White MD LAB BLOOD ORDERABLES Final Re sult [facility] [address] [place] [address] documented in this encounter Visit Diagnoses Diagnosis Diagnosis unknown- Primary documented in this encounter Additional Health Concerns Infection Onset Date Last Indicated Resolved Time MDR-GN Comment:06/13/19 wound Enterobacter R to ceftriaxone 06/15/2019 06/15/2019 05/27/2023 1:22 AM E DT VRE 08/16/2019 08/16/2019 12/15/2022 1:26 AM EST documented as of this encounter Care Teams Rn Clinical Trials Relationship Specialty Start Date End Date Jw Humphrey MD PCP - General Internal Medicine 06/10/19 09/26/23 Jw Humphrey MD [address] [place] [id number] PCP - General Internal Medicine 09/27/23 10/24/24 Rita Wang PA [address] [place] [id number] PCP - General 10/25/24 documented as of this encounter Additional Source Comments The information contained in this document represents components of the legal health record. It is not the complete legal health record.[facility]
--- OUTSIDE RECORDS SUMMARY | 2025-07-11 18:37 | XMS_ITS | Encounter Summary ---
Author Organization [facility] Address [address] [facility] [address] [place] [address] Phone Care Team Providers Care Skin Care Therapist Name Role Phone Jw Humphrey MD Primary Care Provider +1- [phone] Jw Humphrey MD Primary Care Provider +1- [phone] Rita Wang Primary Care Provider + Encounter Details Date Type Department Care Team (Late st Contact Info) Description 12/30/2022 Procedure Pass [place] Admitting Dept - Virtual Department [address] [place] [address] Social History Tobacco Use Types Packs/Day Years [...] No Risk Indicated 12/30/2022 7:34 AM Janny Mcbride, RN * [place] Suicide Severity Rating Scale (Screener/Recent Self-Report) Question [...] 06/15/2019 06/15/2019 05/27/2023 1:22 AM E DT documented as of this encounter Care Teams Skin Care Therapist Relationship Specialty Start Date End Date Jw Humphrey MD PCP - General Internal Medicine 06/10/19 09/26/23 Jw Humphrey MD [address] [place] [id number] PCP - General Internal Medicine 09/27/23 10/24/24 Rita Wang PA [address] [place] [id number] PCP - General 10/25/24 documented as of this encounter Additional Source Comments The information contained in this document represents components of the legal health record. It is not the complete legal health record.[facility]
--- OUTSIDE RECORDS SUMMARY | 2025-07-11 18:37 | XMS_ITS | Clinical Summary ---
Author Organization [facility] Address [id number] [place] [address] Phone Care Team Providers Care Robotic Technician Name Role Phone Rita Wang Primary Care Provider + Allergies Active Allergy Reactions Criticality Noted Date Comments Sulfamethoxazole-Trimethop rim Diarrhea,Nausea and/or Vomiting Medium 06/23/2019 Medications metFORMIN (GLUCOPHAGE) 500 MG tablet Take 1,000 mg by mouth 2 (two) times a day with meals. Active lisinopril (PRINIVIL,ZESTRIL) 40 MG tablet Take 40 [...] tablet Take 2.5 mg by mouth daily. 09/18/20 22 Active SOOLANTRA 1 % APPLY IN THE MORNING TO FACE ROSACEA 10/26/20 22 Active testosterone cypionate (DEPO-TESTOTERONE) 200 mg/mL injection INJECT 80 MG (0.4 ML) SUBCUTANEOUSLY EVERY WEEK FOR 4 WEEKS TWO INJECTIONS FROM EACH VIAL 11/15/19 23 Active tadalafiL (CIALIS) 5 MG tablet TAKE 1 TABLET BY MOUTH ONCE DAY. 11/08/19 23 Active doxycycline hyclate (VIBRAMYCIN) 100 MG capsule Take 100 mg by mouth daily. Takes once daily for rosacea 02/02/20 23 Active metoprolol tartrate (LOPRESSOR) 50 MG tablet Take 50 mg by mouth nightly at bedtime. 01/15/20 24 Active hydroCHLOROthiazid e (HYDRODIURIL) 25 MG tablet Take 1 tablet by mouth every morning. 12/07/19 24 Active acetaminophen (TYLENOL) 500 MG tablet Take 2 tablets (1,000 mg total) by mouth every 8 (eight) hours as needed. 03/20/20 24 Active pantoprazole (PROTONIX) 20 MG tablet Take 1 tablet by mouth every morning. 12/16/19 25 Active OZEMPIC 0.25 mg or 0.5 mg (2 mg/3 mL) subcutaneous injection pen Inject 0.5 mg under the skin every 7 days. 12/14/19 25 Active tacrolimus (PROTOPIC) 0.1 % ointment Apply 1 Application topically 2 (two) times a day. 10/29/20 Active clindamycin-benzoy l peroxide ER (DUAC) gel Apply 1 Application topically daily. 10/29/20 Active senna (SENOKOT) 8.6 mg tabletIndications: Primary osteoarthritis of left hip Take 2 tablets by mouth 2 (two) times a day. Take while using narcotic pain medications to prevent constipation. Hold for loose stools. This is an over the counter medication. 02/14/20 25 Active Additional Information Patient not taking.Reported on 05/29/2025 ondansetron (ZOFRAN-ODT) 4 MG disintegrating tabletIndications: Primary osteoarthritis of left hip Take 1 tablet (4 mg total) by mouth every 6 (six) hours as needed for nausea. 15 tablet 02/14/20 Active Additional Information Patient not taking.Reported on 05/29/2025 oxyCODONE 5 MG immediate release tablet Take 1-2 tablets (5-10 mg total) by mouth every 4 (four) hours as needed for pain (specific location in comments). Max 6 per day. Partial fill ok. For acute postop pain.Taper pain medications as you are able over the next week by either increasing the time between doses and/or decreasing the number of pills taken at one time. Call MD if you have persistent severe pain requiring a refill or need help to taper your meds. 30 tablet 02/14/20 Active Additional Information Patient not taking.Reported on 05/29/2025 amoxicillin (AMOXIL) 500 MG capsule Take 4 capsules one hour prior to any dental work or procedures. 12 capsule 1 03/15/20 Active Active Problems Problem Noted Date Diagnosed Date Primary osteoarthritis of left hip 02/12/2025 Status post total replacement of left hip 2024 Overview (02/12/2025): Dr. Ansari [facility] 02/12/25 History of total right hip replacement Overview (03/20/2024): S/p T [facility]ORRI 03/19/24 Dr. Beto Marshall [facility] Primary osteoarthritis of right hip 03/19/2024 [...] (06/15/2019 2:24 PM EDT): Patient presented to [facility] on 05/22 with right ankle pain/swelling and [...] for which he has been transferred to [facility]. Ankle and foot xrays with findings concerning for osteo and subcutaneous gas. S/p OR 06/13 with Ortho debridement of his right foot and ankle, with placement of wound vac. OR cultures growing enterobacter, and cultures from OSH 05/24 grew MSSA (records uploaded to [facility]). Since plan will be managed by [...] Encounters Date Type Department Care Team Description 05/29/2025 10:15 AM EDT Office Visit [facility] [address] [facility], [address] [place] [address] Beto Ansari MD Chronic pain of left ankle (Primary Dx) 05/29/2025 8:00 AM EDT - 05/29/2025 11:59 PM EDT Hospital Encounter [facility] - Diagnostic Radiology, [address] [place] [address] [place] [address] Ninoska Howard CNP Discharge Disposition: Home or Self Care 04/16/2025 Orders Only [facility] [address] [facility], [address] [place] [address] Mayra Randle Aftercare following hip joint replacement surgery, unspecified laterality (Primary Dx) from Last 3 Months Immunizations Immunization Administration Dates Next Due Influenza Quadrivalent Preservative [...] Sign Reading Time Taken Comments Blood Pressure 145/78 02/13/2025 7:45 AM EDT Pulse 79 02/13/2025 7:45 AM EDT Temperature 36.5 C (97.7 F) 02/13/2025 7:45 AM EDT Respiratory Rate 20 02/13/2025 7:45 AM EDT Oxygen Saturation 96% 02/13/2025 7:45 AM EDT Inhaled Oxygen Concentration - - Weight 96.4 kg (212 lb 9.6 oz) 01/31/2025 9:33 A M EDT Height 172.7 cm (5' 8 ) 01/31/2025 9:33 AM EDT Body Mass Index 32.33 01/31/2025 9:33 AM EDT Plan of Treatment Health Maintenance Due Date Last Done Comments Adult Td,Tdap Booster 1965 HEPATITIS C SCREENING 1984 HIV ONE-TIME SCREENING (18-65 YEARS) 1984 COLOGUARD 2011 COLONOSCOPY 2011 COLORECTAL CANCER SCREENING 2011 FIT TEST 2011 FOBT 2011 SIGMOIDOSCOPY 2011 VIRTUAL COLONOSCOPY 2011 ZOSTER VACCINES (1 of 2) 2016 DIABETIC EYE EXAM 06/12/2019 DEPRESSION SCREENING 11/23/2024 11/23/2023 INFLUENZA VACCINE (#1) 2025 3, 08/06/2022, 09/20/2021, Additional history exists COVID-19 VACCINE ( season) 2025 09/20/2021, 01/25/2021, 01/04/2021 BLOOD PRESSURE 08/02/2025 01/31/2025 HEMOGLOBIN A1C 08/02/2025 01/31/2025, 10/31, 10/18/2024, Additional history exists PNEUMOCOCCAL VACCINES (50+ years) (3 of 3 - PCV20 or PCV21) 08/14/2025 08/14/2020, 08/01/2019 CREATININE LEVEL 02/13/2026 02/13/2025, 12/2024, 10/18/2024, Additional history exists POTASSIUM LEVEL 02/13/2026 02/13/2025, 0412/2024, 10/18/2024, Additional history exists SMOKING STATUS SCREENING (Every 5 Years) 01/31/2030 01/31/2025 HEPATITIS A VACCINES Aged Out No long er eligible based on patient's age to complete this topic HIB VACCINES Aged Out No longer eligi ble based on patient's age to complete this topic MENINGOCOCCAL VACCINES (ACWY) Aged Out No longer eligible based on patient's age to complete this topic MENINGOCOCCAL VACCINES (B) Aged Out N o longer eligible based on patient's age to complete this topic Medical Devices Implanted Type Area Email Designer Device Identifier Shelf Expiration Date Model / Serial / Lot Dressing Wound 4.0x10in Bilayer Matrix Cross Linked Bovine Tendon Collagen Silicone - [id number] Implanted:Qty: 1 on 06/18/2019 by Gideon Blakely MD at [facility] [place] Right: Foot [employer] ETTA 09/29/2020 [id number] / / [id number] Screw Bone 25x6.5mm Cortical Acetabular Self Tapping Cable Ready Trauma Trilogy Hip 16a - [id number] Implanted:Qty: 1 on 03/19/2024 by Beto Ansari MD at [facility] [employer] Right: Acetabulum GURDEEP BIOMET [id number] 1 01/29/2033 [id number] / / [id number] Description:The implant type , laterality (when applicable), size, and expiration date have been visually and verbally confirmed by the Surgeon, Circulating RN and Scrub Personnel. Screw Bone 20x6.5mm Cortical Acetabular Self Tapping Cable Ready Trauma Trilogy Hip 16a - [id number] Implanted:Qty: 1 on 03/19/2024 by Beto Ansari MD at [facility] Right: Acetabulum GURDEEP [employer]ET [id number] 1 04/22/2033 [id number] / / [id number] Description:The implant type , laterality (when applicable), size, and expiration date have been visually and verbally confirmed by the Surgeon, Circulating RN and Scrub Personnel. Screw Bone 25x6.5mm Cortical Acetabular Self Tapping Cable Ready Trauma Trilogy Hip 16a - [id number] Implanted:Qty: 1 on 02/12/2025 by Beto Ansari MD at [facility] Left: Acetabulum G[employer]EP [employer] [id number] 1 05/10/2034 [id number] / / [id number] Description:The implant type , laterality (when applicable), size, and expiration date have been visually and verbally confirmed by the Surgeon, Circulating RN and Scrub Personnel. Screw Bone 25x6.5mm Cortical Acetabular Self Tapping Cable Ready Trauma Trilogy Hip 16a - [id number] Implanted:Qty: 1 on 02/12/2025 by Beto Ansari MD at [facility] Left: Acetabulum [employer]EP [employer] [id number] 1 12/18/2033 [id number] / / [id number] Description:The implant type , laterality (when applicable), size, and expiration date have been visually and verbally confirmed by the Surgeon, Circulating RN and Scrub Personnel. Dressing Wound 2.0 Delmis Skin Replacement Bilayer Matrix - [id number] Implanted:Qty: 1 on 07/27/2019 by Gideon Blakely MD at [facility] Right: Foot [employer] ETTA 01/28/2021 [id number] / / [id number] [place] Suture 4.75mm Healicoil Regensorb With 2 #2 Ultrabraid - [id number] Implanted:Qty: 1 on 12/30/2022 by Jassi King DO at [facility] Right: Shoulder ZAIDI 08/06/2025 [id number] / / [id number] Ashwood Suture 4.75mm Healicoil Regensorb With 2 #2 Ultrabraid - [id number] Implanted:Qty: 1 on 12/30/2022 by Jassi King DO at [facility] Right: Shoulder ZAIDI 07/15/2025 [id number] / / [id number] Ashwood Suture 4.5mm Arthroscopy Reelx Stt Peek Ss Core Knotless Shapr Tip Expandable Bx/5ea - [id number] Implanted:Qty: 4 on 12/30/2022 by Jassi King DO at [facility] Right: Shoulder [employer]ABRIEL ENDOSCOPY 09/06/2024 [id number] / / [id number] Hip Shell 52mm Acetabular Multihole G7 - [id number] Implanted:Qty: 1 on 03/19/2024 by Beto Ansari MD at [facility] Right: Acetabulum [employer] 09/19/2033 [id number] / / [id number] Description:The implant type , laterality (when applicable), size, and expiration date have been visually and verbally confirmed by the Surgeon, Circulating RN and Scrub Personnel. Hip Liner 36mm E Acetabular Neutral G7 Vit E - [id number] Implanted:Qty: 1 on 03/19/2024 by Beto Ansari MD at [facility] Right: Acetabulum [employer]EP [employer] [id number] 12/19/2028 [id number] / / [id number] Description:The implant type , laterality (when applicable), size, and expiration date have been visually and verbally confirmed by the Surgeon, Circulating RN and Scrub Personnel. Hip Stem Size 12 Taperloc Pps Coated Complete Microplasty High Offset - [id number] Implanted:Qty: 1 on 03/19/2024 by Beto Ansari MD at [facility] Right: Acetabulum [employer] [id number] 07/28/2033 [id number] / / [id number] Description:The implant type , laterality (when applicable), size, and expiration date have been visually and verbally confirmed by the Surgeon, Circulating RN and Scrub Personnel. Femoral Head 36mm Plus 3mm Type 1 Taper Hip Biolox Delta Modular Ceramic - [id number] Implanted:Qty: 1 on 03/19/2024 by Beto Ansari MD at [facility] Right: Acetabulum [employer]EP [employer] [id number] 08/15/2033 [id number] / / [id number] Description:The implant type , laterality (when applicable), size, and expiration date have been visually and verbally confirmed by the Surgeon, Circulating RN and Scrub Personnel. G7 Acetabular [place], 50mm Shell Liner Size D Implanted:Qty: 1 on 02/12/2025 by Beto Ansari MD at [facility] Left: Acetabulum G[employer]EP BI[employer]ET [id number] 11/03/2034 [id number] / / [id number] Description:The implant type , laterality (when applicable), size, and expiration date have been visually and verbally confirmed by the Surgeon, Circulating RN and Scrub Personnel. Hip Liner 36mm D Acetabular Neutral G7 Vit E - [id number] Implanted:Qty: 1 on 02/12/2025 by Beto Ansari MD at [facility] Left: Acetabulum [employer]EP [employer]ET [id number] 12/02/2029 [id number] / / [id number] Description:The implant type , laterality (when applicable), size, and expiration date have been visually and verbally confirmed by the Surgeon, Circulating RN and Scrub Personnel. Hip 36mm 0 Biolox Delta Ceramic 12/14 Taper Neutral - [id number] Implanted:Qty: 1 on 02/12/2025 by Beto Ansari MD at [facility] Left: Acetabulum [employer]EP [employer]ET [id number] 11/09/2034 [id number] / / [id number] Description:The implant type , laterality (when applicable), size, and expiration date have been visually and verbally confirmed by the Surgeon, Circulating RN and Scrub Personnel. 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 Narrative 05/29/2025 9:49 AM EDT XR HIP 2 VW LEFT PLUS PELVIS Referring clinician's provided indication for this examination in [facility]: Hip replacement, asymptomatic, follow up COMPARISON: XR HIP 2 VW LEFT PLUS PELVIS FINDINGS: Pelvis: Incomplete visualization of the pelvis. Right hip arthroplasty. Left hip: Total hip arthroplasty. Hardware is intact and in anatomic position. No periprosthetic lucency or asymmetric liner wear. No periprosthetic fracture. Procedure Note Maxwell Julien MD - 05/29/2025 XR HIP 2 VW LEFT PLUS PELVIS Referring clinician's provided indication for this examination in [facility]:Hip replacement, asymptomatic, follow up COMPARISON: XR HIP 2 VW LEFT PLUS PELVIS FINDINGS: Pelvis: Incomplete visualization of the pelvis. Right hip arthroplasty. Left hip: Total hip arthroplasty. Hardware is intact and in anatomicposition. No periprosthetic lucency or asymmetric liner wear. Noperiprosthetic fracture. IMPRESSION: Left total hip arthroplasty, no complication. us Ninoska Howard CLASSROOM INSTRUCTIONAL AIDE IMG XR PELVIS Fi nal Result * (ABNORMAL) Basic metabolic panel (02/13/2025 4:03 AM EDT) SODIUM 139 136 - 145 mmol/L [facility] CHLORIDE 102 95 - 106 mmol/L [facility] POTASSIUM 4.0 3.5 - 5.2 mmol/L [facility] CO2 27 20 - 31 mmol/L [facility] BUN 23 9 - 23 mg/dL [facility] CREATININE 1.25 0.50 - 1.30 mg/dL [facility] GLUCOSE 168(H) 74 - 106 mg/dL [facility] CALCIUM 8.7 8.7 - 10.4 mg/dL [facility] EGFR 67 >60 mL/min/1.7 3m2 [facility] Comment:Estimated glomerular filtration rate calculated using the CKD-EPI refit equation. ANION GAP 10 3 - 17 mmol/L [facility] Blood 02/13/2025 4:03 AM EDT 02/13/2025 6:17 AM EDT us Aaron Arvizu MD LAB BLOOD ORDERABLES Fi nal Result Performing Organization Address [facility]/ZIP Co de Phone Number [facility] [address] [place] [address] * (ABNORMAL) Hemoglobin A1c (01/31/2025 9:49 AM EDT) HEMOGLOBIN A1C 6.2(H) 4.3 - 5.6 % [facility] Comment: Normal 4.3-5.6% Prediabetes 5.7-6.4% Diagnostic for diabetes >6.5% CALC MEAN BLD GLUC 131 mg/dL [facility] 01/31/2025 9:49 AM EDT 01/31/2025 10:27 AM EDT us Bridget Root CNP LAB BLOOD ORDERABLES Final Result [facility] [address] [place] [address] from Last 3 Months or Most Recently Relevant to Health Maintenance Insurance [employer] PLUS PPO [employer] PLUS PPO [employer] PLUS PPO [employer] PLUS PPO [employer] PLUS PPO [employer] PLUS PPO [employer] GIC PLUS PPO [employer] PLUS PPO [employer] PLUS PPO WORKERS COMPENSATION Advance Directives For more information, please contact: [phone] (9AM - 5PM [facility], Tuesday-Tuesday) Documents on File Type Date Recorded Patient Film Processor Expl anation Healthcare Proxy 06/13/2019 * Full Code (Presumed) (Latest Code Status on File) Date Activated Date Inactivated Comments 08/02/2019 5:22 PM 08/08/2019 2:17 PM * Full Code (Presumed) Date Activated Date Inactivated Comments 07/27/2019 10:00 AM 08/01/2019 4:12 PM * Full Code (Presumed) Date Activated Date Inactivated Comments 06/12/2019 6:55 PM 06/19/2019 6:10 PM Care Teams Robotic Technician Relationship Specialty Start Date End Date Rita Wang PA [address] [place] [address] [address] [place] [address] PCP - General 10/25/24 Additional Source Comments The information contained in this document represents components of the legal health record. It is not the complete legal health record.[facility]
--- OUTSIDE RECORDS SUMMARY | 2025-07-11 18:37 | XMS_ITS | Encounter Summary ---
Author Organization [facility] Address [address] [facility] [address] [place] [address] Phone Care Team Providers Care Head Piece Assembler Name Role Phone Jw Humphrey MD Primary Care Provider +1- [phone] Rita Wang Primary Care Provider + Encounter Details Date Type Department Care Team (Late st Contact Info) Description 12/15/[address] [facility] Department of Orthopaedic Surgery, Arthroplasty Service [address] [facility], 3rd [address], [address] [place] [address] Beto Ansari MD [address] [facility] [address] [place] [address] [email or web address] Social History Tobacco Use Types Packs/Day [...] on filedocumented in this encounter Care Teams Head Piece Assembler Relationship Specialty Start Date End Date Jw Humphrey MD [address] [place] [address] PCP - General Internal Medicine 09/27/23 10/24/24 Rita Wang PA [address] [place] [address] PCP - General 10/25/24 documented as of this encounter Additional Source Comments The information contained in this document represents components of the legal health record. It is not the complete legal health record.[facility]
--- OUTSIDE RECORDS SUMMARY | 2025-07-11 18:37 | XMS_ITS | Encounter Summary ---
Author Organization [facility] Address [address] [address] [place] [address] Phone Care Team Providers Care Pickle Sorter Name Role Phone Jw Humphrey MD Primary Care Provider +1- [phone] Rita Wang Primary Care Provider + Encounter Details Date Type Department Care Team (Late st Contact Info) Description 03/30/2024 Telephone [facility] Department of Orthopaedic Surgery, Arthroplasty Service [address] [facility], 3rd [address], [address] [place] [address] Beto Ansari MD [address] [facility] [address] [place] [address] [email or web address] Social History Tobacco Use Types Packs/Day Years [...] on filedocumented in this encounter Care Teams Pickle Sorter Relationship Specialty Start Date End Date Jw Humphrey MD [address] [place] [address] PCP - General Internal Medicine 09/27/23 10/24/24 Rita Wang PA [address] [place] [address] PCP - General 10/25/24 documented as of this encounter Additional Source Comments The information contained in this document represents components of the legal health record. It is not the complete legal health record.[facility]
--- OUTSIDE RECORDS SUMMARY | 2025-07-11 18:37 | XMS_ITS | Encounter Summary ---
Author Organization [facility] Address [address] [facility] [address] [place] [address] Phone Care Team Providers Care Outside Solar Sales Consultant Name Role Phone Rtia Wang Primary Care Provider + Encounter Details Date Type Department Care Team (Late st Contact Info) Description 02/12/2025 Procedure Pass [facility] PERIOPERATIVE DEPT [address] [place] [address] Social History Tobacco Use Types Packs/Day Years [...] on filedocumented in this encounter Care Teams Outside Solar Sales Consultant Relationship Specialty Start Date End Date Rita Wang PA [address] [facility] [address] [place] [address] PCP - General 10/25/24 documented as of this encounter Additional Source Comments The information contained in this document represents components of the legal health record. It is not the complete legal health record.[facility]
--- OUTSIDE RECORDS SUMMARY | 2025-07-11 18:37 | XMS_ITS | Encounter Summary ---
Author Organization [facility] Address [address] [facility] [address] [place] [address] Phone Care Team Providers Care Aquaculture Director Name Role Phone Rita Wang Primary Care Provider + Encounter Details Date Type Department Care Team ([facility] st Contact Info) Description 01/31/2025 Transcribe Orders [facility] LAB SPECIMEN [address] [place] [address] Bridget Root, BATT MACHINE OPERATOR [address] [facility] [address] [place] [address] [email or web address] Social History Tobacco Use Types Packs/Day Years [...] on filedocumented in this encounter Care Teams Aquaculture Director Relationship Specialty Start Date End Date Rita Wang PA [address] [place] [address] PCP - General 10/25/24 documented as of this encounter Additional Source Comments The information contained in this document represents components of the legal health record. It is not the complete legal health record.[facility]
--- OUTSIDE RECORDS SUMMARY | 2025-07-11 18:37 | XMS_ITS | Encounter Summary ---
Author Organization [facility] Address [address] [facility] [address] [place] [address] Phone Care Team Providers Care Sheet Metal Worker Name Role Phone Jw Humphrey MD Primary Care Provider +1- [phone] Jw Humphrey MD Primary Care Provider +1- [phone] Rita Wang Primary Care Provider + Encounter Details Date Type Department Care Team (Late st Contact Info) Description 06/13/2019 Procedure Pass [facility] [address] [place] [phone] Social History Tobacco Use Types Packs/Day Years [...] documented as of this encounter Care Teams Sheet Metal Worker Relationship Specialty Start Date End Date Jw Humphrey MD PCP - General Internal Medicine 06/10/19 09/26/23 Jw Humphrey MD [address] [place] [address] PCP - General Internal Medicine 09/27/23 10/24/24 Rita Wang PA [address] [place] [address] PCP - General 10/25/24 documented as of this encounter Additional Source Comments The information contained in this document represents components of the legal health record. It is not the complete legal health record.[facility]
--- OUTSIDE RECORDS SUMMARY | 2025-07-11 18:37 | XMS_ITS | Encounter Summary ---
Author Organization [facility] Address [address] [facility] [address] [place] [address] Phone Care Team Providers Care Zigzag Machine Operator Name Role Phone Jw Humphrey MD Primary Care Provider +1- [phone] Rita Wang Primary Care Provider + Encounter Details Date Type Department Care Team (Late st Contact Info) Description 03/19/2024 Procedure Pass [facility] PERIOPERATIVE DEPT [address] [place] [address] Social History Tobacco Use Types Packs/Day Years [...] on filedocumented in this encounter Care Teams Zigzag Machine Operator Relationship Specialty Start Date End Date Jw Humphrey MD [address] [place] [address] PCP - General Internal Medicine 09/27/23 10/24/24 Rita Wang PA [address] [place] [address] PCP - General 10/25/24 documented as of this encounter Additional Source Comments The information contained in this document represents components of the legal health record. It is not the complete legal health record.[facility]
--- OUTSIDE RECORDS SUMMARY | 2025-07-11 18:37 | XMS_ITS | Encounter Summary ---
Author Organization [facility] Address [address] [facility] [address] [place] [address] Phone Care Team Providers Care Pit Crew Support Worker Name Role Phone Jw Humphrey MD Primary Care Provider +1- [phone] Rita Wang Primary Care Provider + Encounter Details Date Type Department Care Team (Late st Contact Info) Description 02/15/2024 Transcribe Orders [facility] [address] [place] [address] Bridget Root CNP [address] [facility] [address] [place] [address] [email or web address] Social History Tobacco Use Types Packs/Day Years [...] on filedocumented in this encounter Care Teams Pit Crew Support Worker Relationship Specialty Start Date End Date Jw Humphrey MD [address] [place] [address] PCP - General Internal Medicine 09/27/23 10/24/24 Rita Wang PA [address] [place] [address] PCP - General 10/25/24 documented as of this encounter Additional Source Comments The information contained in this document represents components of the legal health record. It is not the complete legal health record.[facility]
--- OUTSIDE RECORDS SUMMARY | 2025-07-11 18:37 | XMS_ITS | Encounter Summary ---
Author Organization [facility] Address [address] [facility] [address] [place] [address] Phone Care Team Providers Care Railway Switch Operator Name Role Phone Jw Humphrey MD Primary Care Provider +1- [phone] Rita Wang Primary Care Provider + Encounter Details Date Type Department Care Team (Late st Contact Info) Description 11/16/2023 Ancillary Orders [facility] Department of Orthopaedic Surgery, Foot & Ankle Service [address] [facility] [place] [address] Beto Ansari MD [address] [facility], [facility] [address] [place] [address] [email or web address] Pain (Primary Dx) Social History Tobacco Use [...] clinician's provided indication for this examination in [facility]: Pain COMPARISON: XR HIPS 2+ VW EA [...] clinician's provided indication for this examination in [facility]:Pain COMPARISON: XR HIPS 2+ VW EA BILAT PLUS PELVIS FINDINGS: Lower pelvis: No displaced fracture. Intact sacroiliac joints and pubicsymphysis. Left Hip: Moderate degenerative changes, similar to prior. Right Hip: Moderate to severe degenerative changes with prominentsubchondral cysts in the acetabulum, minimally progressed since 2019. IMPRESSION: Bilateral hip osteoarthritis, right worse than left. Right hip findingsare minimally progressed since 2019. us Beto Ansari MD IMG XR PELVIS Final Re sult documented in this encounter Visit Diagnoses Diagnosis Pain Generalized pain Pain- Primary Generalized pain documented in this encounter Care Teams Railway Switch Operator Relationship Specialty Start Date End Date Jw Humphrey MD [address] [place] [address] PCP - General Internal Medicine 09/27/23 10/24/24 Rita Wang PA [address] [place] [address] PCP - General 10/25/24 documented as of this encounter Additional Source Comments The information contained in this document represents components of the legal health record. It is not the complete legal health record.[facility]
--- OUTSIDE RECORDS SUMMARY | 2025-07-11 18:37 | XMS_ITS | Encounter Summary ---
Author Organization [facility] Address [address] [facility] [address] [place] [address] Phone Care Team Providers Care Associate Name Role Phone Jw Humphrey MD Primary Care Provider +1- [phone] Jw Humphrey MD Primary Care Provider +1- [phone] Rita Wang Primary Care Provider + Encounter Details Date Type Department Care Team (Late st Contact Info) Description 06/18/2019 Procedure Pass [facility] [address] [place] [phone] Social History Tobacco Use Types Packs/Day Years [...] documented as of this encounter Care Teams Associate Relationship Specialty Start Date End Date Jw Humphrey MD PCP - General Internal Medicine 06/10/19 09/26/23 Jw Humphrey MD [address] [place] [address] PCP - General Internal Medicine 09/27/23 10/24/24 Rita Wang PA [address] [place] [address] PCP - General 10/25/24 documented as of this encounter Additional Source Comments The information contained in this document represents components of the legal health record. It is not the complete legal health record.[facility]
--- OUTSIDE RECORDS SUMMARY | 2025-07-11 18:37 | XMS_ITS | Encounter Summary ---
Author Organization [facility] Address [address] [facility] [address] [place] [address] Phone Care Team Providers Care Wage Conciliator Name Role Phone Jw Humphrey MD Primary Care Provider +1- [phone] Jw Humphrey MD Primary Care Provider +1- [phone] Rita Wang Primary Care Provider + Encounter Details Date Type Department Care Team (Late st Contact Info) Description 11/25/2022 Procedure Pass [address] [place] [address] Social History Tobacco Use Types Packs/Day Years [...] Onset Date Last Indicated Resolved Time MDR-GN Comment:8/14/19 wound Enterobacter R to ceftriaxone 06/15/2019 06/15/2019 05/27/2023 1:22 AM E DT VRE 08/16/2019 08/16/2019 12/15/2022 1:26 AM EST documented as of this encounter Care Teams Wage Conciliator Relationship Specialty Start Date End Date Jw Humphrey MD PCP - General Internal Medicine 06/10/19 09/26/23 Jw Humphrey MD [address] [place] [address] PCP - General Internal Medicine 09/27/23 10/24/24 Rita Wang PA [address] [place] [address] PCP - General 10/25/24 documented as of this encounter Additional Source Comments The information contained in this document represents components of the legal health record. It is not the complete legal health record.[facility]
--- OUTSIDE RECORDS SUMMARY | 2025-07-11 18:37 | XMS_ITS | Patient Health Record ---
Author Organization [facility] Address [address] [facility] [place] [address] Care Team Providers Care Laborer Tan [place] Name Role Phone Jw Humphrey MA Primary Care Provider UnavailChico Santacruz Unavailable [phone] Reason For Referral No Information Medications Medication [...] W/U Status Risk Notes Problem Foot ulcer (30074445) Ulcer of Other Part of Foot (707.15) Active confirmed Problem Pain in limb (13097305) Pain in Limb (729.5) Active confirmed Problem Contusion of toe (13604600) Contusion of toe (924.3) Active confirmed Problem Abscess /Cellulitis (682.7) Active confirmed Plan Of Treatment Pending Test Test Name Order Date [id number] SKIN/TISSUE 03/02/2012 Insurance Providers Payer Name Payer Address Payer Phone Subscriber Number Group Number Insured Name Patient Relationship to Insured Coverage Start Date Coverage End Date [place] ([facility]) [address] [place] [id number] [phone] [id number] Farhan Storey Self - patient is the insured Medical (General) History Medical History History ICD Code chicken pox depression Surgical History Surgery Date(Month/Year) carpal tunnel surgery ankle surgery stomach surgery
== END 2025-07-11 15:52 | disposition home or self-care (01) ==
LOC: HO.HKAS 15:26
PROVIDERS: PCP Physician Assistant; Visit Provider Internal Medicine Nephrology
DX: I10 Essential (primary) hypertension (principal); N18.31 Chronic kidney disease, stage 3a
CPT/HCPCS: 99214

== ENCOUNTER 2025-07-24 09:13 | Outpatient (AMB) | payer OTHER, SELFPAY ==
--- OUTSIDE RECORDS SUMMARY | 2003-08-16 | XMS_ITS | Encounter Summary ---
Author Organization [facility] Address [address] [place] [address] Phone Care Team Providers Care Web Development Director Name Role Phone Unavailable Primary Care Provider Unavailabl e Encounter Details Date Type Department Care Team (Late st Contact Info) Description 08/16/2003 Hospital Encounter [facility] [address] [place] [address] Jaja Hudson, PAINTER PLATE [address] [place] [address] [email or web address] Social History Tobacco Use Types Packs/Day Years Used Date Smoking Tobacco: Former Cigarettes 0.5 27.9 0 06/12/1991 - 05/22/2019 Smokeless Tobacco: Former Chew Quit: 06/12/1989 Comments:rough estimate star t date Alcohol Use Standard Drinks/Week Comments Never 0 (1 standard drink = 0.6 oz pur e alcohol) Education Answer Date Recorded Are you interested in more education? Not on christian e 02/25/2023 Are you concerned about learning? Not on file 02/25/2023 No 02/25/2023 No 02/25/2023 Digital Access Answer Date Recorded No 03/29/2023 No 03/29/2023 Reliable internet access at home? Not on file 03/29/2023 Device with a working camera? Not on file Intimate Partner Violence Answer Date R ecorded Are you denied basic needs s uch as food, clothing, or medical care? No 02/12/2025 Worried food would run out Not on file 02/12 Are you denied basic needs s uch as food, clothing, or medical care? No 02/12/2025 Relationship Control Not on file 02/12/2025 Sex and Gender Information Value Date Recorded Sex Assigned at Male 02/07/2020 11:18 AM EDT Legal Sex Male 12:56 PM EDT Gender Identity Male 02/07/2020 11:18 AM EDT Sexual Orientation Straight 02/07/2020 11 :18 AM EDT documented as of this encounter Functional Status * Calculated C-SSRS Risk Score (Lifetime/Recent) Answer Date of Assessment Author No Risk Indicated 12/30/2022 7:34 AM Janny Mcbride RN * [place] Suicide Severity Rating Scale (Screener/Recent Self-Report) Question Answer Date of Assessment Author 2. Non-Specific Active Suici zander Thoughts (Past 1 Month) No 12/30/2022 7:34 AM Josee Lombardo RN documented as of this encounter Plan of Treatment Not on file documented as of this encounter Procedures Procedure Name Priority Date/Time Associated Diagnosis Comments XR LOWER EXTREMITY OUTSIDE (NO INTERPRETATION) Routine 08/16/2003 12:00 AM EDT documented in this encounter Results * XR Lower Extremity Outside (No Interpretation) (08/16/2003 12:00 AM EDT) Narrative [facility] - 06/15/2019 9:28 AM EDT This study is for PACS storage only and not for interpretation. 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 It is not the complete legal health record.[facility]
--- NOTE | 2025-07-24 09:14 | MHC.OFFVIS ---
Intake Visit Reasons: labs follow up Intake Note: Patient is present for follow up Urology Medication:TADALAFIL,TESTOSTERONE, Tamsulosin Antibiotic Allergy:NONE Blood Thinner:NONE Labs done 05/28/25 : PSA 0.78, Total Testosterone : 177 Insulation Sprayer Required: No Accompanied by: Self / Same As Patient Allergies Sulfa (Sulfonamide Antibiotics) Allergy (Verified 07/24/25 09:15) Unknown HPI Comments Details: Farhan is a pleasant male. He is a patient of Dr. Humphrey. He is seen for the following urologic conditions - hypogonadism - lower urinary tract symptoms - retrograde ejaculation - erectile dysfunction Telemedicine Evaluation 15 min Consultation [facility] Ellen Video attempted Lab work not done Labs today and 6 months Rx done Hypogonadism: 0.5 cc subcu weekly T is at higher end of range Reduced to 0.4 cc weekly He presents today for further evaluation and followup of his hypogonadism - stable lab work - doing well otherwise. Initial symptoms include erectile dysfunction Yes decreased libido Yes change in mood/depression Yes in muscle size/strength Yes increased fatigue/malaise Yes increased abdominal fat No tender breasts/gynecomastia No hair loss No osteopenia No The onset of symptoms has been gradual. Associate conditions include obstructive sleep apnea No CAD No diabetes Yes - with retrograde ejaculation dyslipidemia Yes hypertension Yes obesity No stress - financial, family, employment No heavy alcohol or illicit drug use No He has been taking antidepressants, anxiolytics, antipsychotics. Laboratory results baseline 03/16 T 248 01/15 T 309 02/15 T 520, PSA 0.5, 08/17 T 940 PS A0.6 02/16 T 740 PSA 0.6, 08/18 806, 0.5 04/19 897 PSA 1.4., 04/21 1300 1.6 - 02/20 P 1.2, T150, 09/22 T 229 Current therapy includes injectable exogenous testosterone 0.5 mg weekly. Response to therapy has been no change. Prior therapy includes topical, testosterone, minimal effect. Therapeutic plan Six months. Review [facility] Medical History (Updated 05/28/25 @ 11:33 by Mohamud Wesley MD) Benign enlargement of prostate Anxiety and depression Back pain of lumbar region with sciatica Spondylarthrosis HLD (hyperlipidemia) Erectile dysfunction Peripheral neuropathy Osteoarthritis Cellulitis and abscess of foot Rosacea Vitamin D deficiency Type 2 diabetes mellitus with microalbuminuria, without long-term current use of insulin Right ankle pain Obesity Chronic low back pain Bilateral hip pain Hypogonadism in male Insomnia Anxiety disorder GERD (gastroesophageal reflux disease) Asthma Diabetes mellitus, type II HTN (hypertension) Erectile disorder due to medical condition in male Urgency-frequency syndrome Bladder outlet obstruction Low testosterone Surgical History History of total right hip arthroplasty History of ankle surgery History of surgery Family History Maternal Uncle Diabetes mellitus Social History Alcohol intake: never Patient Tobacco Use Status: Former Tobacco user Review of Systems Const All systems reviewed & are unremarkable except as noted in HPI and below Reports no additional complaints Resp Reports no additional complaints GI Reports no additional complaints Reports as per HPI Musc Reports no additional complaints Physical Exam Telemedicine evaluation Appropriate responses Regular breathing rate and rhythm HEENT Head: Yes normal to inspection Ears: hearing grossly normal bilaterally Eyes General: appearance normal, both eyes and all related structures Neck Neck: Yes normal visual inspection Chest Chest palpation & inspection: normal inspection of the chest Resp Effort & Inspection: normal respiratory effort and able to speak in complete sentences Telehealth Telehealth Telehealth Platform: [facility] Location of provider rendering services: practice address Location of patient: address on file Patient Identification confirmed using: Name, : Yes Telehealth method: video Patient verbally consented to treatment: Yes Patient verbally consented to billing insurance company: Yes Patient informed of any privacy concerns related to visit: Yes Assessment & Plan Assessment & Plan (1) Erectile dysfunction associated with type 2 diabetes mellitus: Code(s): E11.69 - Type 2 diabetes mellitus with other specified complication; N52.1 - Erectile dysfunction due to diseases classified elsewhere Category: Medical (2) Low testosterone in male: Code(s): R79.89 - Other specified abnormal findings of blood chemistry Category: Medical Plan Adjust dosing Six-month follow-up Orders: Orders Hematocrit 5 Months R7. - Other specified abnormal findings of blood chemistry Testosterone, Total 5 Months R7. - Other specified abnormal findings of blood chemistry Prostate Specific Antigen 5 Months R7. - Other specified abnormal findings of blood chemistry Medications: Changed From testosterone cypionate (Depo-Testosterone) Two injections from each vial 100 mg (0.5 mL) subcut QWEEK 4 weeks 2 mL 1RF [id number] To testosterone cypionate (Depo-Testosterone) Dispose of excess from each vial 140 mg (0.7 mL) subcut QWEEK 4 mL 5RF 4 weeks [id number] Patient Instructions: This note is constructed using voice recognition software. While every effort has been made to ensure accuracy equal employment opportunity officer errors may have been included. Imaging studies, laboratory and physical exam results were discussed and reviewed in detail. No major barriers to patient understanding were identified. An opportunity to ask questions regarding the treatment plan was provided. All questions were answered. The patient expressed understanding and agreement with the above treatment plan. The patient is aware they should contact our office by phone for worsening of their current condition or the appearance of new urologic symptoms. Compliance is encouraged with any medications and followup testing that is ordered. It is a privilege to participate in the urologic care of your patient. If you have any questions or concerns regarding treatment for the above conditions, or other urologic issues, please do not hesitate to contact me. The office telephone contact is [phone]. Sincerely, Dr Abhishek Angel MD, [facility] - Urology Compassionate Specialist Care for the Genitourinary System Coding Level of Care Code Tele Est Pt Level 4 (80316) Complex EM visit Add On G2211 Diagnoses Erectile dysfunction associated with type 2 diabetes mellitus E11.69; N52.1 Low testosterone in male R79.89
--- OUTSIDE RECORDS SUMMARY | 2025-07-24 10:48 | XMS_ITS | Encounter Summary ---
Author Organization [facility] Address [address] [facility] [address] [place] [address] Phone Care Team Providers Care Parts Clerk Plant Maintenance Name Role Phone Rita Wang Primary Care Provider + Encounter Details Date Type Department Care Team ([facility] st Contact Info) Description 01/31/2025 Transcribe Orders [facility] SPECIMEN [address] [place] [address] Bridget Root, E LEARNING MANAGER [address] [facility] [address] [place] [address] [email or web address] Social History Tobacco [...] on filedocumented in this encounter Care Teams Parts Clerk Plant Maintenance Relationship Specialty Start Date End Date Rita Wang PA [address] [place] [address] PCP - General 10/25/24 documented as of this encounter Additional Source Comments The information contained in this document represents components of the legal health record. It is not the complete legal health record.[facility]
--- OUTSIDE RECORDS SUMMARY | 2025-07-24 10:48 | XMS_ITS | Clinical Summary ---
Author Organization [facility] Address [address] [place] [address] Phone Care Team Providers Care Sheet Catcher Name Role Phone Rita Wang Primary Care [...] left hip 2024 Overview (02/12/2025): Dr. Ansari [facility] 02/12/25 History of total right hip replacement Overview (03/20/2024): S/p T LORRI 03/19/24 Dr. Beto Marshall [facility] Primary osteoarthritis of right hip 03/19/2024 Wound [...] (06/15/2019 2:24 PM EDT): Patient presented to [facility] on 05/22 with right ankle pain/swelling [...] for which he has been transferred to [facility]. Ankle and foot xrays with findings concerning for osteo and subcutaneous gas. S/p OR 06/13 with Ortho debridement of his right foot and ankle, with placement of wound vac. OR cultures growing enterobacter, and cultures from OSH 05/24 grew MSSA (records uploaded to [facility]). Since plan will be managed by [...] Description 05/29/2025 10:15 AM EDT Office Visit [facility] [address] [facility], [address] [place] [address] Beto Ansari MD Chronic pain of left ankle (Primary Dx) 05/29/2025 8:00 AM EDT - 05/29/2025 11:59 PM EDT Hospital Encounter [facility] Imaging - Diagnostic Radiology, [address] [place] [address] [place] [address] Ninoska Howard CNP Discharge Disposition: Home or Self Care from Last 3 Months Immunizations Immunization Administration [...] SCREENING 11/23/2024 11/23/2023 INFLUENZA VACCINE (#1) 2025 , 08/06/2022, 09/20/2021, Additional history exists COVID-19 VACCINE ( season) 2025 09/20/2021, 01/25/2021, 01/04/2021 BLOOD PRESSURE 08/02/2025 01/31/2025 HEMOGLOBIN A1C 08/02/2025 01/31/2025, 10/31, 10/18/2024, Additional history exists PNEUMOCOCCAL VACCINES (50+ years) (3 of 3 - PCV20 or PCV21) 08/14/2025 08/14/2020, 08/01/2019 CREATININE LEVEL 02/13/2026 02/13/2025, 12/2024, 10/18/2024, Additional history exists POTASSIUM LEVEL 02/13/2026 02/13/2025, 04/0 12/2024, 10/18/2024, Additional history exists SMOKING STATUS SCREENING [...] this topic Medical Devices Implanted Type Area Maintenance Operator Device Identifier Shelf Expiration Date Model / Serial / Lot Dressing Wound 4.0x10in Bilayer Matrix Cross Linked Bovine Tendon Collagen Silicone - [id number] Implanted:Qty: 1 on 06/18/2019 by Gideon Blakely MD at [facility] [place] Right: Foot INTEGRA [id number]-transfection ETTA 09/29/2020 [id number] / / [id number] Screw Bone 25x6.5mm Cortical Acetabular Self Tapping Cable Ready Trauma Trilogy Hip 16a - [id number] Implanted:Qty: 1 on 03/19/2024 by Beto Ansari MD at [facility] Right: Acetabulum GURDEEP [employer] [id number] 01/29/2033 [id number] / / [id number] Description:The implant type , laterality (when applicable), size, and expiration date have been visually and verbally confirmed by the Surgeon, Circulating RN and Scrub Personnel. Screw Bone 20x6.5mm Cortical Acetabular Self Tapping Cable Ready Trauma Trilogy Hip 16a - [id number] Implanted:Qty: 1 on 03/19/2024 by Beto Ansari MD at [facility] Right: Acetabulum GURDEEP [employer]ET [id number] 1 04/22/2033 [id number] / / [id number] Description:The implant type , laterality (when applicable), size, and expiration date have been visually and verbally confirmed by the Surgeon, Circulating RN and Scrub Personnel. Screw Bone 25x6.5mm Cortical Acetabular Self Tapping Cable Ready Trauma Trilogy Hip 16a - [id number] Implanted:Qty: 1 on 02/12/2025 by Beto Ansari MD at [facility] Left: Acetabulum GURDEEP [employer]ET [id number] 05/10/2034 [id number] / / [id number] Description:The implant type , laterality (when applicable), size, and expiration date have been visually and verbally confirmed by the Surgeon, Circulating RN and Scrub Personnel. Screw Bone 25x6.5mm Cortical Acetabular Self Tapping Cable Ready Trauma Trilogy Hip 16a - [id number] Implanted:Qty: 1 on 02/12/2025 by Beto Ansari MD at [facility] Left: Acetabulum [employer]EP [employer]ET [id number] 12/18/2033 [id number] / / [id number] Description:The implant type , laterality (when applicable), size, and expiration date have been visually and verbally confirmed by the Surgeon, Circulating RN and Scrub Personnel. Dressing Wound 2.0 Delmis Skin Replacement Bilayer Matrix - [id number] Implanted:Qty: 1 on 07/27/2019 by Gideon Blakely MD at [facility] Right: Foot [employer]TEGRA [employer]CI[employer] ETTA 01/28/2021 [id number] / / [id number] Kaaawa Suture 4.75mm Healicoil Regensorb With 2 #2 Ultrabraid - [id number] Implanted:Qty: 1 on 12/30/2022 by Jassi King DO at [facility] Right: Shoulder DYAN 08/06/2025 [id number] / / [id number] Kaaawa Suture 4.75mm Healicoil Regensorb With 2 #2 Ultrabraid - [id number] Implanted:Qty: 1 on 12/30/2022 by Jassi King DO at [facility] Right: Shoulder ZAIDI 07/15/2025 [id number] / / [id number] Kaaawa Suture 4.5mm Arthroscopy Reelx Stt Peek Ss Core Knotless Shapr Tip Expandable Bx/5ea - [id number] Implanted:Qty: 4 on 12/30/2022 by Jassi King DO at [facility] Right: Shoulder [facility]ABRIEL ENDOSCOPY 09/06/2024 [id number] / / [id number] Hip Shell 52mm Acetabular Multihole G7 - [id number] Implanted:Qty: 1 on 03/19/2024 by Beto Ansari MD at [facility] Right: Acetabulum [employer] 09/19/2033 [id number] / / [id number] Description:The implant type , laterality (when applicable), size, and expiration date have been visually and verbally confirmed by the Surgeon, Circulating RN and Scrub Personnel. Hip Liner 36mm E Acetabular Neutral G7 Vit E - [id number] Implanted:Qty: 1 on 03/19/2024 by Beto Ansari MD at [facility] Right: Acetabulum G[employer]DEEP [employer]ET [id number] 12/19/2028 [id number] / / [id number] Description:The implant type , laterality (when applicable), size, and expiration date have been visually and verbally confirmed by the Surgeon, Circulating RN and Scrub Personnel. Hip Stem Size 12 Taperloc Pps Coated Complete Microplasty High Offset - [id number] Implanted:Qty: 1 on 03/19/2024 by Beto Ansari MD at [facility] Right: Acetabulum [employer] [id number] 07/28/2033 [id number] / / [id number] Description:The implant type , laterality (when applicable), size, and expiration date have been visually and verbally confirmed by the Surgeon, Circulating RN and Scrub Personnel. Femoral Head 36mm Plus 3mm Type 1 Taper Hip Biolox Delta Modular Ceramic - [id number] Implanted:Qty: 1 on 03/19/2024 by Beto Ansari MD at [facility] Right: Acetabulum GURDEEP BIOMET [id number] 08/15/2033 [id number] / / [id number] Description:The implant type , laterality (when applicable), size, and expiration date have been visually and verbally confirmed by the Surgeon, Circulating RN and Scrub Personnel. G7 Acetabular [place], 50mm Shell Liner Size D Implanted:Qty: 1 on 02/12/2025 by Beto Ansari MD at [facility] Left: Acetabulum GURDEEP BIOMET [id number] 11/03/2034 [id number] / / [id number] Description:The implant type , laterality (when applicable), size, and expiration date have been visually and verbally confirmed by the Surgeon, Circulating RN and Scrub Personnel. Hip Liner 36mm D Acetabular Neutral G7 Vit E - [id number] Implanted:Qty: 1 on 02/12/2025 by Beto Ansari MD at [facility] Left: Acetabulum GURDEEP [employer]OMET [id number] 12/02/2029 [id number] / / [id number] Description:The implant type , laterality (when applicable), size, and expiration date have been visually and verbally confirmed by the Surgeon, Circulating RN and Scrub Personnel. Hip 36mm 0 Biolox Delta Ceramic /14 Taper Neutral - [id number] Implanted:Qty: 1 on 02/12/2025 by Beto Ansari MD at [facility] Left: Acetabulum GURDEEP BIOMET [id number] 11/09/2034 [id number] / / [id number] Description:The implant type , laterality (when applicable), [...] clinician's provided indication for this examination in [facility]: Hip replacement, asymptomatic, follow up COMPARISON: [...] clinician's provided indication for this examination in [facility]:Hip replacement, asymptomatic, follow up COMPARISON: XR HIP 2 VW LEFT PLUS PELVIS FINDINGS: Pelvis: Incomplete visualization of the pelvis. Right hip arthroplasty. Left hip: Total hip arthroplasty. Hardware is intact and in anatomicposition. No periprosthetic lucency or asymmetric liner wear. Noperiprosthetic fracture. IMPRESSION: Left total hip arthroplasty, no complication. Ninoska Howard [employer]CISION [employer]ET INSIGHTS IMG XR PELVIS Fi nal Result * (ABNORMAL) Basic metabolic panel (02/13/2025 4:03 AM EDT) SODIUM 139 136 - 145 mmol/L [facility] CHLORIDE 102 95 - 106 mmol/L [facility] POTASSIUM 4.0 3.5 - 5.2 mmol/L [facility] CO2 27 20 - 31 mmol/L [facility] BUN 23 9 - 23 mg/dL [facility] CREATININE 1.25 0.50 - 1.30 mg/dL [facility] GLUCOSE 168(H) 74 - 106 mg/dL [facility] CALCIUM 8.7 8.7 - 10.4 mg/dL [facility] EGFR 67 >60 mL/min/1.7 3m2 [facility] Comment:Estimated glomerular filtration rate calculated using the CKD-EPI refit equation. ANION GAP 10 3 - 17 mmol/L [facility] Blood 02/13/2025 4:03 AM EDT 02/13/2025 6:17 AM EDT us Aaron Arvizu MD LAB BLOOD ORDERABLES Fi nal Result [facility] [address] [place] [address] * (ABNORMAL) Hemoglobin A1c (01/31/2025 9:49 AM EDT) HEMOGLOBIN A1C 6.2(H) 4.3 - 5.6 % [facility] Comment: Normal 4.3-5.6% Prediabetes 5.7-6.4% Diagnostic for diabetes >6.5% CALC MEAN BLD GLUC 131 mg/dL [facility] 01/31/2025 9:49 AM EDT 01/31/2025 10:27 AM EDT us Bridget Root CNP LAB BLOOD ORDERABLES Final Result Performing Organization Address City/[facility]/ZIP Co de Phone Number [facility] [address] [place] [address] from Last 3 Months or Most Recently Relevant to Health Maintenance Insurance [employer] PLUS PPO [facility] [place] [facility] PLUS PPO [email or web address] [facility] PLUS PPO [facility] PLUS PPO [email or web address] [facility] PLUS PPO [employer] PLUS PPO [email or web address] [facility] PLUS PPO [place], [place] [employer] PLUS PPO [place], [place] [employer] PLUS PPO [place], [place] WORKERS COMPENSATION Member Subscriber Plan / Payer (Ef fective 2022-Present) Name:Josué Whitney Relation to Subscriber:Employee Name:JOSUÉ WHITNEY Date of :1965 (Home) Address: [address] [place] [address] Payer ID:Not on file Group ID:F [id number] Type:Indemnity Address: Attn: [facility] Billing [facility]. [facility] [phone] [place] [address] Advance Directives For more information, please contact: [phone] (9AM - 5PM [place], Tuesday-Tuesday) Documents on File Type Date Recorded Patient Sales And Service Associate Expl anation Healthcare Proxy 06/13/2019 * Full Code (Presumed) (Latest Code Status on File) Date Activated Date Inactivated Comments 08/02/2019 5:22 PM 08/08/2019 2:17 PM * Full Code (Presumed) Date Activated Date Inactivated Comments 07/27/2019 10:00 AM 08/01/2019 4:12 PM * Full Code (Presumed) Date Activated Date Inactivated Comments 06/12/2019 6:55 PM 06/19/2019 6:10 PM Care Teams Sheet Catcher Relationship Specialty Start Date End Date Rita Wang PA [address] [address] PCP - General 10/25/24 Additional Source Comments The information contained in this document represents components of the legal health record. It is not the complete legal health record.[facility]
--- OUTSIDE RECORDS SUMMARY | 2025-07-24 10:48 | XMS_ITS | Encounter Summary ---
Author Organization [facility] Address [address] [facility] [address] [place] [address] Phone Care Team Providers Care Salon Professional Name Role Phone Jw Humphrey MD Primary Care Provider +1- [phone] Jw Humphrey MD Primary Care Provider +1- [phone] Rita Wang Primary Care Provider + Encounter Details Date Type Department Care Team (Late st Contact Info) Description 12/30/2022 Procedure Pass [place] Admitting Dept - Virtual Department [address] [place] [address] Social History Tobacco Use Types Packs/Day Years [...] 12/30/2022 7:34 AM Janny Mcbride, RN * [place] Suicide Severity Rating Scale (Screener/Recent Self-Report) Question [...] documented as of this encounter Care Teams Salon Professional Relationship Specialty Start Date End Date Jw Humphrey MD PCP - General Internal Medicine 06/10/19 09/26/23 Jw Humphrey MD [address] [place] [address] PCP - General Internal Medicine 09/27/23 10/24/24 Rita Wang PA [address] [place] [address] PCP - General 10/25/24 documented as of this encounter Additional Source Comments The information contained in this document represents components of the legal health record. It is not the complete legal health record.[facility]
--- OUTSIDE RECORDS SUMMARY | 2025-07-24 10:48 | XMS_ITS | Encounter Summary ---
Author Organization [facility] Address [address] [facility] [address] [place] [address] Phone Care Team Providers Care Can Slider Name Role Phone Jw Humphrey MD Primary Care Provider +1- [phone] Rita Wang Primary Care Provider + Encounter Details Date Type Department Care Team (Late st Contact Info) Description 12/15/2023 Telephone [facility] Department of Orthopaedic Surgery, Arthroplasty Service [address] [facility], 3rd Floor, [address] [place] [address] Beto Ansari MD [address] [facility] [address] [place] [address] [email or web address] Social History Tobacco Use Types Packs/Day Years [...] on filedocumented in this encounter Care Teams Can Slider Relationship Specialty Start Date End Date Jw Humphrey MD [address] [place] [address] PCP - General Internal Medicine 09/27/23 10/24/24 Riat Wang PA [address] [place] [address] PCP - General 10/25/24 documented as of this encounter Additional Source Comments The information contained in this document represents components of the legal health record. It is not the complete legal health record.[facility]
--- OUTSIDE RECORDS SUMMARY | 2025-07-24 10:48 | XMS_ITS | Encounter Summary ---
Author Organization [facility] Address [address] [facility] [address] [place] [address] Phone Care Team Providers Care Permastone Applicator Name Role Phone Jw Humphrey MD Primary Care Provider +1- [phone] Jw Humphrey MD Primary Care Provider +1- [phone] Rita Wang Primary Care Provider + Encounter Details Date Type Department Care Team (Late st Contact Info) Description 06/15/2019 Procedure Pass [facility] [address] [place] [address] Social History Tobacco Use Types Packs/Day Years [...] documented as of this encounter Care Teams Permastone Applicator Relationship Specialty Start Date End Date Jw Humphrey MD PCP - General Internal Medicine 06/10/19 09/26/23 Jw Humphrey MD [address] [place] [address] PCP - General Internal Medicine 09/27/23 10/24/24 Rita Wang PA [address] [place] [address] PCP - General 10/25/24 documented as of this encounter Additional Source Comments The information contained in this document represents components of the legal health record. It is not the complete legal health record.[facility]
--- OUTSIDE RECORDS SUMMARY | 2025-07-24 10:48 | XMS_ITS | Encounter Summary ---
Author Organization [facility] Address [address] [facility] [address] [place] [address] Phone Care Team Providers Care Medical Care Evaluation Specialist Name Role Phone Jw Humphrey MD Primary Care Provider +1- [phone] Rita Wang Primary Care Provider + Encounter Details Date Type Department Care Team (Late st Contact Info) Description 02/15/2024 Transcribe Orders [facility] LAB SPECIMEN [address] [place] [address] Bridget Root CNP [address] [facility] [address] [place] [address] [email or web address] Social History Tobacco Use Types Packs/Day Years [...] on filedocumented in this encounter Care Teams Medical Care Evaluation Specialist Relationship Specialty Start Date End Date Jw Humphrey MD [address] [place] [address] PCP - General Internal Medicine 09/27/23 10/24/24 Rita Wang PA [address] [place] [address] PCP - General 10/25/24 documented as of this encounter Additional Source Comments The information contained in this document represents components of the legal health record. It is not the complete legal health record.[facility]
--- OUTSIDE RECORDS SUMMARY | 2025-07-24 10:48 | XMS_ITS | Encounter Summary ---
Author Organization [facility] Address [address] [facility] [address] [place] [address] Phone Care Team Providers Care Respiratory Supervisor Name Role Phone Jw Humphrey MD Primary Care Provider +1- [phone] Jw Humphrey MD Primary Care Provider +1- [phone] Rita Wang Primary Care Provider + Encounter Details Date Type Department Care Team (Late st Contact Info) Description 06/18/2019 Procedure Pass [facility] [address] [place] [phone] Social History Tobacco Use Types Packs/Day Years [...] documented as of this encounter Care Teams Respiratory Supervisor Relationship Specialty Start Date End Date Jw Humphrey MD PCP - General Internal Medicine 06/10/19 09/26/23 Jw Humphrey MD [address] [place] [address] PCP - General Internal Medicine 09/27/23 10/24/24 Rita Wang PA [address] [place] [address] PCP - General 10/25/24 documented as of this encounter Additional Source Comments The information contained in this document represents components of the legal health record. It is not the complete legal health record.[facility]
--- OUTSIDE RECORDS SUMMARY | 2025-07-24 10:49 | XMS_ITS | Encounter Summary ---
Author Organization [facility] Address [address] [facility] [address] [place] [address] Phone Care Team Providers Care Human Performance Professor Name Role Phone Jw Humphrey MD Primary Care Provider +1- [phone] Jw Humphrey MD Primary Care Provider +1- [phone] Rita Wang Primary Care Provider + Encounter Details Date Type Department Care Team (Late st Contact Info) Description 07/27/2019 Procedure Pass [facility] PER[facility] DEPT [address] [place] [phone] Social History Tobacco Use Types Packs/Day Years [...] documented as of this encounter Care Teams Human Performance Professor Relationship Specialty Start Date End Date Jw Humphrey MD PCP - General Internal Medicine 06/10/19 09/26/23 Jw Humphrey MD [address] [place] [address] PCP - General Internal Medicine 09/27/23 10/24/24 Rita Wang PA [address] [place] [address] PCP - General 10/25/24 documented as of this encounter Additional Source Comments The information contained in this document represents components of the legal health record. It is not the complete legal health record.[facility]
--- OUTSIDE RECORDS SUMMARY | 2025-07-24 10:49 | XMS_ITS | Encounter Summary ---
Author Organization [facility] Address [address] [facility] [address] [place] [address] Phone Care Team Providers Care Regional Medical Director Name Role Phone Jw Humphrey MD Primary Care Provider +1- [phone] Jw Humphrey MD Primary Care Provider +1- [phone] Rita Wang Primary Care Provider + Encounter Details Date Type Department Care Team (Latest Contact Info) Description 08/10/2019 Transcribe Orders [facility] [address] [place] [address] Anatoly White MD [address] [place] [address] [email or web address] Diagnosis unknown (Primary Dx) Social [...] VANCOMYCIN,TROU GH 12.1 10.0 - 20.0 ug/mL [facility] Comment: Pre-dose level 10-20 ug/mL depending on disease severity/organism susceptibility. Blood 08/10/2019 10:0 0 AM EDT 08/10/2019 3:39 PM EDT us Anatoly White MD LAB BLOOD ORDERABLES Final Re sult [facility] [address] [place] [address] documented in this encounter Visit Diagnoses Diagnosis Diagnosis unknown- Primary documented in this encounter Additional Health Concerns Infection Onset Date Last Indicated Resolved Time MDR-GN Comment:06/13/19 wound Enterobacter R to ceftriaxone 06/15/2019 06/15/2019 05/27/2023 1:22 AM E DT VRE 08/16/2019 08/16/2019 12/15/2022 1:26 AM EST documented as of this encounter Care Teams Regional Medical Director Relationship Specialty Start Date End Date Jw Humphrey MD PCP - General Internal Medicine 06/10/19 09/26/23 Jw Humphrey MD [address] [place] [address] PCP - General Internal Medicine 09/27/23 10/24/24 Rita Wang PA [address] [place] [address] PCP - General 10/25/24 documented as of this encounter Additional Source Comments The information contained in this document represents components of the legal health record. It is not the complete legal health record.[facility]
--- OUTSIDE RECORDS SUMMARY | 2025-07-24 10:49 | XMS_ITS | Encounter Summary ---
Author Organization [facility] Address [address] [facility] [address] [place] [address] Phone Care Team Providers Care Fire Lookout Name Role Phone Jw Humphrey MD Primary Care Provider +1- [phone] Jw Humphrey MD Primary Care Provider +1- [phone] Rita Wang Primary Care Provider + Encounter Details Date Type Department Care Team (Late st Contact Info) Description 06/13/2019 Procedure Pass [facility] [address] [place] [phone] Social History Tobacco Use Types Packs/Day Years [...] documented as of this encounter Care Teams Fire Lookout Relationship Specialty Start Date End Date Jw Humphrey MD PCP - General Internal Medicine 06/10/19 09/26/23 Jw Humphrey MD [address] [place] [address] PCP - General Internal Medicine 09/27/23 10/24/24 Rita Wang PA [address] [place] [address] PCP - General 10/25/24 documented as of this encounter Additional Source Comments The information contained in this document represents components of the legal health record. It is not the complete legal health record.[facility]
--- OUTSIDE RECORDS SUMMARY | 2025-07-24 10:49 | XMS_ITS | Patient Health Record ---
Author Organization [facility] Address [address] [facility] [place] [address] Care Team Providers Care Manuscripts Curator Name Role Phone Jw Humphrey MA Primary Care Provider UnavailChico Santacruz Unavailable [phone] Reason For Referral No Information Medications Medication [...] W/U Status Risk Notes Problem Foot ulcer (02803399) Ulcer of Other Part of Foot (707.15) Active confirmed Problem Pain in limb (72555754) Pain in Limb (729.5) Active confirmed Problem Contusion of toe (68313377) Contusion of toe (924.3) Active confirmed Problem Abscess /Cellulitis (682.7) Active confirmed Plan Of Treatment Pending Test Test Name Order Date [id number] SKIN/TISSUE 03/02/2012 Insurance Providers Payer Name Payer Address Payer Phone Subscriber Number Group Number Insured Name Patient Relationship to Insured Coverage Start Date Coverage End Date [place] ([facility]) [address] [place] [id number] Farhan Storey Self - patient is the insured Medical (General) History Medical History History ICD Code chicken pox depression Surgical History Surgery Date(Month/Year) carpal tunnel surgery ankle surgery stomach surgery
--- OUTSIDE RECORDS SUMMARY | 2025-07-24 10:49 | XMS_ITS | Clinical Summary ---
Author Organization [facility] [address] [facility] Address [address] [place] [address] Phone Care Team Providers Care Curing Bin Operator Name Role Phone Rita Wang Primary Care [...] , without long-term current use of insulin ([facility] [place]24, [facility] V28) Inject 0.5 mg under the skin [...] back pain 08/04/2024 Overview (08/04/2024): injection done [facility] 2018- MRI disc hernitation lumbar Obesity (BMI 30.0-34.9) 08/04/2024 Right ankle pain 08/04/2024 Overview (08/04/2024): OA- f/u [facility] Dr. Escalante Type 2 diabetes mellitus wit h microalbuminuria, without long-term current use of insulin ([facility] V24, [facility] V28) 08/04/2024 Vitamin D deficiency 08/04/2024 Rosacea 02/01/2023 Cellulitis and abscess of foot 07/17/2019 Overview (08/04/2024): R foot, hospitalized at [facility] 05/22/2019, [place] [facility] [place] further I+D procedures. Osteoarthritis 07/17/2019 Overview (08/04/2024): Hips and ankles, s/p cortisone inj to hips. 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 Garcia at [facility] ANKLE SURGERY 06/13/2019 Right PROCEDURE: HISTORICAL ANKLE SURGERY; COMMENT: further debridement of nonviable tissue, with wound VAC placed [place] [facility] [place] Blakely ANKLE SURGERY 06/18/2019 Right PROCEDURE: HISTORICAL ANKLE SURGERY; COMMENT: wound debridement and Integra placement at [facility] [place] Blakely ANKLE SURGERY 07/27/2019 Right PROCEDURE: HISTORICAL ANKLE SURGERY; COMMENT: removal integra, washout and debridment foot wound and split thickness graft right thigh - developed cellulitis (IV vancomycin and ceftriaxone)- PICC placed 08/06/19- d/c home 08/08/19 HIP ARTHROPLASTY 03/19/2024 Right PROCEDURE: HISTORICAL HIP REPLACEMENT; COMMENT: Dr. Renee at [facility] her daughter Medical History Medical History Date [...] 2 diabetes mellitus wit h vascular disease ([facility] V24, [facility] V28) DX:Type 2 diabetes mellitus with vascular disease (HCC) Cellulitis and abscess of foot 07/17/2019 D X:Cellulitis and abscess of foot; COMMENT: R foot, hospitalized at [facility] 05/22/2019, transferred [place] [facility] [place] for further I+D procedures. History of acute respiratory failure 07/17/2019 DX:History of acute respiratory failure; COMMENT: During 05/2019 hospitalization for R foot cellulitis. ICU intubated 06/01-06/10/19 Peripheral neuropathy 07/17/2019 DX:Periphe ral neuropathy Osteoarthritis 07/17/2019 DX:Osteoarthriti s; COMMENT: Hips and ankles, s/p cortisone inj to hips. 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 For example, child and family therapist or elderly care for an older [...] Annual Urine Albumin-Creatinine Ratio (uACR) 02/02/2024 02/01/2023 Diabetes: Blood Sugar Control Test (HGBA1C) 09/13/2024 03/13/2024, 03/13/2024 Diabetes: Annual Retina Eye Exam 10/03/2024 10/03/2023 Diabetes: Annual GFR (Glomerular Filtration Rate) 03/13/2025 03/13/2024, 03/13/2024 Hypertension/CHF/CAD Annual BMP Blood Test 03/13/2025 03/13/2024, 03/13/2024 COVID-19 Vaccine ( season) 2025 09/20/2021, 01/25/2021, 01/04/2021 Influenza Vaccine (#1) 2025 , 08/06/2022, 09/20/2021, [...] Blood Venous blood specimen / Unknown Result [facility] Provider LAB BLOOD ORDERABLES Gisella l Result * (ABNORMAL) Lipid panel (03/13/2024) [facility] LDL/HDL Ratio 5(A) 0 - 4 Triglycerides 150 0 - 150 mg/dL Cholesterol 206(A) 0 - 200 mg/dL HDL 44 >=40 mg/dL LDL Cholesterol 132(A) 0 - 100 mg/dL Blood Venous blood specimen / Unknown Result [facility] Provider LAB BLOOD ORDERABLES Gisella l Result * Diabetes Eye Exam (10/03/2023) [facility] Diabetes: Annual Retina Eye Exam abstracted Result [facility] Provider HEALTH MAINTENANCE Final Result * Urine Albumin Creatinine Ratio (02/01/2023) [facility] Urine Albumin Creatinine Ratio abstracted Result [facility] Provider HEALTH MAINTENANCE Final Result * Colonoscopy (07/29/2020) [facility] Colonoscopy no interpretation , abstracted Anatomical Region Laterality Modality Other Result [facility] Provider HEALTH MAINTENANCE Final Result from Last 3 Months or Most Recently Relevant to Health Maintenance Insurance [employer] Care Teams Curing Bin Operator Relationship Specialty Start Date End Date Rita Wang PA [address] [place] [address] PCP - General Internal Medicine 08/18/20
--- OUTSIDE RECORDS SUMMARY | 2025-07-24 10:49 | XMS_ITS | Encounter Summary ---
Author Organization [facility] Address [address] [facility] [address] [place] [address] Phone Care Team Providers Care Manager Lighting Name Role Phone Jw Humphrey MD Primary Care Provider +1- [phone] Jw Humphrey MD Primary Care Provider +1- [phone] Rita Wang Primary Care Provider + Encounter Details Date Type Department Care Team (Late st Contact Info) Description 11/25/2022 Procedure Pass [address] [place] [address] Social History Tobacco Use Types Packs/Day Years [...] documented as of this encounter Care Teams Manager Lighting Relationship Specialty Start Date End Date Jw Humphrey MD PCP - General Internal Medicine 06/10/19 09/26/23 Jw Humphrey MD [address] [place] [address] PCP - General Internal Medicine 09/27/23 10/24/24 Rita Wang PA [address] [place] [address] PCP - General 10/25/24 documented as of this encounter Additional Source Comments The information contained in this document represents components of the legal health record. It is not the complete legal health record.[facility]
--- OUTSIDE RECORDS SUMMARY | 2025-07-24 10:49 | XMS_ITS | Encounter Summary ---
Author Organization [facility] Address [address] [facility] [address] [place] [address] Phone Care Team Providers Care Finance Administrator Name Role Phone Rita Wang Primary Care Provider + Encounter Details Date Type Department Care Team (Late st Contact Info) Description 02/12/2025 Procedure Pass [facility] PERIOPERATIVE DEPT [address] [place] [address] Social History Tobacco Use Types Packs/Day Years [...] on filedocumented in this encounter Care Teams Finance Administrator Relationship Specialty Start Date End Date Rita Wang PA [address] [facility] [address] [place] [address] PCP - General 10/25/24 documented as of this encounter Additional Source Comments The information contained in this document represents components of the legal health record. It is not the complete legal health record.[facility]
--- OUTSIDE RECORDS SUMMARY | 2025-07-24 10:49 | XMS_ITS | Encounter Summary ---
Author Organization [facility] Address [address] [facility] [address] [place] [address] Phone Care Team Providers Care Supervisor Tile [employer] Mottle Name Role Phone Jw Humphrey MD Primary Care Provider +1- [phone] Rita Wang Primary Care Provider + Encounter Details Date Type Department Care Team (Late st Contact Info) Description 03/30/2024 Telephone [facility] Department of Orthopaedic Surgery, Arthroplasty Service [address] [facility], [address] [place] [address] Beto Ansari MD [address] [facility] [address] [place] [address] [email or web address] Social History Tobacco Use Types Packs/Day [...] on filedocumented in this encounter Care Teams Supervisor Tile And Mottle Relationship Specialty Start Date End Date Jw Humphrey MD [address] [place] [address] PCP - General Internal Medicine 09/27/23 10/24/24 Rita Wang PA [address] [place] [id number] PCP - General 10/25/24 documented as of this encounter Additional Source Comments The information contained in this document represents components of the legal health record. It is not the complete legal health record.[facility]
--- OUTSIDE RECORDS SUMMARY | 2025-07-24 10:49 | XMS_ITS | Encounter Summary ---
Author Organization [facility] Address [address] [place] [address] Phone Care Team Providers Care Safety Deposit Supervisor Name Role Phone Jw Humphrey MD Primary Care Provider +1- [phone] Rita Wang Primary Care Provider + Encounter Details Date Type Department Care Team (Late st Contact Info) Description 03/19/2024 Procedure Pass [facility] PERIOPERATIVE DEPT [address] [place] [address] Social History Tobacco Use Types [...] on filedocumented in this encounter Care Teams Safety Deposit Supervisor Relationship Specialty Start Date End Date Jw Humphrey MD [address] [place] [address] PCP - General Internal Medicine 09/27/23 10/24/24 Rita Wang PA [address] [place] [address] PCP - General 10/25/24 documented as of this encounter Additional Source Comments The information contained in this document represents components of the legal health record. It is not the complete legal health record.[facility]
--- OUTSIDE RECORDS SUMMARY | 2025-07-24 10:49 | XMS_ITS | Encounter Summary ---
Author Organization [facility] Address [address] [facility] [address] [place] [address] Phone Care Team Providers Care Agronomy Instructor Name Role Phone Jw Humphrey MD Primary Care Provider +1- [phone] Rita Wang Primary Care Provider + Encounter Details Date Type Department Care Team (Late st Contact Info) Description 11/16/2023 Ancillary Orders [facility] Department of Orthopaedic Surgery, Foot & Ankle Service [address] [place] [address] Beto Ansari MD [address] [facility], [facility] [address] [place] [address] [email or web address] Pain (Primary Dx) Social History Tobacco [...] clinician's provided indication for this examination in [facility]: Pain COMPARISON: XR HIPS 2+ VW EA [...] clinician's provided indication for this examination in [facility]:Pain COMPARISON: XR HIPS 2+ VW EA BILAT [...] pain documented in this encounter Care Teams Agronomy Instructor Relationship Specialty Start Date End Date Jw Humphrey MD [address] [place] [id number] PCP - General Internal Medicine 09/27/23 10/24/24 Rita Wang PA [address] [place] [phone] PCP - General 10/25/24 documented as of this encounter Additional Source Comments The information contained in this document represents components of the legal health record. It is not the complete legal health record.[facility]
== END 2025-07-24 10:33 | disposition home or self-care (01) ==
LOC: HO.HUSH 09:13
PROVIDERS: PCP Physician Assistant; Visit Provider Urology
DX: E11.69 Type 2 diabetes mellitus with other specified complication (principal); N52.1 Erectile dysfunction due to diseases classified elsewhere; R79.89 Other specified abnormal findings of blood chemistry
CPT/HCPCS: 99214